=== PATIENT | female | born 1995 | race African-American/Black ===

== ENCOUNTER 2021-05-01 13:10 | Outpatient (RCR) | payer OTHER, SELFPAY ==
[2021-04-10 18:34] VITALS: BP 107/64; PULSE 74
--- NOTE | ~2021-05-01 | US_ITS ---
EXAMINATION: US OB limited w BPP DATE: 04/10/2021 18:04 CDT INDICATION: DFM TECHNIQUE: Real-time transabdominal obstetric ultrasound. FINDINGS: No prior studies for comparison. There is a single living fetus in variable presentation. The placenta is superior/fundal without [facility] previa. WALDEMAR measures 13.8 cm. cardiac activity and movement is noted with a heart rate of 147 beats per minute. Biophysical profile: breathin of 2 movement: 2 of 2 tone: 2 of 2 Amniotic flud pocket: 2 of 2 Total score: 8 of 8 IMPRESSION: 1. Single living intrauterine in variable presentation. 2: Total biophysical profile score of 8/8. 3: Normal WALDEMAR measures 13.8 cm. Reviewed, dictated and finalized at location A.
--- NOTE | ~2021-05-01 | US_ITS ---
US umbilical doppler 04/10/2021 18:20 Indication: IUGR. DFM. Procedure: Umbilical artery pulsed Doppler examination Comparison: Ultrasound dated 04/10/2021 Findings: Umbilical artery pulsed Doppler demonstrates peak systolic to end-diastolic velocity ratios (S/D ratios) is 3.26 (normal range for gestational age is 2.38-4.53. Impression: 1: Normal umbilical arterial Doppler S/D ratios. Reviewed, dictated and finalized at location A. Impression: 1: Normal umbilical arterial Doppler S/D ratios.
[2021-05-01 13:53] VITALS: BP 104/60; PULSE 78
== END 2021-07-06 07:50 | disposition home or self-care (01) ==
LOC: ANHOBOP 13:10
PROVIDERS: Visit Provider Obstetrics & Gynecology
DX: O36.8130 Decreased fetal movements, third trimester, not applicable or unspecified (principal); O36.5930 Maternal care for other known or suspected poor fetal growth, third trimester, not applicable or unspecified; Z3A.28 28 weeks gestation of pregnancy; Z3A.31 31 weeks gestation of pregnancy
CPT/HCPCS: 59025; 76815; 76819; 76820

== ENCOUNTER 2021-05-21 09:48 | Observation (INO) | payer OTHER, SELFPAY ==
[2021-05-21] VITALS (53 sets, daily range): BP systolic 95–114; BP diastolic 43–72; PULSE 56–123; TEMP 36.2; O2SAT 96–100; BMI 27.8
--- NOTE | 2021-05-21 10:30 | OBADM ---
This patient, Oscar Elliott, admitted to the OB room 117 for observation. Patient/family oriented to hospital policies and general routines including ID bracelet, bed and alarms, visiting hours, pain management, procedures, bathroom and other care routines, personal items, smoking policy, room service/diet, and visiting hours. Patient/Family are encouraged to report perceived risks to care and to ask questions if they do not understand what they are told or what they should do.
[2021-05-21 10:51] LABS: Add Urine Microscopic? YES; Appearance Urine Clear (Clear); Bilirubin Urine Negative (Negative); Blood Urine Negative (Negative); Color Urine Straw (Yellow); Glucose Urine UA Negative (Negative); Ketones Urine Negative (Negative); Leukocyte Esterase Ur Negative LEU/UL (Negative); Mucus Urine Rare /lpf; Nitrate Urine Negative (Negative); Protein Urine Negative (Negative); RBC Urine 0-2 /hpf (0-2); Squamous Epithelial Cell Urine Few /hpf (Few); Urobilinogen Urine Negative mg/dL (<2.0); WBC Urine 0-3 /hpf
[2021-05-21] MEDS: ONDANSETRON INJ 4 MG/2 ML VIAL IV PUSH (13:01)
[2021-05-21] MEDS: LACTATED RINGERS 1,000 ML 999 ML IV CONT (13:01)
--- NOTE | 2021-06-11 20:28 | P.PNOB_ITS ---
OB - Triage/Final Diagnosis Visit Information Comments/Additional reasons for admission: I have assessed the risk for this patient, Oscar Elliott, and determined that she would benefit from observation care. Evaluation Laboratory results: Laboratory Tests 05/21/21 10:38 Urine Color Straw Urine Appearance Clear Urine pH 6.0 Ur Specific [place] 1.010 Urine Protein Negative Urine Glucose (UA) Negative Urine Ketones Negative Ur Blood (Man) Negative Urine Nitrate Negative Urine Bilirubin Negative Urine Urobilinogen Negative Leukocyte Esterase Rfl Negative Urine RBC 0-2 Urine WBC 0-3 Ur Squamous Epith Cells Few Urine Mucus Rare Final Diagnosis (1) False labor: Code(s): O47.9 - False labor, unspecified Status: Acute
== END 2021-05-21 14:47 | disposition home or self-care (01) ==
PROVIDERS: Admitting Provider Obstetrics & Gynecology; Visit Provider Obstetrics & Gynecology
DX: O47.03 False labor before 37 completed weeks of gestation, third trimester (principal); Z3A.34 34 weeks gestation of pregnancy
CPT/HCPCS: 81001; 96361; 96374; G0378; G0379; J2405; J7120

== ENCOUNTER 2021-05-27 08:00 | Observation (INO) | payer OTHER, SELFPAY ==
--- NOTE | ~2021-05-27 | US_ITS ---
EXAMINATION: US OB limited w BPP DATE: 05/27/2021 09:42 INDICATION: Spotting. Third trimester. TECHNIQUE: Real-time pelvic ultrasound was performed. COMPARISON: Ultrasound 04/10/2021 FINDINGS: There is a single living fetus in vertex presentation. The placenta is posterior and fundal. h eart rate is 125 beats per minute (bpm). Biophysical profile performed by the technologist: breathing (30 sec sustained breathing in 30 minutes): 2 out of 2 movement (3 gross body movements in 30 minutes): 2 out of 2 tone (one episode of hwbixlh-hnzeutdmp-kwknmus limb movement): 2 out of 2 Amniotic fluid pocket (2 cm): 2 out of 2 Total score: 8 out of 8 IMPRESSION: 1. Single living fetus in vertex presentation. 2. Biophysical profile 8 out of 8. 3. Normal placenta. Reviewed, dictated and finalized at location A.
--- NOTE | 2021-05-27 08:00 | OBADM ---
This patient, Oscar Elliott, admitted to the OB room OB Post 116 for observation. Patient/family oriented to hospital policies and general routines including ID bracelet, bed and alarms, visiting hours, pain management, procedures, bathroom and other care routines, personal items, smoking policy, room service/diet, and visiting hours. Patient/Family are encouraged to report perceived risks to care and to ask questions if they do not understand what they are told or what they should do.
[2021-05-27 08:15] VITALS: BP 108/68; PULSE 77; TEMP 36.4
[2021-05-27 08:20] VITALS: BMI 27.5
--- NOTE | 2021-06-01 06:38 | P.PNOB_ITS ---
OB - Triage/Final Diagnosis Visit Information Date of evaluation: 05/29/21 Reason for evaluation: threatened labor Comments/Additional reasons for admission: I have assessed the risk for this patient, Oscar Elliott, and determined that [facility]
== END 2021-05-27 10:00 | disposition home or self-care (01) ==
PROVIDERS: Admitting Provider Obstetrics & Gynecology; Visit Provider Obstetrics & Gynecology
DX: O47.03 False labor before 37 completed weeks of gestation, third trimester (principal); Z3A.35 35 weeks gestation of pregnancy
CPT/HCPCS: 76815; 76819; G0378; G0379

== ENCOUNTER 2021-06-04 12:42 | Observation (INO) | payer OTHER, SELFPAY ==
[2021-06-04 13:04] VITALS: BP 113/72; PULSE 80
[2021-06-04 13:36] VITALS: TEMP 36.6
[2021-06-04 13:40] VITALS: BMI 28.0
--- NOTE | 2021-06-04 13:42 | OBADM ---
This patient, Oscar Elliott, admitted to the OB room Labor/Delivery/Recovery 103 for observation. Patient/family oriented to hospital policies and general routines including ID bracelet, bed and alarms, visiting hours, pain management, procedures, bathroom and other care routines, personal items, smoking policy, room service/diet, and visiting hours. Patient/Family are encouraged to report perceived risks to care and to ask questions if they do not understand what they are told or what they should do.
== END 2021-06-04 13:40 | disposition home or self-care (01) ==
PROVIDERS: Admitting Provider Obstetrics & Gynecology; Visit Provider Obstetrics & Gynecology
DX: O47.9 False labor, unspecified (principal); Z3A.00 Weeks of gestation of pregnancy not specified
CPT/HCPCS: G0378; G0379

== ENCOUNTER 2021-06-09 10:03 | Observation (INO) | payer OTHER, SELFPAY ==
--- NOTE | 2021-06-09 10:03 | OBADM ---
This patient, Oscar Elliott, admitted to the OB room Labor/Delivery/Recovery 109 for observation. Patient/family oriented to hospital policies and general routines including ID bracelet, bed and alarms, visiting hours, pain management, procedures, bathroom and other care routines, personal items, smoking policy, room service/diet, and visiting hours. Patient/Family are encouraged to report perceived risks to care and to ask questions if they do not understand what they are told or what they should do.
[2021-06-09 10:40] VITALS: BMI 28.2
--- NOTE | 2021-06-09 12:04 | PC.NURSE ---
Discharge instructions reviewed with patient, patient states understanding and agrees to discharge. Patient left ambulating at 1204.
--- NOTE | 2021-06-30 07:51 | PM.OBTRLD ---
OB - Triage/Final Diagnosis Visit Information Comments/Additional reasons for admission: I have assessed the risk for this patient, Oscar Elliott, and determined that she would benefit from observation care. Final Diagnosis (1) False labor: Code(s): O47.9 - False labor, unspecified Status: Acute
== END 2021-06-09 12:04 | disposition home or self-care (01) ==
PROVIDERS: Admitting Provider Obstetrics & Gynecology; Visit Provider Obstetrics & Gynecology
DX: O47.9 False labor, unspecified (principal); Z3A.00 Weeks of gestation of pregnancy not specified
CPT/HCPCS: G0378; G0379

== ENCOUNTER 2021-06-15 18:53 | Inpatient (IN) | payer OTHER, SELFPAY ==
[2021-06-15] VITALS (8 sets, daily range): BP systolic 114–135; BP diastolic 68–84; PULSE 59–70; RESP 18; TEMP 36.3; BMI 28.0
[2021-06-15 20:37] LABS: Basophils Percent Auto 0.2 % (0.2-1.2); Eosinophils Absolute Auto 0.1 K/mm3 (0-0.3); Eosinophils Percent Auto 1.3 % (0-4.4); Hematocrit 31.3 % (37.0-47.0); Hemoglobin 10.7 g/dL (12.0-15.0); Immature Granulocyte Absolute 0.05 K/mm3 (0.00-0.031); Immature Granulocyte Percent A 0.5 % (0-0.5); Lymphocytes Absolute Auto 1.63 K/mm3 (0.9-3.2); Lymphocytes Percent Auto 16.8 % (18.3-44.2); Mean Corpuscular HGB Conc 34.2 g/dl (32-36); Mean Corpuscular Volume 90.7 fl (80-100); Mean Platelet Volume 10.1 fl (7.4-10.4); Monocytes Absolute Auto 0.9 K/mm3 (0.1-0.6); Monocytes Percent Auto 9.4 % (2.6-8.5); Neutrophils Percent Auto 71.8 % (45.5-73.1); Platelet Count Result 172 k/mm3 (150-375); Red Blood Count 3.45 M/mm3 (4.2-5.4); Red Cell Distribution Width 12.2 % (11.5-14.5); White Blood Count 9.7 K/mm3 (4.5-10.0)
--- NOTE | 2021-06-15 20:42 | LDADM ---
This patient, Oscar Elliott, was admitted to Labor/Delivery/Recovery 107 on 06/15/21 at 18:53. Plans for labor, pain management and were discussed with patient. Patient/family oriented to hospital policies and general routines including ID bracelet, bed and alarms, visiting hours, pain management, procedures, bathroom and other care routines, personal items, smoking policy, room service/diet and guest tray routines, infant security routines, and visiting hours. Patient/Family are encouraged to report perceived risks to care and to ask questions if they do not understand what they are told or what they should do. See OBIX for further documentation.
[2021-06-15] MEDS: LACTATED RINGERS 1,000 ML 125 ML IV CONT (21:03)
[2021-06-15] MEDS: OXYTOCIN 30 UNITS/NS 500 ML 30 UNITS/500 ML BAG IV CONT (21:04)
[2021-06-15 22:10] LABS: Amphetamine Screen Urine Negative (Negative); Barbiturate Screen Urine Negative (Negative); Benzodiazepines Screen Urine Negative (Negative); Cannabinoid Screen Urine Positive (Negative); Cocaine Screen Urine Negative (Negative); Methadone Screen Urine Negative (Negative); Opiate Screen Urine Negative (Negative); Phencyclidine Screen Urine Negative (Negative)
[2021-06-16] VITALS (151 sets, daily range): BP systolic 84–141; BP diastolic 59–85; PULSE 49–88; RESP 16–18; TEMP 36.3–37.1; O2SAT 94–100
[2021-06-16] MEDS: LACTATED RINGERS 1,000 ML 125 ML IV CONT ×2 (03:39→04:49)
--- NOTE | 2021-06-16 04:16 | WPDANESEPPF ---
Anes - Initial Pre Proc Eval Procedure: labor epidural Date/Time: 06/16/21 04:16 Surgeon: Jimmie Garvin MD Pre Op Diagnosis: labor pain Pre Op Diagnosis: Rupture of Membranes/Labor Patient Data Age: 25 Gender: F Height: 1.57 m Weight: 69.5 kg Last Vital Signs Temp 36.6 C 06/16/21 03:31 Pulse 57 L 06/16/21 04:16 Resp 18 06/16/21 03:31 BP 127/76 06/16/21 04:16 Pulse Ox 99 06/16/21 04:11 Allergies Allergy/AdvReac Type Severity Reaction Status Date / Time latex AdvReac Swelling Verified 06/15/21 21:05 Home Medications Medication Instructions Recorded Confirmed Type PNV cmb#95-ferrous fumarate-FA 1 tablet PO DAILY 05/21/21 06/15/21 History [] Slow Fe 142 mg PO DAILY 05/21/21 06/15/21 History Laboratory Tests 06/15/21 06/15/21 06/15/21 20:29 20:29 20:29 WBC 9.7 K/mm3 K/mm3 (4.5-10.0) RBC 3.45 M/mm3 L M/mm3 (4.2-5.4) Hgb 10.7 g/dL L g/dL (12.0-15.0) Hct 31.3 % L % (37.0-47.0) MCV 90.7 fl fl (80-100) MCH 31.0 pg pg (26-34) MCHC 34.2 g/dl g/dl (32-36) RDW 12.2 % % (11.5-14.5) Plt Count 172 k/mm3 k/mm3 (150-375) MPV 10.1 fl fl (7.4-10.4) Immature Gran % (Auto) 0.5 % % (0-0.5) Neut % (Auto) 71.8 % % (45.5-73.1) Lymph % (Auto) 16.8 % L % (18.3-44.2) [place] % (Auto) 9.4 % H % (2.6-8.5) Eos % (Auto) 1.3 % % (0-4.4) Baso % (Auto) 0.2 % % (0.2-1.2) Lymph # (Auto) 1.63 K/mm3 K/mm3 (0.9-3.2) [place] # (Auto) 0.9 K/mm3 H K/mm3 (0.1-0.6) Eos # (Auto) 0.1 K/mm3 K/mm3 (0-0.3) Baso # (Auto) 0.0 K/mm3 K/mm3 (0.0-0.1) Abs Immat Gran (auto) 0.05 K/mm3 H K/mm3 (0.00-0.031) Absolute Neuts (auto) 7.0 K/mm3 H K/mm3 (1.3-6.7) Absolute Nucleated RBC 0.0 K/mm3 K/mm3 (0.0-0.012) Nucleated RBC % 0.0 % % (0.0-0.2) Urine Opiates Screen Urine Methadone Screen Ur Barbiturates Screen Ur Phencyclidine Scrn Ur Amphetamine Screen U Benzodiazepines Scrn Urine Cocaine Screen U Cannabinoids Screen RPR Pending Blood Type A Positive Antibody Screen Negative 06/15/21 21:12 WBC RBC Hgb Hct MCV MCH MCHC RDW Plt Count MPV Immature Gran % (Auto) Neut % (Auto) Lymph % (Auto) [place] % (Auto) Eos % (Auto) Baso % (Auto) Lymph # (Auto) [place] # (Auto) Eos # (Auto) Baso # (Auto) Abs Immat Gran (auto) Absolute Neuts (auto) Absolute Nucleated RBC Nucleated RBC % Urine Opiates Screen Negative (Negative) Urine Methadone Screen Negative (Negative) Ur Barbiturates Screen Negative (Negative) Ur Phencyclidine Scrn Negative (Negative) Ur Amphetamine Screen Negative (Negative) U Benzodiazepines Scrn Negative (Negative) Urine Cocaine Screen Negative (Negative) U Cannabinoids Screen Positive A (Negative) RPR Blood Type Antibody Screen Patient hx anesthesia problems: none Family hx anesthesia problems: none PMFSH Social History Social History Smoking status: Never smoker Substance use: former Spiritual care concerns: No Anes - Eval Final PreProcedure Day of Procedure 06/16/21 04:16 Patient weight: overweight Heart: regular rate and rhythm Lungs: clear to auscultation and normal air movement Airway: Mallampati scale Neurological: alert and oriented ASA classification: II Emergent: no Anesthesia type and monitoring: regional epidural and standard monitoring Informed Consent: The patient's anesthetic plan and its attendant ri
[2021-06-16] MEDS: AMPICILLIN 2 GM/NS 100 ML 2 GM/100 ML BAG IVPB (07:59)
--- NOTE | 2021-06-16 07:59 | P.HP_ITS ---
Obstetrics - Admit Note Admission Note: 25 y/o G1 here with srom. record reviewed. No pertinent additions to the history and/or any subsequent changes in the physical findings that are not consistent with the expected course of the were found. Additions to the history and/or subsequent changes in the physical findings michael dorado. None.
[2021-06-16 09:47] LABS: Rapid Plasma Reagin Non-Reactive (NonReactive)
--- NOTE | 2021-06-16 10:09 | PM.OBPRVD ---
OB - Delivery Note Procedure Delivery date: 06/16/21 Intrapartal events: None Induction method: none Delivery augmentation: pitocin Delivery monitor: external FHT and external uterine Route of delivery: Episiotomy description: None Laceration Description: None Quantitative Blood Loss (ml): 241 Anesthesia type: Epidural Narrative: Mother and baby in stable condition. Cord gasses collected and handed off to staff. Baby Date of : 06/16/21 Time of : 09:57 Weeks of gestation at delivery: 38 Infant gender: Female presentation: vertex position: Left Occiput Anterior Placenta delivery description: Spontaneous cord vessel description: Delayed Cord Clamping
[2021-06-16] MEDS: OXYTOCIN 30 UNITS/NS 500 ML 30 UNITS/500 ML BAG 125 UNITS IV CONT (10:30)
[2021-06-16] MEDS: miSOPROStol 200 MCG TABLET 800 MCG RECTAL (10:47)
--- NOTE | 2021-06-16 13:01 | PC.NURSE ---
Patient transferred to post room #278 via wheelchair. Support person present. Oriented to unit, room, information board, rooming in, admission packet and security measures. Patient verbalizes understanding.
[2021-06-16] MEDS: IBUPROFEN 600 MG TABLET PO (16:29)
[2021-06-17] MEDS: IBUPROFEN 600 MG TABLET PO ×2 (00:20→07:46)
[2021-06-17] MEDS: ACETAMINOPHEN 325 MG TABLET 650 MG PO ×3 (01:15→22:55)
[2021-06-17 04:45] LABS: Hematocrit 23.7 % (37.0-47.0)
--- NOTE | 2021-06-17 07:30 | PC.NURSE ---
PT introductions made and plan of care discussed per post , pain management, bottle feeding, daily care activities. PT recipient of any education and or instructions per shift. PT received instructions per one to one discussion, mom baby care guide and demonstrations. PT show no evidence of learning barriers at this time. PT verbalized understanding of such care.
--- NOTE | 2021-06-17 07:41 | PM.OBPNVD ---
OB - PN: Subj Subjective Date/time seen: 06/17/21 07:41 Patient comments: no complaints baby status: doing well OB - PN: Obj Data Labs CBC & Chem 7: 06/17/21 04:36 Labs: Laboratory Results - last 24 hr 06/15/21 06/17/21 20:29 04:36 Hgb 8.0 L Hct 23.7 L RPR Non-reactive OB - PN A/P Plan day: 1 Plan: routine care and discharge home Time Spent With Patient Time: Total time spent is greater than 50% in coordination of care (as documented) at patient's floor/unit and/or counseling patient: Review of Systems Review of Systems: All systems reviewed & are unremarkable except as noted in HPI and below Exam Const: General: cooperative Psych: Attitude: cooperative Thought process: Normal thought process present Thought content: Yes Normal thought content present Insight: Good insight present (Psych)
[2021-06-17] MEDS: DOCUSATE SODIUM 100 MG CAPSULE PO ×2 (07:44→19:15)
[2021-06-17 07:45] VITALS: BP 112/67; PULSE 58; RESP 16; TEMP 36.7; O2SAT 100
[2021-06-17] MEDS: ALPRAZolam (*CRX) 0.25 MG TABLET PO (07:46)
[2021-06-17] MEDS: POLYSACCHARIDE IRON COMPLEX 150 MG CAPSULE PO ×2 (07:46→19:15)
--- NOTE | 2021-06-17 08:45 | WPDANLDPN2 ---
Anes-Prog Note L&D Date/Time: 06/17/21 08:45 Comfortable throughout: labor and delivery Neuraxial method: epidural Epidural/Spinal procedure site: clean & non-tender Neuro status: Neuro function grossly intact. Cardiovascular status: normal Respiratory status: normal Airway patency: baseline Mental status: baseline Post-Op hydration status: normal Vital Signs: Last Vital Signs Temp 98.1 F 06/16/21 19:30 Pulse 69 06/16/21 19:30 Resp 16 06/16/21 19:30 BP 104/64 06/16/21 19:30 Pulse Ox 100 06/16/21 16:30 Pain score (VAS): 0 Post-procedural complaints: none Patient feedback: Patient satisfied with anesthetic care.
--- NOTE | 2021-06-17 11:55 | PCCCNOTE ---
Care Coordination met with pt. this morning to discuss discharge planning. Pt.'s current D/C plan is to return home alone. Pt. states she lives alone but has local friend/family support. FOB does not live in the home but is supportive. Pt. confirms she has everything needed to safely bring baby home. She confirms that she has a car seat and a place for baby to sleep. Car seat in room. Pt. is in process for applying for [facility], she has been provided a list of resources. Pt. informed that she tested positive for THC at time of admission. Pt. states she used prior to and continued to used throughout. Baby has no urine drug screen, meconium is pending. CC completed online report with ANTONIO DESAI, . Will follow.
[2021-06-17 20:00] VITALS: BP 115/76; PULSE 61; RESP 18; TEMP 36.7; O2SAT 100
[2021-06-18] MEDS: IBUPROFEN 600 MG TABLET PO (04:48)
--- NOTE | 2021-06-18 07:00 | PC.NURSE ---
PT introductions made and plan of care discussed per post , pain management, bottle feeding, daily care activities and pending discharge to home. PT and fob recipients of instructions and education this shift. Pt received one to one discussion, mom baby care guide and demonstration. PT show no barriers to learning at this time. PT verbalized understanding of such care.
[2021-06-18 08:00] VITALS: BP 136/75; PULSE 53; RESP 16; TEMP 36.8; O2SAT 100
--- NOTE | 2021-06-18 08:00 | PM.OBPNVD ---
OB - PN: Subj Subjective Date/time seen: 06/18/21 08:00 Patient comments: no complaints baby status: doing well OB - PN: Obj Data Labs CBC & Chem 7: 06/17/21 04:36 OB - PN A/P Plan day: 2 Plan: routine care and discharge home (F/U in 4 weeks) Time Spent With Patient Time: Total time spent is greater than 50% in coordination of care (as documented) at patient's floor/unit and/or counseling patient: Time with patient: less than 15 minutes Review of Systems Review of Systems: All systems reviewed & are unremarkable except as noted in HPI and below Exam Narrative: Fundus firm and vaginal flow controlled. No lower ext redness, warmth, or edema. Negative homans. Const: General: comfortable Chest: Breast/axilla inspection: normal inspection of the breasts Resp: Effort & Inspection: normal respiratory effort Cardio: Rate: regular rate GI: GI Palp: Yes Soft to palpation Psych: Appearance: grossly normal Affect: normal affect Attitude: cooperative Thought content: Yes Normal thought content present Judgement: Good judgement present (Psych)
--- NOTE | 2021-06-18 08:01 | PM.OBDSVD ---
DS: Admitting Diagnosis Discharge Date Labor Admitting Diagnosis Labor OB - DS: Summary OB Procedures : None OB Procedures Intrapartum: Spontaneous Vag Delivery OB Procedures: : None Time Spent with Patient Time attestation: Total time spent providing and/or coordinating discharge services: DS: Data Data Completed and Pending Pending studies at discharge: Pending at discharge 06/16/21 10:04 Surgical [PTH] Routine Discharge Plan Discharge Attending physician on discharge: Jimmie Garvin Discharging Clinician: Soledad Smith Patient Disposition: Home, Self-Care Activity: pelvic rest Diet: regular Discharge Instructions: Education: Mom and Baby Guide Given to: Mother Follow-Up: Call your delivering provider's office for an appointment to be seen in: 4 Weeks Mom and baby should come to the [facility] for the follow-up appointment. Appointment Date/Time: June 20, 2021 at 8:00 am What to expect at your follow-up visit: Blood Pressure Check Call [phone] if you are unable to keep your appointment time. BREAST CARE: * Wear a snug supportive bra. * For engorgement discomfort: Bottle Feeding: * May apply ice packs PERINEAL CARE: * Until bleeding stops, use your ynes bottle after urinating * Change your pad frequently throughout the day * You may take sitz baths several times a day (fill your bathtub with warm water and soak for 20 minutes.) Do NOT bathe in the water * No tub baths until seen by your physician - You may shower ACTIVITY: * Rest as much as possible. * Do not exercise or lift anything heavier than your baby (such as laundry or other children.) * Avoid stairs or driving as much as possible. * Do not put anything into the vagina. No douching, tampons, or sexual activity until seen by physician. NOTIFY PHYSICIAN IF YOU HAVE ANY QUESTIONS OR IF ANY OF THE FOLLOWING SYMPTOMS OCCUR: * If your perineum becomes red, swollen, or more painful than what you have experienced in the hospital. * If your vaginal bleeding becomes foul smelling. * If your vaginal bleeding becomes more heavy than a period or if your bleeding changes from pink to bright red. However, you may pass an occasional walnut-sized clot once or twice for the first week . * If you experience a sharp, shooting pain in you calves. * If you discover a hard, reddened area on your breast or if you experience flu-like symptoms. * If you have a fever of 100.4 or greater DIET: * Eat regular, well-balanced meals. * Drink plenty of fluids daily. If , drink to thirst. Patient Instructions: Antibiotic Form Stand Alone Forms: General Discharge Information Follow-up/Referrals: Ree Kolb CNM [Certified Nurse [employer]] - 4 Weeks Discharge Medications: Continued Slow Fe 142 mg (45 mg iron) Tablet Extended Release 142 mg PO DAILY RF: 0 PNV cmb#95-ferrous fumarate-FA [] 28 mg iron- 800 mcg Tablet 1 tablet PO DAILY RF: 0 Date of admission: 06/15/21 18:53 Primary Care Provider: PHYSICIAN,DIRECTOR [employer] Admitting Provider: Jimmie Garvin Attending physician on admission: Jimmie Garvin Condition: Stable
[2021-06-18] MEDS: DOCUSATE SODIUM 100 MG CAPSULE PO (09:43)
[2021-06-18] MEDS: POLYSACCHARIDE IRON COMPLEX 150 MG CAPSULE PO (09:43)
[2021-06-18] MEDS: ALPRAZolam (*CRX) 0.25 MG TABLET PO (09:44)
[2021-06-18] MEDS: ACETAMINOPHEN 325 MG TABLET 650 MG PO (09:44)
[2021-06-18 09:45] VITALS: PULSE 53; RESP 16; O2SAT 100
--- NOTE | 2021-06-18 09:45 | PC.NURSE ---
PT received discharged instructions per protocol and verbalized understanding of such care. Patient was given the opportunity to view the discharge video Mother & Baby Care, The First Two Weeks and to ask questions. Patient declined viewing the video and has been given the mother/baby guide for home reference.
--- NOTE | 2021-06-18 10:05 | PC.NURSE ---
PT discharged to home ambulatory accompanied by spouse and and taken to waiting car. Follow up appts confirmed
[2021-06-20 08:50] VITALS: BP 120/74; PULSE 68; RESP 20; TEMP 36.9; O2SAT 100
== END 2021-06-18 10:05 | disposition home or self-care (01) | DRG 560 ==
LOC: ANHLDR 20:03 → ANHOB2 06-16 13:09
PROVIDERS: Advanced Practice Midwife; Admitting Provider Obstetrics & Gynecology; Visit Provider Obstetrics & Gynecology
DX: O42.92 Full-term premature rupture of membranes, unspecified as to length of time between rupture and onset of labor (principal); Z37.0 Single live birth; Z3A.38 38 weeks gestation of pregnancy; O99.344 Other mental disorders complicating childbirth; F41.9 Anxiety disorder, unspecified
CPT/HCPCS: 36415; 80307; 85014; 85018; 85025; 86592; 86850; 86900; 86901; 88307; A9270; J0290; J2590; J2795; J7120

== ENCOUNTER 2024-11-01 09:27 | Emergency (ER) | payer OTHER, MEDICAID, SELFPAY ==
--- NOTE | ~2024-11-01 | US_ITS ---
EXAMINATION: US OB <=14 wk fetus w TV DATE: 11/01/2024 13:18 INDICATION: Vaginal bleeding during first trimester TECHNIQUE: Real-time pelvic ultrasound utilizing both a transvaginal and transabdominal probe was pe rformed. The interpreting radiologist was not present for the study. COMPARISON: None. FINDINGS: The uterus measures 8.2 x 3.9 x 5.1 cm. The endometrial complex measures 2-3 mm thickness at the fund us. Endometrial complex measures 13 mm in thickness may lower uterine segment within which there is a 7 mm fluid collection without a definitive yolk sac or pole, potentially representing a gestat ional sac. The mean diameter of the fluid collection measures 6 mm, which would correlate with an est imated gestational age of 5 weeks and 2 days. The right ovary measures 3.0 x 2.9 x 1.0 cm. The left ovary measures 2.5 x 1.9 x 1.3 cm. Vascular shelley w identified within both ovaries on color Doppler. There are few subcentimeter anechoic follicles at the bilateral ovaries. There is no free fluid in the pelvis. IMPRESSION: 1. 6 mm diameter fluid collection within the lower uterine segment without a definitive yolk sac or f etal pole, likely but not definitively an early gestational sac. Differential would remain early, damon led or ectopic . 2. Presuming this represents a gestational sac, the estimated gestational age by ultrasound would be 5 weeks 2 day(s) +/- 3 day(s) with ultrasound estimated date of delivery (AIDEN) of 07/02/2025. Reviewed, dictated and finalized at location B. T BUYER IMPRESSION: 1. 6 mm diameter fluid collection within the lower uterine segment without a de finitive yolk sac or pole, likely but not definitively an early gestation al sac. Differential would remain early, failed or ectopic . 2. Presuming this represents a gestational sac, the estimated gestational age b y ultrasound would be 5 weeks 2 day(s) +/- 3 day(s) with ultrasound estimated d ate of delivery (AIDEN) of 07/02/2025.
[2024-11-01 09:28] VITALS: BP 119/74; PULSE 76; RESP 16; TEMP 36.4; O2SAT 100
--- OUTSIDE RECORDS SUMMARY | 2024-11-01 09:59 | XMS_ITS | Patient Health Summary ---
Author Organization [facility] [email or web address] Address [address] [place] [address] Care Team Providers Care Cytogenetic Technician Name Role Phone Unavailable Primary Care Provider Unavailabl e Note from [facility],non-owned Affiliates and Associated Physician Practices is amultiple site organization consisting of ambulatory clinics and hospital sitesin [place], [place], [place] and [place]. This disclosure is being madepursuant to the Care Everywhere program and may not contain all information available regarding this patient. Last updated 18.[facility] [email or web address] Allergies No known active allergies Active Problems Problem Noted Date Diagnosed Date Screening, , for anatomic survey Abnormal MSAFP (maternal serum alpha-fetoprotein ), elevated Encounter for screening for cervical l ength Family history of chromosomal abnormality Evaluate anatomy not seen on prior sonogram Encounter for ultrasound to assess interval grow th of fetus Social History Tobacco Use Types Packs/Day Years Used Date Smoking Tobacco: Never Assessed Sex and Gender Information Value Date Recorded Sex Assigned at Not on file Gender Identity Not on file Sexual Orientation Not on file Last Filed Vital Signs Vital Sign Reading Time Taken Comments Blood Pressure 101/68 06/02/2021 12:49 PM CDT Pulse 77 06/02/2021 12:49 PM CDT Temperature - - Respiratory Rate - - Oxygen Saturation - - Inhaled Oxygen Concentration - - Weight - - Height - - Body Mass Index - - Procedures * BIOPHYSICAL PROFILE W NST(Performed 06/02/2021) Performed for Abnormal MSAFP (maternal serum alpha-fetoprotein), elevated * BIOPHYSICAL PROFILE W NST(Performed 05/26/2021) Performed for Abnormal MSAFP (maternal serum alpha-fetoprotein), elevated * BIOPHYSICAL PROFILE W NST(Performed 05/19/2021) * BIOPHYSICAL PROFILE W NST(Performed 05/12/2021) * BIOPHYSICAL PROFILE W NST(Performed 05/05/2021) * SONOGRAM - COMPLETE(Performed 03/24/2021) * SONOGRAM - COMPLETE(Performed 02/18/2021) * SONOGRAM - COMPLETE(Performed 01/21/2021) Results * BIOPHYSICAL PROFILE W NST (06/02/2021 1:32 PM CDT) Only the most recent of5 resultswithin the time period is included. Anatomical Region Laterality Modality Other 06/02/2021 1:32 PM CDT Narrative 06/02/2021 3:16 PM CDT ?Formerly named [facility] ? - [place] ? M[facility] & Care Center ?PHONE: ??FAX: Pat. Name: ?OSCAR SUERO Pat. No: ?[id number] Study Date: ?? 06/02/2021 ??1:32pm , Age: ? 1995, 25 Pregnancies: ?? 2, Para 0, Ab 1 Height: ? 62 in Weight: ? 144 lb LMP: ?Unknown GA by Base: ?? 36w1d ?? AIDEN: 06/29/2021 GA by US: ? 36w1d ?? AIDEN: 06/29/2021 GA Selected: ??36w1d (From [facility]) AIDEN: ?06/29/2021 Referring MD: Levy Garvin MD Phone Representative: ??Colleen Coronado RDMS CPT4: ? 78021,02741 BMI: ?26.34 Hist/Ind: ? Elevated MSAFP (7.63 MoM) ?Low-risk NIPT (female) ?Sibling with DeGeorge syndrome MEASUREMENTS & AGE ? GROWTH EVALUATION Measurement ??GA ? Range ? Srce %for GA Ratios ----- ---- ------- BPD ??8.9 cm 36w1d (88t2a-85m6o) Hadl BPD 59% FL/BPD 0.79 (0.71 - 0.87) HC ??32.4 cm 36w5d (52o1e-71y5g) Hadl HC ??32% FL/AC ??0.22 (0.20 - 0.24) AC ??31.7 cm 35w4d (00a5x-46b3d) Hadl AC ??42% HC/AC ??1.02 (0.92 - 1.11) FL ?? 7.1 cm 36w1d (29z8a-15f9u) Hadl FL ??46% CI ? 0.78 (0.70 - 0.86) HL ?? 6.2 cm 36w0d (28p4y-80m1a) Frank HL ??46% GA for sonogram 36w1d (83j8g-30i4o) ?? Weight Estimate: based on (BPD,HC,AC,FL) Avg ?Weight: 2800 gm (2391-3209gm) Had ? : 6lbs, 2oz ? Normal: 2844 gm (2133- 3554gm) Had ? Wt% ? 45% for 36w1d Heart Rate: 148 bpm Amniotic Fluid Index: 25.1cm (07.7-24.8)* Q1: 7.1cm ??Q2: 4.7cm ??Q3: 5.7cm ??Q4: 7.6cm ?? Biophysical Profile: 07/12 Breathin ?? Tone: 2 ?? NST: 2 Movement: ??2 ?? AFV: ??2 EVAL, PLACENTA Presentation: cephalic Placenta: posterior Heart Rate: 148 bpm Amniotic Fluid Volume: increased CLINICAL SUMMARY Study Number: 8 ?? A single fetus is seen in cephalic presentation. ??The measurements today are consistent with appropriate interval growth. ??The AIDEN is based on prior ultrasound examination. ??The amniotic fluid volume is increased. ?? The FHR baseline was 145 bpm during today's reactive NST. ??The FHR variability was moderate and no significant decelerations were detected. ?? IMPRESSION: Single, live, intrauterine at 36w1d ?? Appropriate size and interval growth Amniotic fluid volume is at the upper limits of normal Biophysical profile: Reassuring ?? RECOMMEND: Continue weekly testing through delivery Thank you for allowing us the opportunity to care for your patient. ?? Compa Colbert MD <Electronic Signature> ??06/02/2021 03:13pm Lucas Garvin MD [facility] ORDERABLES * SONOGRAM - COMPLETE (03/24/2021 1:35 PM CDT) Only the most recent of3 resultswithin the time period is included. Anatomical Region Laterality Modality Other 03/24/2021 1:35 PM CDT Narrative 03/24/2021 2:09 PM CDT ? [facility] ? M[facility] & Care Center ?PHONE: ??FAX: Pat. Name: ?OSCAR SUERO. No: ?[id number] Study Date: ?? 03/24/2021 ??1:35pm , Age: ? 1995, 25 Pregnancies: ?? 2, Para 0, Ab 1 Height: ? 62 in Weight: ? 145 lb LMP: ?Unknown GA by Base: ?? 26w1d ?? AIDEN: 06/29/2021 GA by US: ? 25w2d ?? AIDEN: 07/05/2021 GA Selected: ??26w1d (From [facility]) AIDEN: ?06/29/2021 Referring MD: Levy Garvin MD Phone Representative: ??Florin Blackwell, [facility] CPT4: ? 26048 BMI: ?26.52 Hist/Ind: ? Incomplete Anatomy Screen ?Elevated MSAFP (7.63 MoM) 1 in 10 risk for ONTD ?Low Risk NIPT (Female) ?Sibling with DeGeorge syndrome MEASUREMENTS & AGE ? GROWTH EVALUATION Measurement ??GA ? Range ? Srce %for GA Ratios ----- ---- ------- BPD ??6.1 cm 24w5d (64z8x-97i8o) Hadl BPD 5% FL/BPD 0.79 (0.71 - 0.87) HC ??23.5 cm 25w4d (33z9q-02i7n) Hadl HC ??9% FL/AC ??0.22 (0.20 - 0.24) AC ??21.5 cm 26w0d (28a1t-25v8f) Hadl AC ??34% HC/AC ??1.09 (1.00 - 1.19) FL ?? 4.8 cm 26w0d (91r3q-81o0x) Hadl FL ??32% CI ? 0.71 (0.70 - 0.86) GA for sonogram 25w2d (30m6k-02m7m) ?? Weight Estimate: based on (BPD,HC,AC,FL) Hadlock ?Weight: 862 gm (736-988gm) Hadloc ? : 1lbs, 14oz ? Normal: 933 gm (700- 1166gm) Hadlo ? Wt% ? 28% for 26w1d Heart Rate: 151 bpm Amniotic Fluid Index: 04.7cm (Deepest Pocket) EVAL, PLACENTA Presentation: breech Umbilical Cord: 3 Vessels Placenta: posterior Heart Rate: 151 bpm Amniotic Fluid Volume: normal Anatomy!Normal!Abnormal!Suboptimal!Prev. Seen!Comments Cranium ?! ?! ?! ?! ? x ?! Mdl (CSP/Thal! ?! ?! ?! ? x ?! Ventricles ?? ! ?! ?! ?! ? x ?! Choroid Plexu! ?! ?! ?! ? x ?! Cerebellum ?? ! ?! ?! ?! ? x ?! Cerebellar Ve! ?! ?! ?! ? x ?! Cisterna M. ??! ?! ?! ?! ? x ?! Nuchal Fold ??! ?! ?! ?! ? x ?! Orbits ? ! ?! ?! ?! ? x ?! Profile ?! ?? x ??! ?! ?! ? x ?! Nasal Bone ?? ! ?! ?! ?! ? x ?! Lip ?! ?! ?! ?! ? x ?! Maxilla ?! ?! ?! ?! ? x ?! Mandible ? ! ?! ?! ?! ? x ?! Neck ? ! ?! ?! ?! ? x ?! Spine ?! ?! ?! ?! ? x ?! Lungs ?! ?! ?! ?! ? x ?! 4 Chamber Hea! ?! ?! ?! ? x ?! LVOT ? ! ?! ?! ?! ? x ?! RVOT ? ! ?! ?! ?! ? x ?! 3 Vessel View! ?! ?! ?! ? x ?! 3 Vessel Trac! ?! ?! ?! ? x ?! Cross-over ?? ! ?! ?! ?! ? x ?! Ductal Arch ??! ?! ?! ?! ? x ?! Aortic Arch ??! ?! ?! ?! ? x ?! Caval View ?? ! ?! ?! ?! ? x ?! Situs ?! ?! ?! ?! ? x ?! Diaphragm ?! ?! ?! ?! ? x ?! Stomach ?! ?? x ??! ?! ?! ? x ?! Liver ?! ?! ?! ?! ? x ?! Bowel ?! ?! ?! ?! ? x ?! Kidneys ?! ?! ?! ?! ? x ?! Bladder ?! ?? x ??! ?! ?! ? x ?! 3 Vessel Cord! ?! ?! ?! ? x ?! Cord In! ?! ?! ?! ? x ?! Upper Extremi! ?! ?! ?! ? x ?! Hands ?! ?! ?! ?! ? x ?! Lower Extremi! ?! ?! ?! ? x ?! Feet ? ! ?! ?! ?! ? x ?! External Shanika! ?! ?! ?! ? x ?! Placental Cor! ?! ?! ?! ? x ?! CLINICAL SUMMARY Study Number: 3 ?? A single fetus is identified in breech presentation. ??The measurements today are consistent with appropriate growth compared to previous examination. ??The AIDEN selected is based on a prior ultrasound examination. ??The amniotic fluid volume appears normal. ??The placenta is posterior. ??No abnormalities of the profile are detected. IMPRESSION: ?? Live, love IUP at 26w1d size consistent with established AIDEN No sonographic signs of abnormality Normal amniotic fluid volume RECOMMEND: ?? Repeat ultrasound at about 32 weeks to screen for IUGR ?? Begin weekly testing at that time (BPP/NST) Thank you for allowing us the opportunity to care for your patient. Nury Kat MD <Electronic Signature> ??03/24/2021 02:07pm Nury Kat MD [facility] ORDERABLES
--- OUTSIDE RECORDS SUMMARY | 2024-11-01 09:59 | XMS_ITS | Clinical Summary ---
Author Organization [facility] Address [address] [place] [phone] Phone Care Team Providers Care Computer Aided Design Operator Name Role Phone Unavailable Primary Care Provider Unavailabl e Allergies No known active allergies Medications No known medications Social History Tobacco Use Types Packs/Day Years Used Date Smoking Tobacco: Never Assessed Comments Yes Sex and Gender Information Value Date Recorded Sex Assigned at Not on file Legal Sex Female 3:54 PM CDT Gender Identity Not on file Sexual Orientation Not on file Last Filed Vital Signs Vital Sign Reading Time Taken Comments Blood Pressure 93/58 07/16/2022 9:30 PM CDT Pulse 67 07/16/2022 9:30 PM CDT Temperature 37 ??C (98.6 ??F) 07/16/2022 4:04 PM CDT Respiratory Rate 16 07/16/2022 9:30 PM CDT Oxygen Saturation 97% 07/16/2022 9:30 PM CDT Inhaled Oxygen Concentration - - Weight 59 kg (130 lb) 07/16/2022 4:04 PM CDT Height 157.5 cm (5' 2 ) 07/16/2022 4:04 PM CDT Body Mass Index 23.78 07/16/2022 4:04 PM CDT Plan of Treatment Health Maintenance Due Date Last Done Comments PNEUMOCOCCAL VACCINE 0-64 YE ARS (1 of 2 - PCV) 2002 CERVICAL CANCER SCREENING 2017 DTAP/TDAP/TD VACCINES (7 - T d or Tdap) 06/19/2019 06/19/2009, 07/11/2002, 03/19/1998, Additional history exists INFLUENZA VACCINE (#1) 2024 RSV VACCINE (60+ or ) (1 - 1-dose 75+ series) 2071 HEPATITIS B VACCINES Completed 08/15/1997, 1996, 1996 HPV VACCINES Completed 05/14/2011, 06/03, 06/19/2007 Insurance [employer] [place]
--- OUTSIDE RECORDS SUMMARY | 2024-11-01 09:59 | XMS_ITS | Clinical Summary ---
Author Organization [facility] Address [address] [place] [address] Care Team Providers Care Mounter Name Role Phone Unavailable Primary Care Provider Unavailabl e Source Comments [facility],non-owned Affiliates and Associated Physician Practices is amultiple site organization consisting of ambulatory clinics and hospital sitesin [place], [place], [place] and [place]. This disclosure is being madepursuant to the Care Everywhere program and may not contain all information available regarding this patient. Last updated 18.[facility] Allergies No known active allergies Active Problems [...] - - Body Mass Index - - Plan of Treatment Health Maintenance Due Date Last Done Comments PAP SMEAR 1996 HIV SCREENING 2011 HEPATITIS C SCREENING 09/06/2014 DTAP/TDAP/TD VACCINES (1 - Tdap) 2015 HEPATITIS B VACCINE (1 of 3 - 19+ 3-dose series) 2015 COVID-19 VACCINE (2023-2 5 season) 2024 INFLUENZA VACCINE (#1) 2024 DEPRESSION SCREENING 10/03/2024 ZOSTER VACCINE (1 of 2) 2046 HIB VACCINE Aged Out No longer eligi ble based on patient's age to complete this topic HPV VACCINE Aged Out No longer eligi ble based on patient's age to complete this topic MENINGOCOCCAL (Group B) VACCINE Aged Out No longer eligible based on patient's age to complete this topic MENINGOCOCCAL VACCINE Aged Out No sussy nicole eligible based on patient's age to complete this topic PNEUMOCOCCAL VACCINE Aged Out No long er eligible based on patient's age to complete this topic
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
--- OUTSIDE RECORDS SUMMARY | 2024-11-01 09:59 | XMS_ITS | Referral Summary ---
Author Organization [facility] [email or web address] Address [address] [place] [address] Care Team Providers Care Dag Sprayer Name Role Phone Unavailable Primary Care Provider Unavailabl e Source Comments [facility],non-owned Affiliates and Associated Physician Practices is amultiple site organization consisting of ambulatory clinics and hospital sitesin [place], [place], [place] and [place]. This disclosure is being madepursuant to the Care Everywhere program and may not contain all information available regarding this patient. Last updated 18.[facility] [email or web address] Allergies No known active allergies Active Problems [...] Mass Index - - Plan of Treatment Not on file
[2024-11-01 10:43] VITALS: BP 104/64; PULSE 70; RESP 16; TEMP 36.6; O2SAT 99
[2024-11-01 10:54] LABS: Basophils Percent Auto 0.4 % (0.2-1.2); Eosinophils Absolute Auto 0.1 K/mm3 (0-0.3); Eosinophils Percent Auto 1.4 % (0-4.4); Hematocrit 37.7 % (37.0-47.0); Hemoglobin 12.6 g/dL (12.0-15.0); Immature Granulocyte Absolute 0.02 K/mm3 (0.00-0.031); Immature Granulocyte Percent A 0.3 % (0-0.5); Lymphocytes Absolute Auto 1.92 K/mm3 (0.9-3.2); Lymphocytes Percent Auto 24.6 % (18.3-44.2); Mean Corpuscular HGB Conc 33.4 g/dl (32-36); Mean Corpuscular Hemoglobin 30.9 pg (26-34); Mean Corpuscular Volume 92.4 fl (80-100); Mean Platelet Volume 8.9 fl (7.4-10.4); Monocytes Absolute Auto 0.6 K/mm3 (0.1-0.6); Monocytes Percent Auto 7.3 % (2.6-8.5); Neutrophils Absolute Auto 5.2 K/mm3 (1.3-6.7); Platelet Count Result 259 k/mm3 (150-375); Red Blood Count 4.08 M/mm3 (4.2-5.4); Red Cell Distribution Width 12.5 % (11.5-14.5); White Blood Count 7.8 K/mm3 (4.5-10.0)
[2024-11-01 11:00] VITALS: BP 109/59; PULSE 68; RESP 16; O2SAT 100
[2024-11-01 11:06] LABS: INR 0.9; Partial Thromboplastin Time 26.7 Seconds (22.3-36.8); Prothrombin Time 12.9 Seconds (11.1-14.7)
[2024-11-01 11:08] LABS: Alanine Aminotransferase 13 U/L (6-35); Albumin Level 4.7 g/dL (3.5-5.1); Alkaline Phosphatase 53 U/L (38-126); Anion Gap 13 mmol/L (4-12); Aspartate Amino Transferase 22 U/L (14-36); Bilirubin,Total 0.6 mg/dL (0.2-1.3); Blood Urea Nitrogen 12 mg/dL (7-17); Calcium 9.5 mg/dL (8.4-10.2); Carbon Dioxide 25 mmol/L (22-30); Chloride 102 mmol/L (98-107); Estimated CRCL calculation 109 ml/min; Estimated Glomerular Filt Rate > 60; Glucose 91 mg/dL (65-110); Potassium 4.1 mmol/L (3.4-5.0); Sodium 140 mmol/L (137-145)
[2024-11-01 11:30] VITALS: BP 110/61; PULSE 70; RESP 16; TEMP 36.6; O2SAT 99
[2024-11-01 12:35] VITALS: BP 104/68; PULSE 68; RESP 16; TEMP 36.6; O2SAT 98
--- OUTSIDE RECORDS SUMMARY | 2024-11-01 12:45 | XMS_ITS | Patient Health Summary ---
Author Organization [facility] [employer] Address [address] [place] [address] Care Team Providers Care Transportation Officer Name Role Phone Unavailable Primary Care Provider Unavailabl e Note from [facility],non-owned Affiliates and Associated Physician Practices is amultiple site organization consisting of ambulatory clinics and hospital sitesin [place], [place], [place] and [place]. This disclosure is being madepursuant to the Care Everywhere program and may not contain all information available regarding this patient. Last updated 18.[facility] [employer] Allergies No known active allergies Active Problems [...] PM CDT Narrative 06/02/2021 3:16 PM CDT ?[facility] ? - [place] ? [facility] ?PHONE: ??FAX: Pat. Name: ?OSCAR SUERO Pat. No: ?[id number] Study Date: ?? 06/02/2021 ??1:32pm , Age: ? 1995, 25 Pregnancies: ?? 2, Para 0, Ab 1 Height: ? 62 in Weight: ? 144 lb LMP: ?Unknown GA by Base: ?? 36w1d ?? AIDEN: 06/29/2021 GA by US: ? 36w1d ?? AIDEN: 06/29/2021 GA Selected: ??36w1d (From [facility]) AIDEN: ?06/29/2021 Referring MD: Levy Garvin MD Environmental Services Worker: ??Colleen [place] RDMS CPT4: ? 60918,92711 BMI: ?26.34 Hist/Ind: ? Elevated MSAFP (7.63 MoM) ?Low-risk NIPT (female) ?Sibling with DeGeorge syndrome MEASUREMENTS & AGE ? GROWTH EVALUATION Measurement ??GA ? Range ? Srce %for GA Ratios ----- ---- ------- BPD ??8.9 cm 36w1d (02g4t-54h2h) Hadl BPD 59% FL/BPD 0.79 (0.71 - 0.87) HC ??32.4 cm 36w5d (25t4s-07k5m) Hadl HC ??32% FL/AC ??0.22 (0.20 - 0.24) AC ??31.7 cm 35w4d (71h8g-12f7b) Hadl AC ??42% HC/AC ??1.02 (0.92 - 1.11) FL ?? 7.1 cm 36w1d (19y8x-24r0t) Hadl FL ??46% CI ? 0.78 (0.70 - 0.86) HL ?? 6.2 cm 36w0d (75g9a-25n7q) Frank HL ??46% GA for sonogram 36w1d (50b4z-20n1m) ?? Weight Estimate: based on (BPD,HC,AC,FL) Avg [...] <Electronic Signature> ??06/02/2021 03:13pm Lucas Garvin MD [facility] ORDERABLES * SONOGRAM - COMPLETE (03/24/2021 1:35 PM CDT) Only the most recent of3 resultswithin the time period is included. Anatomical Region Laterality Modality Other 03/24/2021 1:35 PM CDT Narrative 03/24/2021 2:09 PM CDT ? [facility] ? Maternal & Care Center ?PHONE: ??FAX: Pat. Name: ?OSCAR SUERO. No: ?[id number] Study Date: ?? 03/24/2021 ??1:35pm , Age: ? 1995, 25 Pregnancies: ?? 2, Para 0, Ab 1 Height: ? 62 in Weight: ? 145 lb LMP: ?Unknown GA by Base: ?? 26w1d ?? AIDEN: 06/29/2021 GA by US: ? 25w2d ?? AIDEN: 07/05/2021 GA Selected: ??26w1d (From [facility]) AIDEN: ?06/29/2021 Referring MD: Levy Garvin MD Environmental Services Worker: ??Florin Blackwell, [facility] CPT4: ? 67123 BMI: ?26.52 Hist/Ind: ? Incomplete Anatomy Screen ?Elevated MSAFP (7.63 MoM) 1 in 10 risk for ONTD ?Low Risk NIPT (Female) ?Sibling with DeGeorge syndrome MEASUREMENTS & AGE ? GROWTH EVALUATION Measurement ??GA ? Range ? Srce %for GA Ratios ----- ---- ------- BPD ??6.1 cm 24w5d (98i9k-58m0i) Hadl BPD 5% FL/BPD 0.79 (0.71 - 0.87) HC ??23.5 cm 25w4d (53w0k-96r4h) Hadl HC ??9% FL/AC ??0.22 (0.20 - 0.24) AC ??21.5 cm 26w0d (42r9y-90y8b) Hadl AC ??34% HC/AC ??1.09 (1.00 - 1.19) FL ?? 4.8 cm 26w0d (83d8s-14d0y) Hadl FL ??32% CI ? 0.71 (0.70 - 0.86) GA for sonogram 25w2d (06i7q-92v4g) ?? Weight Estimate: based on (BPD,HC,AC,FL) Hadlock [...] <Electronic Signature> ??03/24/2021 02:07pm Nury Kat MD [facility] ORDERABLES
--- OUTSIDE RECORDS SUMMARY | 2024-11-01 12:45 | XMS_ITS | Referral Summary ---
Author Organization [facility] [employer] Address [address] [place] [address] Care Team Providers Care Applications Consultant Name Role Phone Unavailable Primary Care Provider Unavailabl e Source Comments [facility],non-owned Affiliates and Associated Physician Practices is amultiple site organization consisting of ambulatory clinics and hospital sitesin [place], [place] and [place]. This disclosure is being madepursuant to the Care Everywhere program and may not contain all information available regarding this patient. Last updated 18.[facility] [employer] Allergies No known active allergies Active Problems [...]
--- OUTSIDE RECORDS SUMMARY | 2024-11-01 12:45 | XMS_ITS | Clinical Summary ---
Author Organization [facility] [employer] Address [address] [place] [address] Care Team Providers Care Buyer Liaison Name Role Phone Unavailable Primary Care Provider Unavailabl e Source Comments [facility] [employer],non-owned Affiliates and Associated Physician Practices is amultiple site organization consisting of ambulatory clinics and hospital sitesin [place], [place], [place] and [place]. This disclosure is being madepursuant to the Care Everywhere program and may not contain all information available regarding this patient. Last updated 18.[facility] [employer] Allergies No known active allergies Active Problems [...]
--- OUTSIDE RECORDS SUMMARY | 2024-11-01 12:45 | XMS_ITS | Clinical Summary ---
Author Organization [facility] Address [address] [place] [address] Care Team Providers Care Breeder Service Technician Name Role Phone No, Physician Primary Care Provider [phone] Allergies Active Allergy Reactions Criticality Noted Date Comments Latex Swelling Medium 12/21/2021 Reaction: Medications traMADol (ULTRAM) 50 mg tablet Take 1-2 tablets (50-100 mg total) by mouth every 6 (six) hours as needed for pain (1 tablet for mild to moderate pain or 2 tablets for severe pain). 20 tablet 8 Active Additional Information Patient not taking.Reported on 03/29/2022 ibuprofen (ADVIL,MOTRIN) 600 mg tablet Take 1 tablet (600 mg total) by mouth 3 (three) times a day. Take with food. 30 tablet 8 Active Additional Information Patient not taking.Reported on 03/29/2022 Alpa 0.25-35 mg-mcg per tablet 2 Active Active Problems Problem Noted Date Diagnosed Date Abnormal MSAFP (maternal serum alpha-fetoprotein ), elevated 03/17/2023 03/17/2023 Evaluate anatomy not seen on prior sonogram 03/0303/17/2023 Risk for sexually transmitted disease 03/05/2016 Overview (01/13/2017): Possible exposure to STD Screening status 01/19/2016 Overview (01/13/2017): Screening for STDs (sexually transmitted diseases) Immunizations Name Administration Dates Next Due Tdap 03/06/2023 Medical History Medical History Date Comments Ovarian cyst Social History Tobacco Use Types Packs/Day Years Used Date Smoking Tobacco: Never Smokeless Tobacco: Never Tobacco Cessation:Counseling Given: Yes Alcohol Use Standard Drinks/Week Comments No 0 (1 standard drink = 0.6 oz pur e alcohol) Personal Safety Answer Date Recorded Have you ever been in or are you currently in a harmful physical or emotional relationship or is someone making you feel afraid or unsafe? 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 Gender Identity Not on file Sexual Orientation Not on file Obstetrics History Last Filed Vital Signs Vital Sign Reading Time Taken Comments Blood Pressure 110/60 03/23/2023 4:00 PM CDT Pulse 75 03/23/2023 4:00 PM CDT Temperature 36.9 ??C (98.5 ??F) 03/23/2023 4:00 PM CD T Respiratory Rate 19 03/23/2023 4:00 PM CDT Oxygen Saturation 99% 03/23/2023 4:00 PM CDT Inhaled Oxygen Concentration - - Weight 63.5 kg (140 lb) 03/23/2023 4:00 PM CDT Height 157.5 cm (5' 2 ) 03/23/2023 4:00 PM CDT Body Mass Index 25.61 03/23/2023 4:00 PM CDT Plan of Treatment Health Maintenance Due Date Last Done Comments Cervical Cancer Screening 1996 Depression Screening 1996 Hepatitis C Screening 1996 Varicella Vaccines (1 of 2 - 13+ 2-dose series) 2009 Hepatitis B Screening 2014 Regular Well Visit/Exam 18-64 2014 Influenza Vaccine (#1) 2024 DTaP/Tdap/Td Vaccine (2 - Td or Tdap) 03/06/2033 03/06/2023 HPV Vaccines Aged Out No longer eligi ble based on patient's age to complete this topic Pneumococcal vaccine <65 Aged Out No longer eligible based on patient's age to complete this topic Insurance [facility] Care Teams Breeder Service Technician Relationship Specialty Start Date End Date No, Physician PCP - General 12/21/21
--- OUTSIDE RECORDS SUMMARY | 2024-11-01 12:45 | XMS_ITS | Clinical Summary ---
Author Organization [facility] Address [address] [place] [phone] Phone Care Team Providers Care Utility Supervisor Boat [employer] Plant Name Role Phone Unavailable Primary Care Provider [...]
--- OUTSIDE RECORDS SUMMARY | 2024-11-01 12:46 | XMS_ITS | Referral Summary ---
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
--- OUTSIDE RECORDS SUMMARY | 2024-11-01 12:46 | XMS_ITS | Clinical Summary ---
Author Organization [facility] Address [address] [place] [address] Phone Care Team Providers Care Angle Bender Name Role Phone Soleadd Smith Sakshi VUONG CNM Primary Care Provider [...] Department Care Team Description 10/03/2024 6:35 PM SURGERY ATTENDANT - 10/03/2024 8:35 PM SURGERY ATTENDANT Emergency [facility] [address] [place] [address] Nazanin Oconnell PAC Head injury [...] Comments Blood Pressure 112/64 10/03/2024 8:33 PM SURGERY ATTENDANT Pulse 80 10/03/2024 8:33 PM SURGERY ATTENDANT Temperature 36.6 ??C (97.9 ??F) 10/03/2024 8:33 PM CS T Respiratory Rate 18 10/03/2024 8:33 PM SURGERY ATTENDANT Oxygen Saturation 100% 10/03/2024 8:33 PM SURGERY ATTENDANT Inhaled Oxygen Concentration - - Weight 73 kg (161 lb) 10/03/2024 5:32 PM SURGERY ATTENDANT Height 160 cm (5' 3 ) 10/03/2024 5:32 PM SURGERY ATTENDANT Body Mass Index 28.52 10/03/2024 5:32 PM SURGERY ATTENDANT Plan of Treatment Health Maintenance Due Date [...] CONTRAST Stat with Interpretation 10/03/2024 7:[address] THORACIC SPINE W/O CONTRAST Stat with Interpretation 10/03/2024 7:[address] CERVICAL SPINE WO/ CONTRAST Stat with Interpretation 10/03/2024 7:[address] HEAD OR BRAIN WO CONTRAST Stat with Interpretation 10/03/2024 7:24 PM SURGERY ATTENDANT POCT URINE HCG () STAT 10/03/2024 6:48 PM SURGERY ATTENDANT HEPATITIS C ANTIBODY STAT 01/20/2024 1:26 PM CDT from Last 3 Months or Most Recently Relevant to Health Maintenance Results * CT LUMBAR SPINE WO CONTRAST (10/03/2024 7:48 PM SURGERY ATTENDANT) Anatomical Region Laterality Modality Spine N/A Computed Tomogra phy 10/03/2024 8:07 PM SURGERY ATTENDANT Impressions 10/03/2024 8:09 PM SURGERY ATTENDANT IMPRESSION: No acute abnormality identified. ?? Narrative 10/03/2024 8:09 PM SURGERY ATTENDANT EXAM DESCRIPTION: ?? CT LUMBAR SPINE WO [...] PM T: ??10/03/2024 8:07 PM Report ID: [id number] Reading Location: ??[id number] Procedure Note Santiago Gasca MD - 10/03/2024 [...] Santiago Gasca M.D. AR: MAC Report ID: [id number] Reading Location: [place] [id number] IMPRESSION: No acute abnormality identified. Elizabeth Malloy MD IM CT ORDERABLES Final Result * CT THORACIC SPINE W/O CONTRAST (10/03/2024 7:34 PM SURGERY ATTENDANT) Anatomical Region Laterality Modality Spine N/A Computed Tomogra phy 10/03/2024 8:08 PM SURGERY ATTENDANT Impressions 10/03/2024 8:10 PM SURGERY ATTENDANT IMPRESSION: No acute abnormality identified. ?? Narrative 10/03/2024 8:10 PM SURGERY ATTENDANT EXAM DESCRIPTION: ?? CT THORACIC SPINE W/O [...] PM T: ??10/03/2024 8:08 PM Report ID: [id number] Reading Location: ??[id number] Procedure Note Santiago Gasca MD - 10/03/2024 [...] Santiago Gasca M.D. AR: MAC Report ID: [id number] Reading Location: [id number] IMPRESSION: No acute abnormality identified. Elizabeth Malloy MD IMG CT ORDERABLES Final Result * CT CERVICAL SPINE WO/ CONTRAST (10/03/2024 7:25 PM SURGERY ATTENDANT) Anatomical Region Laterality Modality Spine N/A Computed Tomogra phy 10/03/2024 7:37 PM SURGERY ATTENDANT Impressions 10/03/2024 7:39 PM SURGERY ATTENDANT IMPRESSION: No acute findings of the cervical spine. Narrative 10/03/2024 7:39 PM SURGERY ATTENDANT EXAM DESCRIPTION: ?? CT CERVICAL SPINE WO/ [...] PM T: ??10/03/2024 7:37 PM Report ID: [id number] Reading Location: ??[id number] Procedure Note Quinten Villavicencio MD - 10/03/2024 [...] Quinten Villavicencio M.D. KR: OLIVIA Report ID: [id number] Reading Location: [id number] IMPRESSION: No acute findings of the cervical spine. us Elizabeth Malloy MD [facility] [place] CT ORDERABLES Final Result * CT HEAD OR BRAIN WO CONTRAST (10/03/2024 7:24 PM SURGERY ATTENDANT) Anatomical Region Laterality Modality Head N/A Computed Tomogra phy 10/03/2024 7:35 PM SURGERY ATTENDANT Impressions 10/03/2024 7:37 PM SURGERY ATTENDANT IMPRESSION: No acute intracranial findings. Narrative 10/03/2024 7:37 PM SURGERY ATTENDANT EXAM DESCRIPTION: CT HEAD OR BRAIN WO [...] PM T: ??10/03/2024 7:35 PM Report ID: [id number] Reading Location: ??[id number] Procedure Note Quinten Villavicencio MD - 10/03/2024 [...] Quinten Villavicencio M.D. KR: OLIVIA Report ID: [id number] Reading Location: [id number] IMPRESSION: No acute intracranial findings. us Elizabeth Malloy MD IMG CT ORDERABLES Final Result * POCT Urine HCG () (10/03/2024 6:48 PM SURGERY ATTENDANT) POC URINE Negative POC URINE CONTROL [place] Urine 10/03/2024 6:48 PM SURGERY ATTENDANT us Elizabeth Malloy MD POINT OF CARE TESTING (M ANUAL) Final Result * Hepatitis C Antibody (01/20/2024 1:26 PM CDT) hepatitis C antibody 0.11 <1 S/CO 01/20/2024 10:45 PM CDT [facility] Comment: Signal/Cutoff ratio ??< 0.79 is Nondetected [...] PAC CHEMISTRY ORDERABLES Final R esult [facility] [address] [place] [address], from Last 3 Months or Most Recently Relevant to Health Maintenance Insurance [place]ICA[place] Care Teams Angle Bender Relationship Specialty Start Date End Date Soledad Smith APRN, MICHELL [address] [place] [address] PCP - General Certified Nurse Steamtable Worker 07/07/22
--- NOTE | 2024-11-01 14:38 | ED.GENADULT ---
HPI - General Adult General Chief complaint: Vaginal Bleeding Stated complaint: vaginal bleeding/cramping, back pain, preg+ Time Seen by Provider: 11/01/24 11:42 History of Present Illness HPI narrative: 29-year-old female presents to the emergency department for evaluation for vaginal bleeding during . Patient states her last menstrual period was 09/13/2024. Patient began having some vaginal spotting on Tuesday and increased on Tuesday. Patient is currently having some lower abdominal cramping. Patient has not yet had follow-up with OB for this . Patient lay typically follows up at [facility]. Patient has had 3 miscarriages and does have 1 living child. Related Data Home Medications ?Medication ?Instructions ?Recorded ?Confirmed ?Last Taken ?Type ferrous sulfate 142 mg (45 mg 142 mg PO DAILY 05/21/21 06/15/21 06/14/21 History iron) tablet,extended release (Slow Fe) vit no.95-ferrous 1 tablet PO DAILY 05/21/21 06/15/21 06/14/21 History fumarate 28 mg-folic acid 800 mcg tablet () Allergies Allergy/AdvReac Type Severity Reaction Status Date / Time latex AdvReac Swelling Verified 06/15/21 21:05 Review of Systems Review of Systems: All systems reviewed & are unremarkable except as noted in HPI and below PMFSH Social History Social History Smoking status: Never smoker Substance use: former Spiritual care concerns: No Exam Narrative: APPEARANCE: Well appearing, no pain, no distress, well-nourished. HEAD: normocephalic, atraumatic. EYES: PERRLA/EOMI, conjunctivae clear. NOSE: Normal no drainage EARS:TMS clear with good light reflex. THROAT: Pharynx clear, no exudate. NECK: Supple. No adenopathy, no masses. RESPIRATORY: Airway patent, respirations nonlabored. Clear to auscultation bilaterally, no rales, rhonchi, wheezing. CARDIOVASCULAR: Regular rate and rhythm without murmurs rubs or gallops. ABDOMINAL: Soft, nontender, nondistended, normal bowel sounds MUSCULOSKELETAL: Moves all extremities. Strength/ROM intact, No edema, No calf tenderness. NEURO: Alert. Cranial nerves II through XII intact. Good gait. Good coordination Pelvic exam: Mild vaginal bleeding coming from the cervix no evidence of injury, cervix is nonfriable and well-appearing. SKIN: Warm, dry. Normal Color Course Vital Signs Vital signs: Vital Signs Temperature 97.6 F 11/01/24 09:28 Pulse Rate 76 11/01/24 09:28 Respiratory Rate 16 11/01/24 09:28 Blood Pressure 119/74 11/01/24 09:28 Pulse Oximetry 100 11/01/24 09:28 Temperature 97.8 F 11/01/24 12:35 Pulse Rate 75 11/01/24 15:01 Respiratory Rate 16 11/01/24 15:01 Blood Pressure 109/70 11/01/24 15:01 Pulse Oximetry 99 11/01/24 15:01 Medical Decision Making MDM Narrative Medical decision making narrative: 29-year-old female presents emergency department for evaluation for concern for bleeding during early . Patient is afebrile with no leukocytosis and a hemoglobin of 12.6. Patient's blood type is A positive. Patient's INR is 0.9. No significant abnormalities on the patient's CMP patient's beta hCG is 1515.7. Ultrasound showed 6 mm diameter fluid collection within the lower uterine segment without a definitive yolk sac or pole, likely but not definitively an early gestational sac. Differential would remain early, failed or ectopic . Presuming this represents a gestational sac, the estimated gestational age by ultrasound would be 5 weeks 2 day(s) +/- 3 day(s) with ultrasound estimated date of delivery (AIDEN) of 07/02/2025. Patient was updated on the results of her workup. Patient will not be treated with RhoGAM. Patient was encouraged of close follow-up with OB Gyne. Patient will be provided medications for pain control. Patient was comfortable plan for discharge and close follow-up. Differential Diagnosis Differential Diagnosis: Vaginal bleeding, threatened miscarriage, ectopic Vital Signs Vital Signs: Vital Signs Temperature 97.6 F 11/01/24 09:28 Pulse Rate 76 11/01/24 09:28 Respiratory Rate 16 11/01/24 09:28 Blood Pressure 119/74 11/01/24 09:28 Pulse Oximetry 100 11/01/24 09:28 Temperature 97.8 F 11/01/24 12:35 Pulse Rate 75 11/01/24 15:01 Respiratory Rate 16 11/01/24 15:01 Blood Pressure 109/70 11/01/24 15:01 Pulse Oximetry 99 11/01/24 15:01 Lab Data Lab results reviewed: Yes I reviewed the patient's lab results. 11/01/24 10:41 11/01/24 10:41 Labs: Lab Results 11/01/24 Range/Units 10:41 WBC 7.8 (4.5-10.0) K/mm3 RBC 4.08 L (4.2-5.4) M/mm3 Hgb 12.6 D (12.0-15.0) g/dL Hct 37.7 (37.0-47.0) % MCV 92.4 (80-100) fl MCH 30.9 (26-34) pg MCHC 33.4 (32-36) g/dl RDW 12.5 (11.5-14.5) % Plt Count 259 D (150-375) k/mm3 MPV 8.9 (7.4-10.4) fl Immature Gran % (Auto) 0.3 (0-0.5) % Neut % (Auto) 66.0 (45.5-73.1) % Lymph % (Auto) 24.6 (18.3-44.2) % [facility] % (Auto) 7.3 (2.6-8.5) % Eos % (Auto) 1.4 (0-4.4) % Baso % (Auto) 0.4 (0.2-1.2) % Lymph # (Auto) 1.92 (0.9-3.2) K/mm3 [facility] # (Auto) 0.6 (0.1-0.6) K/mm3 Eos # (Auto) 0.1 (0-0.3) K/mm3 Baso # (Auto) 0.0 (0.0-0.1) K/mm3 Abs Immat Gran (auto) 0.02 (0.00-0.031) K/mm3 Absolute Neuts (auto) 5.2 (1.3-6.7) K/mm3 Absolute Nucleated RBC 0.000 (0.0-0.012) K/mm3 Nucleated RBC % 0.0 (0.0-0.2) % PT 12.9 (11.1-14.7) Seconds INR 0.9 APTT 26.7 (22.3-36.8) Seconds Sodium 140 (137-145) mmol/L Potassium 4.1 (3.4-5.0) mmol/L Chloride 102 (98-107) mmol/L Carbon Dioxide 25 (22-30) mmol/L Anion Gap 13 H (4-12) mmol/L BUN 12 (7-17) mg/dL Creatinine 0.63 L (0.7-1.0) mg/dL Estim Creat Clear Calc 109 ml/min Estimated GFR > 60 (59 - ) Glucose 91 (65-110) mg/dL Calcium 9.5 (8.4-10.2) mg/dL Total Bilirubin 0.6 (0.2-1.3) mg/dL AST 22 (14-36) U/L ALT 13 (6-35) U/L Alkaline Phosphatase 53 (38-126) U/L Total Protein 8.0 (6.3-8.2) g/dL Albumin 4.7 (3.5-5.1) g/dL Beta HCG, Quant 1515.70 mIU/ML Blood Type A Positive Antibody Screen Negative Screen Not Reportable Baby's Blood Type Not Reportable Baby's AICHA Not Reportable Doses of RhIg Required 0 Imaging Data Radiologist's impression: Impressions Obstetrics Ultrasound 11/01/24 13:20 IMPRESSION: 1. 6 mm diameter fluid collection within the lower uterine segment without a definitive yolk sac or pole, likely but not definitively an early gestational sac. Differential would remain early, failed or ectopic . 2. Presuming this represents a gestational sac, the estimated gestational age by ultrasound would be 5 weeks 2 day(s) +/- 3 day(s) with ultrasound estimated date of delivery (AIDEN) of 07/02/2025. Discharge Plan Discharge Clinical Impression: Vaginal bleeding affecting early Patient Disposition: Home, Self-Care Condition: Stable Instructions: Antibiotic Form, Threatened Miscarriage (ED), (ED) Additional Instructions: You will need to have very close follow-up with OB Gyne in the next 1-2 days. Please call for follow-up. Home medications for pain control. Drink plenty of fluids. If you have any worsening symptoms then please call or return to the emergency department. Patient Language: Gibraltarian Prescriptions: New hydrocodone-acetaminophen 5-325 mg tablet 1 tablet PO Q12H PRN (Reason: pain) Qty: 14 0RF No Action Slow Fe 142 mg (45 mg iron) Tablet Extended Release 142 mg PO DAILY PNV cmb#95-ferrous fumarate-FA [] 28 mg iron- 800 mcg Tablet 1 tablet PO DAILY Follow-up/Referrals: UNKNOWN,DOCTOR [Primary Care Provider] -
[2024-11-01 15:01] VITALS: BP 109/70; PULSE 75; RESP 16; O2SAT 99
== END 2024-11-01 15:02 | disposition home or self-care (01) ==
PROVIDERS: Emergency Provider Emergency Medicine
DX: O20.9 Hemorrhage in early pregnancy, unspecified (principal); Z3A.01 Less than 8 weeks gestation of pregnancy
CPT/HCPCS: 36415; 76801; 76817; 80053; 84702; 85025; 85461; 85610; 85730; 86850; 86900; 86901; 99284

== ENCOUNTER 2024-11-07 16:43 | Outpatient (CLI) | payer OTHER, MEDICAID, SELFPAY ==
--- OUTSIDE RECORDS SUMMARY | 2024-11-07 16:48 | XMS_ITS | Clinical Summary ---
Author Organization [facility] Address [address] [place] [address] Phone Care Team Providers Care Cutter Operator Helper Name Role Phone Soledad Smith Sakshi VUONG [...] Department Care Team Description 10/03/2024 6:35 PM HOGSHEAD BUILDER - 10/03/2024 8:35 PM HOGSHEAD BUILDER Emergency [facility] Emergency [address] [place] [address] Nazanin Oconnell PAC Head injury [...] Comments Blood Pressure 112/64 10/03/2024 8:33 PM HOGSHEAD BUILDER Pulse 80 10/03/2024 8:33 PM HOGSHEAD BUILDER Temperature 36.6 C (97.9 F) 10/03/2024 8:33 PM HOGSHEAD BUILDER Respiratory Rate 18 10/03/2024 8:33 PM HOGSHEAD BUILDER Oxygen Saturation 100% 10/03/2024 8:33 PM HOGSHEAD BUILDER Inhaled Oxygen Concentration - - Weight 73 kg (161 lb) 10/03/2024 5:32 PM HOGSHEAD BUILDER Height 160 cm (5' 3 ) 10/03/2024 5:32 PM HOGSHEAD BUILDER Body Mass Index 28.52 10/03/2024 5:32 PM HOGSHEAD BUILDER Plan of Treatment Health Maintenance Due Date [...] CONTRAST Stat with Interpretation 10/03/2024 7:[address] THORACIC SPINE W/O CONTRAST Stat with Interpretation 10/03/2024 7:[address] CERVICAL SPINE WO/ CONTRAST Stat with Interpretation 10/03/2024 7:[address] HEAD OR BRAIN WO CONTRAST Stat with Interpretation 10/03/2024 7:24 PM HOGSHEAD BUILDER POCT URINE HCG () STAT 10/03/2024 6:48 PM HOGSHEAD BUILDER HEPATITIS C ANTIBODY STAT 01/20/2024 1:26 PM CDT from Last 3 Months or Most Recently Relevant to Health Maintenance Results * CT LUMBAR SPINE WO CONTRAST (10/03/2024 7:48 PM HOGSHEAD BUILDER) Anatomical Region Laterality Modality Spine N/A Computed Tomogra phy 10/03/2024 8:07 PM HOGSHEAD BUILDER Impressions 10/03/2024 8:09 PM HOGSHEAD BUILDER IMPRESSION: No acute abnormality identified. Narrative 10/03/2024 8:09 PM HOGSHEAD BUILDER EXAM DESCRIPTION: CT LUMBAR SPINE WO CONTRAST [...] Santiago Gasca M.D. AR: MAC Report ID: [id number] Reading Location: [id number] Procedure Note Santiago Gasca MD - 10/03/2024 [...] Santiago Gasca M.D. AR: MAC Report ID: [id number] Reading Location: [id number] IMPRESSION: No acute abnormality identified. Elizabeth Malloy MD IM CT ORDERABLES Final Result * CT THORACIC SPINE W/O CONTRAST (10/03/2024 7:34 PM HOGSHEAD BUILDER) Anatomical Region Laterality Modality Spine N/A Computed Tomogra phy 10/03/2024 8:08 PM HOGSHEAD BUILDER Impressions 10/03/2024 8:10 PM HOGSHEAD BUILDER IMPRESSION: No acute abnormality identified. Narrative 10/03/2024 8:10 PM HOGSHEAD BUILDER EXAM DESCRIPTION: CT THORACIC SPINE W/O CONTRAST [...] Santiago Gasca M.D. AR: MAC Report ID: [id number] Reading Location: [id number] Procedure Note Santiago Gasca MD - 10/03/2024 [...] Santiago Gasca M.D. AR: MAC Report ID: [id number] Reading Location: [id number] IMPRESSION: No acute abnormality identified. Elizabeth Malloy MD IMG CT ORDERABLES Final Result * CT CERVICAL SPINE WO/ CONTRAST (10/03/2024 7:25 PM HOGSHEAD BUILDER) Anatomical Region Laterality Modality Spine N/A Computed Tomogra phy 10/03/2024 7:37 PM HOGSHEAD BUILDER Impressions 10/03/2024 7:39 PM HOGSHEAD BUILDER IMPRESSION: No acute findings of the cervical spine. Narrative 10/03/2024 7:39 PM HOGSHEAD BUILDER EXAM DESCRIPTION: CT CERVICAL SPINE WO/ CONTRAST [...] Quinten Villavicencio M.D. KR: OLIVIA Report ID: [id number] Reading Location: [id number] Procedure Note Quinten Villavicencio MD - 10/03/2024 [...] Quinten Villavicencio M.D. KR: OLIVIA Report ID: [id number] Reading Location: [id number] IMPRESSION: No acute findings of the cervical spine. us Elizabeth Malloy MD IMShree CT ORDERABLES Final Result * CT HEAD OR BRAIN WO CONTRAST (10/03/2024 7:24 PM HOGSHEAD BUILDER) Anatomical Region Laterality Modality Head N/A Computed Tomogra phy 10/03/2024 7:35 PM HOGSHEAD BUILDER Impressions 10/03/2024 7:37 PM HOGSHEAD BUILDER IMPRESSION: No acute intracranial findings. Narrative 10/03/2024 7:37 PM HOGSHEAD BUILDER EXAM DESCRIPTION: CT HEAD OR BRAIN WO [...] Electronically signed by Quinten Villavicencio M.D. KR: LOIVIA Report ID: [id number] Reading Location: [id number] Procedure Note Quinten Villavicencio MD - 10/03/2024 [...] Quinten Villavicencio M.D. KR: OLIVIA Report ID: [id number] Reading Location: [id number] IMPRESSION: No acute intracranial findings. us Elizabeth Malloy MD IMG CT ORDERABLES Final Result * POCT Urine HCG () (10/03/2024 6:48 PM HOGSHEAD BUILDER) Pathologist [facility] POC URINE Negative POC URINE CONTROL Forestry Adviser Pass Urine 10/03/2024 6:48 PM HOGSHEAD BUILDER Elizabeth Malloy MD POINT OF CARE TESTING (M ANUAL) Final Result * Hepatitis C Antibody (01/20/2024 1:26 PM CDT) Pathologist [facility] hepatitis C antibody 0.11 <1 S/CO 01/20/2024 10:45 PM CDT [facility] Comment: Signal/Cutoff ratio < 0.79 is Nondetected Signal/Cutoff ratio 0.80-0.99 is Grayzone Signal/Cutoff ratio > 0.99 is Detected Supplemental assays are recommended if signal/cutoff ratio is >/=1.00. Signal/cutoff ratio result >/= 5.00 is 97% predictive of positivity for recombinant immunoblot assay (RIBA) and will be reported to the [place] Department of Public Health as required. Blood Venipuncture / Unknown 01/20/2024 1:26 PM CDT 01/20/2024 1:39 PM CDT Nazanin Oconnell PAC CHEMISTRY ORDERABLES Final R esult [facility] [address] [place] [address], from Last 3 Months or Most Recently Relevant to Health Maintenance Insurance MEDICAID [place] Care Teams Cutter Operator Helper Relationship Specialty Start Date End Date Soledad Smith APRN, CNM [address] [place] [address] PCP - General Certified Nurse Extractor Operator 07/07/22
--- OUTSIDE RECORDS SUMMARY | 2024-11-07 16:48 | XMS_ITS | Referral Summary ---
Author Organization [facility] Address [address] [place] [address] Care Team Providers Care Road Sign Installer Name Role Phone Unavailable Primary Care Provider Unavailabl e Source Comments [facility],non-owned Affiliates and Associated Physician Practices is amultiple site organization consisting of ambulatory clinics and hospital sitesin [place], [place], [place]. This disclosure is being madepursuant to the Care Everywhere program and may not contain all information available regarding this patient. Last updated 18.[facility] Allergies No known active allergies Active Problems [...]
--- OUTSIDE RECORDS SUMMARY | 2024-11-07 16:48 | XMS_ITS | Clinical Summary ---
Author Organization [facility] Address [address] [place] [address] Phone Care Team Providers Care Development Coordinator Name Role Phone Unavailable Primary Care Provider [...] 67 07/16/2022 9:30 PM CDT Temperature 37 C (98.6 F) 07/16/2022 4:04 PM CDT Respiratory Rate 16 [...]
--- OUTSIDE RECORDS SUMMARY | 2024-11-07 16:48 | XMS_ITS | Clinical Summary ---
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 Gender Identity Not on file Sexual Orientation Not on file Obstetrics History Last Filed Vital Signs Vital Sign Reading Time Taken Comments Blood Pressure 110/60 03/23/2023 4:00 PM CDT Pulse 75 03/23/2023 4:00 PM CDT Temperature 36.9 C (98.5 F) 03/23/2023 4:00 PM CDT Respiratory Rate 19 03/23/2023 4:00 PM CDT [...] patient's age to complete this topic Insurance [facility] Member Subscriber Plan / Payer ( fective 2020-Present) Name:Oscar Elliott R Relation to Subscriber:Self Name:Oscar Elliott R Payer ID:[id number] (NAIC) Type:MEDICAID RISK OTHER Address: [place] [id number] Care Teams Animal Physiologist Relationship Specialty Start Date End Date No, Physician PCP - General 12/21/21
--- OUTSIDE RECORDS SUMMARY | 2024-11-07 16:48 | XMS_ITS | Referral Summary ---
Author Organization [facility] Address [address] [place] [address] Care Team Providers Care Wire Straightener Name Role Phone No, Physician Primary Care Provider [phone] Allergies Active Allergy Reactions Criticality Noted Date [...] on file Legal Sex Female 11:29 PM BRAZER FURNACE Gender Identity Not on file Sexual Orientation [...] Plan of Treatment Not on file Insurance [facility] Care Teams Wire Straightener Relationship Specialty Start Date End Date No, Physician PCP - General 12/21/21
--- OUTSIDE RECORDS SUMMARY | 2024-11-07 16:48 | XMS_ITS | Patient Health Summary ---
Author Organization [facility] [employer] Address [address] [place] [address] Care Team Providers Care Solid Plasterer Name Role Phone Unavailable Primary Care Provider Unavailabl e Note from [facility],non-owned Affiliates and Associated Physician Practices is amultiple site organization consisting of ambulatory clinics and hospital sitesin [place], [place], [place] and [place]. This disclosure is being madepursuant to the Care Everywhere program and may not contain all information available regarding this patient. Last updated 18.[facility] [employer] Allergies No known active allergies Active Problems [...] PM CDT Narrative 06/02/2021 3:16 PM CDT [facility] PHONE: FAX: Pat. Name: OSCAR SUERO Pat. No: [id number] Study Date: 06/02/2021 1:32pm , Age: 13 1995, 25 Pregnancies: 2, Para 0, Ab 1 Height: 62 in Weight: 144 lb LMP: Unknown GA by Base: 36w1d AIDEN: 06/29/2021 GA by US: 36w1d AIDEN: 06/29/2021 GA Selected: 36w1d (From [facility]) AIDEN: 06/29/2021 Referring MD: Levy Garvin MD Hospitality Services Manager: Colleen Coronado RDMS CPT4: 28811,98698 BMI: 26.34 Hist/Ind: Elevated MSAFP (7.63 MoM) Low-risk NIPT (female) Sibling with DeGeorge syndrome MEASUREMENTS & AGE GROWTH EVALUATION Measurement GA Range Srce %for GA Ratios ----- ---- ------- BPD 8.9 cm 36w1d (37t6h-68k6s) Hadl BPD 59% FL/BPD 0.79 (0.71 - 0.87) HC 32.4 cm 36w5d (64k8o-23c9k) Hadl HC 32% FL/AC 0.22 (0.20 - 0.24) AC 31.7 cm 35w4d (87s5l-63k2p) Hadl AC 42% HC/AC 1.02 (0.92 - 1.11) FL 7.1 cm 36w1d (02r6r-30q7p) Hadl FL 46% CI 0.78 (0.70 - 0.86) HL 6.2 cm 36w0d (63t0p-55d1c) Frank HL 46% GA for sonogram 36w1d (16x9d-80w8k) Weight Estimate: based on (BPD,HC,AC,FL) Avg Weight: 2800 gm (2391-3209gm) Had : 6lbs, 2oz Normal: 2844 gm (2133-3554gm) Had Wt% 45% for 36w1d Heart Rate: 148 bpm Amniotic Fluid Index: 25.1cm (07.7-24.8)* Q1: 7.1cm Q2: 4.7cm Q3: 5.7cm Q4: 7.6cm Biophysical Profile: 07/12 Breathin Tone: 2 NST: 2 Movement: 2 AFV: 2 EVAL, PLACENTA Presentation: cephalic Placenta: posterior Heart Rate: 148 bpm Amniotic Fluid Volume: increased CLINICAL SUMMARY Study Number: 8 A single fetus is seen in cephalic presentation. The measurements today are consistent with appropriate interval growth. The AIDEN is based on prior ultrasound examination. The amniotic fluid volume is increased. The FHR baseline was 145 bpm during today's reactive NST. The FHR variability was moderate and no significant decelerations were detected. IMPRESSION: Single, live, intrauterine at 36w1d Appropriate size and interval growth Amniotic fluid volume is at the upper limits of normal Biophysical profile: Reassuring RECOMMEND: Continue weekly testing through delivery Thank you for allowing us the opportunity to care for your patient. Compa Colbert MD <Electronic Signature> 06/02/2021 03:13pm R Raza Garvin MD [facility] ORDERABLES * SONOGRAM - COMPLETE (03/24/2021 1:35 PM CDT) Only the most recent of3 resultswithin the time period is included. Anatomical Region Laterality Modality Other 03/24/2021 1:35 PM CDT Narrative 03/24/2021 2:09 PM CDT [facility] PHONE: FAX: Pat. Name: OSCAR SUERO Lucas Pat. No: [id number] Study Date: 03/24/2021 1:35pm , Age: 13 1995, 25 Pregnancies: 2, Para 0, Ab 1 Height: 62 in Weight: 145 lb LMP: Unknown GA by Base: 26w1d AIDEN: 06/29/2021 GA by US: 25w2d AIDEN: 07/05/2021 GA Selected: 26w1d (From [facility]) AIDEN: 06/29/2021 Referring MD: Levy Garvin MD Hospitality Services Manager: Florin Blackwell [facility] CPT4: 69795 BMI: 26.52 Hist/Ind: Incomplete Anatomy Screen Elevated MSAFP (7.63 MoM) 1 in 10 risk for ONTD Low Risk NIPT (Female) Sibling with DeGeorge syndrome MEASUREMENTS & AGE GROWTH EVALUATION Measurement GA Range Srce %for GA Ratios ----- ---- ------- BPD 6.1 cm 24w5d (70d5r-43p1q) Hadl BPD 5% FL/BPD 0.79 (0.71 - 0.87) HC 23.5 cm 25w4d (26y6q-82t6i) Hadl HC 9% FL/AC 0.22 (0.20 - 0.24) AC 21.5 cm 26w0d (68n2t-35s6g) Hadl AC 34% HC/AC 1.09 (1.00 - 1.19) FL 4.8 cm 26w0d (99v4u-29v9t) Hadl FL 32% CI 0.71 (0.70 - 0.86) GA for sonogram 25w2d (08o1d-07q1b) Weight Estimate: based on (BPD,HC,AC,FL) Hadlock Weight: 862 gm (736-988gm) Hadloc : 1lbs, 14oz Normal: 933 gm (700-1166gm) Hadlo Wt% 28% for 26w1d Heart Rate: 151 bpm Amniotic Fluid Index: 04.7cm (Deepest Pocket) EVAL, PLACENTA Presentation: breech Umbilical Cord: 3 Vessels Placenta: posterior Heart Rate: 151 bpm Amniotic Fluid Volume: normal Anatomy!Normal!Abnormal!Suboptimal!Prev. Seen!Comments Cranium ! ! ! ! x ! Mdl (CSP/Thal! ! ! ! x ! Ventricles ! ! ! ! x ! Choroid Plexu! ! ! ! x ! Cerebellum ! ! ! ! x ! Cerebellar Ve! ! ! ! x ! Cisterna M. ! ! ! ! x ! Nuchal Fold ! ! ! ! x ! Orbits ! ! ! ! x ! Profile ! x ! ! ! x ! Nasal Bone ! ! ! ! x ! Lip ! ! ! ! x ! Maxilla ! ! ! ! x ! Mandible ! ! ! ! x ! Neck ! ! ! ! x ! Spine ! ! ! ! x ! Lungs ! ! ! ! x ! 4 Chamber Hea! ! ! ! x ! LVOT ! ! ! ! x ! RVOT ! ! ! ! x ! 3 Vessel View! ! ! ! x ! 3 Vessel Trac! ! ! ! x ! Cross-over ! ! ! ! x ! Ductal Arch ! ! ! ! x ! Aortic Arch ! ! ! ! x ! Caval View ! ! ! ! x ! Situs ! ! ! ! x ! Diaphragm ! ! ! ! x ! Stomach ! x ! ! ! x ! Liver ! ! ! ! x ! Bowel ! ! ! ! x ! Kidneys ! ! ! ! x ! Bladder ! x ! ! ! x ! 3 Vessel Cord! ! ! ! x ! Cord In! ! ! ! x ! Upper Extremi! ! ! ! x ! Hands ! ! ! ! x ! Lower Extremi! ! ! ! x ! Feet ! ! ! ! x ! External Shanika! ! ! ! x ! Placental Cor! ! ! ! x ! CLINICAL SUMMARY Study Number: 3 A single fetus is identified in breech presentation. The measurements today are consistent with appropriate growth compared to previous examination. The AIDEN selected is based on a prior ultrasound examination. The amniotic fluid volume appears normal. The placenta is posterior. No abnormalities of the profile are detected. IMPRESSION: Live, love IUP at 26w1d size consistent with established AIDEN No sonographic signs of abnormality Normal amniotic fluid volume RECOMMEND: Repeat ultrasound at about 32 weeks to screen for IUGR Begin weekly testing at that time (BPP/NST) Thank you for allowing us the opportunity to care for your patient. Nury Kat MD <Electronic Signature> 03/24/2021 02:07pm Nury Kat MD [facility] ORDERABLES
--- OUTSIDE RECORDS SUMMARY | 2024-11-07 16:48 | XMS_ITS | Clinical Summary ---
Author Organization [facility] Address [address] [place] [address] Care Team Providers Care Party Plan Sales Unit Advisor Name Role Phone Unavailable Primary Care Provider Unavailabl e Source Comments [facility],non-owned Affiliates and Associated Physician Practices is amultiple site organization consisting of ambulatory clinics and hospital sitesin [place], [place], [place] and [place]. This disclosure is being madepursuant to the Care Everywhere program and may not contain all information available regarding this patient. Last updated 18.[facility] Allergies No known active allergies Active Problems [...]
[2024-11-07 18:24] LABS: Beta HCG Quantitative 688.95 mIU/ML
== END 2024-11-07 16:44 | disposition home or self-care (01) ==
LOC: ANHLAB 16:46
PROVIDERS: Visit Provider Obstetrics & Gynecology
DX: O20.0 Threatened abortion (principal); Z3A.00 Weeks of gestation of pregnancy not specified
CPT/HCPCS: 36415; 84702

== ENCOUNTER 2024-11-09 16:25 | Outpatient (CLI) | payer OTHER, MEDICAID, SELFPAY ==
--- OUTSIDE RECORDS SUMMARY | 2024-11-09 16:27 | XMS_ITS | Clinical Summary ---
Author Organization [facility] Address [address] [place] [address] Care Team Providers Care Bridal Gown Fitter Name Role Phone No, Physician Primary Care Provider [phone] Allergies Active Allergy Reactions Criticality Noted Date [...] on file Legal Sex Female 11:29 PM CURRICULUM AND ASSESSMENT DIRECTOR Gender Identity Not on file Sexual Orientation [...] patient's age to complete this topic Insurance [facility] Member Subscriber Plan / Payer ( fective 2020-Present) Name:Oscar Elliott R Relation to Subscriber:Self Name:Oscar Elliott R Payer ID:[id number] (NAIC) Type:MEDICAID RISK OTHER Address: [place] [id number] Care Teams Bridal Gown Fitter Relationship Specialty Start Date End Date No, Physician PCP - General 12/21/21
--- OUTSIDE RECORDS SUMMARY | 2024-11-09 16:27 | XMS_ITS | Referral Summary ---
Author Organization [facility] Address [address] [place] [address] Care Team Providers Care Bakery Worker Name Role Phone Unavailable Primary Care Provider Unavailabl e Source Comments [facility],non-owned Affiliates and Associated Physician Practices is amultiple site organization consisting of ambulatory clinics and hospital sitesin [place], [place], [place] and [place]. This disclosure is being madepursuant to the Care Everywhere program and may not contain all information available regarding this patient. Last updated 18.[facility] Allergies No known active allergies Active Problems [...]
--- OUTSIDE RECORDS SUMMARY | 2024-11-09 16:27 | XMS_ITS | Referral Summary ---
Author Organization [facility] Address [address] [place] [address] Care Team Providers Care Technical Solution Architect Name Role Phone No, Physician Primary Care Provider [phone] Allergies Active Allergy Reactions Criticality Noted Date [...] on file Legal Sex Female 11:29 PM CLERICAL SUPPORT Gender Identity Not on file Sexual Orientation [...] Plan of Treatment Not on file Insurance [facility] Care Teams Technical Solution Architect Relationship Specialty Start Date End Date No, Physician PCP - General 12/21/21
--- OUTSIDE RECORDS SUMMARY | 2024-11-09 16:27 | XMS_ITS | Clinical Summary ---
Author Organization [facility] Address [address] [place] [address] Care Team Providers Care Music Journalist Name Role Phone Unavailable Primary Care Provider Unavailabl e Source Comments [facility],non-owned Affiliates and Associated Physician Practices is amultiple site organization consisting of ambulatory clinics and hospital sitesin [place], [place], [place] and [place]. This disclosure is being madepursuant to the Care Everywhere program and may not contain all information available regarding this patient. Last updated 18.[facility] Allergies No known active allergies Active Problems [...]
--- OUTSIDE RECORDS SUMMARY | 2024-11-09 16:27 | XMS_ITS | Clinical Summary ---
Author Organization [facility] Address [address] [place] [address] Phone Care Team Providers Care Boarder Steam Name Role Phone Unavailable Primary Care Provider [...]
--- OUTSIDE RECORDS SUMMARY | 2024-11-09 16:27 | XMS_ITS | Clinical Summary ---
Author Organization [facility] Address [address] [place] [address] Phone Care Team Providers Care Cardroom Hand Name Role Phone Soledad Smith Sakshi VUONG [...] Department Care Team Description 10/03/2024 6:35 PM PEARL RESTORER - 10/03/2024 8:35 PM PEARL RESTORER Emergency [facility] Emergency [address] [place] [address] Nazanin Oconnell PAC Head injury [...] Comments Blood Pressure 112/64 10/03/2024 8:33 PM PEARL RESTORER Pulse 80 10/03/2024 8:33 PM PEARL RESTORER Temperature 36.6 C (97.9 F) 10/03/2024 8:33 PM PEARL RESTORER Respiratory Rate 18 10/03/2024 8:33 PM PEARL RESTORER Oxygen Saturation 100% 10/03/2024 8:33 PM PEARL RESTORER Inhaled Oxygen Concentration - - Weight 73 kg (161 lb) 10/03/2024 5:32 PM PEARL RESTORER Height 160 cm (5' 3 ) 10/03/2024 5:32 PM PEARL RESTORER Body Mass Index 28.52 10/03/2024 5:32 PM PEARL RESTORER Plan of Treatment Health Maintenance Due Date [...] CONTRAST Stat with Interpretation 10/03/2024 7:[address] THORACIC SPINE W/O CONTRAST Stat with Interpretation 10/03/2024 7:[address] CERVICAL SPINE WO/ CONTRAST Stat with Interpretation 10/03/2024 7:[address] HEAD OR BRAIN WO CONTRAST Stat with Interpretation 10/03/2024 7:24 PM PEARL RESTORER POCT URINE HCG () STAT 10/03/2024 6:48 PM PEARL RESTORER HEPATITIS C ANTIBODY STAT 01/20/2024 1:26 PM CDT from Last 3 Months or Most Recently Relevant to Health Maintenance Results * CT LUMBAR SPINE WO CONTRAST (10/03/2024 7:48 PM PEARL RESTORER) Anatomical Region Laterality Modality Spine N/A Computed Tomogra phy 10/03/2024 8:07 PM PEARL RESTORER Impressions 10/03/2024 8:09 PM PEARL RESTORER IMPRESSION: No acute abnormality identified. Narrative 10/03/2024 8:09 PM PEARL RESTORER EXAM DESCRIPTION: CT LUMBAR SPINE WO CONTRAST [...] Santiago Gasca M.D. AR: MAC Report ID: [id number] Reading Location: [id number] Procedure Note Santiago Gasca MD - 10/03/2024 [...] Santiago Gasca M.D. AR: MAC Report ID: [id number] Reading Location: [id number] IMPRESSION: No acute abnormality identified. Elizabeth Malloy MD IM CT ORDERABLES Final Result * CT THORACIC SPINE W/O CONTRAST (10/03/2024 7:34 PM PEARL RESTORER) Anatomical Region Laterality Modality Spine N/A Computed Tomogra phy 10/03/2024 8:08 PM PEARL RESTORER Impressions 10/03/2024 8:10 PM PEARL RESTORER IMPRESSION: No acute abnormality identified. Narrative 10/03/2024 8:10 PM PEARL RESTORER EXAM DESCRIPTION: CT THORACIC SPINE W/O CONTRAST [...] Santiago Gasca M.D. AR: MAC Report ID: [id number] Reading Location: [id number] Procedure Note Santiago Gasac MD - 10/03/2024 EXAM DESCRIPTION: CT THORACIC [...] Santiago Gasca M.D. AR: MAC Report ID: [id number] Reading Location: [id number] IMPRESSION: No acute abnormality identified. Elizabeth Malloy MD IMG CT ORDERABLES Final Result * CT CERVICAL SPINE WO/ CONTRAST (10/03/2024 7:25 PM PEARL RESTORER) Anatomical Region Laterality Modality Spine N/A Computed Tomogra phy 10/03/2024 7:37 PM PEARL RESTORER Impressions 10/03/2024 7:39 PM PEARL RESTORER IMPRESSION: No acute findings of the cervical spine. Narrative 10/03/2024 7:39 PM PEARL RESTORER EXAM DESCRIPTION: CT CERVICAL SPINE WO/ CONTRAST [...] Quinten Villavicencio M.D. KR: OLIVIA Report ID: [id number] Reading Location: [id number] Procedure Note Quinten Villavicencio MD - 10/03/2024 [...] Quinten Villavicencio M.D. KR: OLIVIA Report ID: [id number] Reading Location: [id number] IMPRESSION: No acute findings of the cervical spine. us Elizabeth Malloy MD IMShree CT ORDERABLES Final Result * CT HEAD OR BRAIN WO CONTRAST (10/03/2024 7:24 PM PEARL RESTORER) Anatomical Region Laterality Modality Head N/A Computed Tomogra phy 10/03/2024 7:35 PM PEARL RESTORER Impressions 10/03/2024 7:37 PM PEARL RESTORER IMPRESSION: No acute intracranial findings. Narrative 10/03/2024 7:37 PM PEARL RESTORER EXAM DESCRIPTION: CT HEAD OR BRAIN WO [...] Quinten Villavicencio M.D. KR: OLIVIA Report ID: [id number] Reading Location: [id number] Procedure Note Quinten Villavicencio MD - 10/03/2024 [...] Quinten Villavicencio M.D. KR: OLIVIA Report ID: [id number] Reading Location: [id number] IMPRESSION: No acute intracranial findings. us Elizabeth Malloy MD IMG CT ORDERABLES Final Result * POCT Urine HCG () (10/03/2024 6:48 PM PEARL RESTORER) Pathologist [facility] POC URINE Negative POC URINE CONTROL Head [place] Urine 10/03/2024 6:48 PM PEARL RESTORER Elizabeth Malloy MD POINT OF CARE TESTING (M ANUAL) Final Result * Hepatitis C Antibody (01/20/2024 1:26 PM CDT) Pathologist [facility] hepatitis C antibody 0.11 <1 S/CO 01/20/2024 10:45 PM CDT [facility] Comment: Signal/Cutoff ratio < 0.79 is Nondetected [...] Oconnell PAC CHEMISTRY ORDERABLES Final R esult [facility] [address] [place] [address], from Last 3 Months or Most Recently Relevant to Health Maintenance Insurance MEDICAID [place] Care Teams Cardroom Hand Relationship Specialty Start Date End Date Soledad Smith APRN, CNM [address] [place] [address] PCP - General Certified Nurse Contracts Administrator 07/07/22
--- OUTSIDE RECORDS SUMMARY | 2024-11-09 16:27 | XMS_ITS | Patient Health Summary ---
Author Organization [facility] Address [address] [place] [address] Care Team Providers Care General Farmer Name Role Phone Unavailable Primary Care Provider Unavailabl e Note from [facility],non-owned Affiliates and Associated Physician Practices is amultiple site organization consisting of ambulatory clinics and hospital sitesin [place], [place], [place] and [place]. This disclosure is being madepursuant to the Care Everywhere program and may not contain all information available regarding this patient. Last updated 18.[facility] Allergies No known active allergies Active Problems [...] PM CDT Narrative 06/02/2021 3:16 PM CDT [facility] PHONE: FAX: Pat. Name: OSCAR SUERO Pat. No: [id number] Study Date: 06/02/2021 1:32pm , Age: 13 1995, 25 Pregnancies: 2, Para 0, Ab 1 Height: 62 in Weight: 144 lb LMP: Unknown GA by Base: 36w1d AIDEN: 06/29/2021 GA by US: 36w1d AIDEN: 06/29/2021 GA Selected: 36w1d ([facility]) AIDEN: 06/29/2021 Referring MD: Levy Garvin MD Blood Bank Custodian: Colleen Coronado RDMS CPT4: 79004,14655 BMI: 26.34 Hist/Ind: Elevated MSAFP (7.63 MoM) Low-risk NIPT (female) Sibling with DeGeorge syndrome MEASUREMENTS & AGE GROWTH EVALUATION Measurement GA Range Srce %for GA Ratios ----- ---- ------- BPD 8.9 cm 36w1d (67h9g-12y4j) Hadl BPD 59% FL/BPD 0.79 (0.71 - 0.87) HC 32.4 cm 36w5d (91t2u-86p3t) Hadl HC 32% FL/AC 0.22 (0.20 - 0.24) AC 31.7 cm 35w4d (33u0j-55c5h) Hadl AC 42% HC/AC 1.02 (0.92 - 1.11) FL 7.1 cm 36w1d (52o2l-71t5v) Hadl FL 46% CI 0.78 (0.70 - 0.86) HL 6.2 cm 36w0d (56q6a-53a1h) Frank HL 46% GA for sonogram 36w1d (74x3y-47w2m) Weight Estimate: based on (BPD,HC,AC,FL) Avg Weight: [...] Signature> 06/02/2021 03:13pm R Raza Garvin MD [facility] ORDERABLES * SONOGRAM - COMPLETE (03/24/2021 1:35 PM CDT) Only the most recent of3 resultswithin the time period is included. Anatomical Region Laterality Modality Other 03/24/2021 1:35 PM CDT Narrative 03/24/2021 2:09 PM CDT [facility] PHONE: FAX: Pat. Name: OSCAR SUERO Lucas Pat. No: [id number] Study Date: 03/24/2021 1:35pm , Age: 13 1995, 25 Pregnancies: 2, Para 0, Ab 1 Height: 62 in Weight: 145 lb LMP: Unknown GA by Base: 26w1d AIDEN: 06/29/2021 GA by US: 25w2d AIDEN: 07/05/2021 GA Selected: 26w1d ([facility]) AIDEN: 06/29/2021 Referring MD: Levy Garvin MD Blood Bank Custodian: Florin Blackwell [facility] CPT4: 63089 BMI: 26.52 Hist/Ind: Incomplete Anatomy Screen Elevated MSAFP (7.63 MoM) 1 in 10 risk for ONTD Low Risk NIPT (Female) Sibling with DeGeorge syndrome MEASUREMENTS & AGE GROWTH EVALUATION Measurement GA Range Srce %for GA Ratios ----- ---- ------- BPD 6.1 cm 24w5d (68l0y-58e7w) Hadl BPD 5% FL/BPD 0.79 (0.71 - 0.87) HC 23.5 cm 25w4d (17p6f-54m0h) Hadl HC 9% FL/AC 0.22 (0.20 - 0.24) AC 21.5 cm 26w0d (36w0u-96x0n) Hadl AC 34% HC/AC 1.09 (1.00 - 1.19) FL 4.8 cm 26w0d (59x7t-08w7m) Hadl FL 32% CI 0.71 (0.70 - 0.86) GA for sonogram 25w2d (08m1y-88i5z) Weight Estimate: based on (BPD,HC,AC,FL) [place] Weight: [...] <Electronic Signature> 03/24/2021 02:07pm Nury Kat MD [facility] ORDERABLES
== END 2024-11-09 16:26 | disposition home or self-care (01) ==
LOC: ANHLAB 16:26
PROVIDERS: Visit Provider Obstetrics & Gynecology
DX: O20.0 Threatened abortion (principal)
CPT/HCPCS: 36415; 84702

== ENCOUNTER 2025-06-29 14:48 | Observation (INO) | payer MEDICAID, SELFPAY ==
--- NOTE | ~2025-06-29 | US_ITS ---
EXAMINATION: US OB limited, 06/29/2025 16:24 CDT HISTORY: adb pain; check cervical length Comparison: None Technique: Lezama-scale and color Doppler images were obtained. Findings: The cervix measures 4.2 cm, there is no change with fundal pressure. No funneling is identified. IMPRESSION: Cervical length detailed above Reviewed, dictated and finalized at location P.
[2025-06-29 15:08] VITALS: BP 105/60; PULSE 83
[2025-06-29 15:15] VITALS: BP 105/56; PULSE 80
[2025-06-29 15:17] VITALS: TEMP 36.6
[2025-06-29 15:30] VITALS: BP 100/55; PULSE 76
[2025-06-29 15:42] LABS: Add Urine Microscopic? YES; Appearance Urine Cloudy (Clear); Glucose Urine UA Negative (Negative); Leukocyte Esterase Ur Trace LEU/UL (Negative); Need Manual Microscopic Reviewed; Nitrate Urine Negative (Negative); Non Pathogenic Casts 0-2; Specific Grav Ur 1.011 (1.001-1.035)
[2025-06-29 15:45] VITALS: BP 94/52; PULSE 72
[2025-06-29 16:00] VITALS: BP 89/48; PULSE 73
--- NOTE | 2025-06-29 16:21 | OBADM ---
This patient, sOcar Elliott, admitted to the OB room OB Post 116 for observation. Patient/family oriented to hospital policies and general routines including ID bracelet, bed and alarms, visiting hours, pain management, procedures, bathroom and other care routines, personal items, smoking policy, room service/diet, and visiting hours. Patient/Family are encouraged to report perceived risks to care and to ask questions if they do not understand what they are told or what they should do.
--- NOTE | 2025-06-29 16:47 | PC.NURSE ---
1630--cervical length 4.25, no funneling noted.
--- NOTE | 2025-07-11 14:10 | PM.OBTRLD ---
OB - Triage/Final Diagnosis Visit Information Date of evaluation: 06/29/25 Reason for evaluation: other (abd pain) Comments/Additional reasons for admission: I have assessed the risk for this patient, Oscar Lucas Elliott, and determined that she would benefit from observation care. Evaluation Laboratory results: Laboratory Tests 06/29/25 15:01 Urine Color Yellow Urine Appearance Cloudy H Urine pH 7.5 Ur Specific [place] 1.011 Urine Protein Negative Urine Glucose (UA) Negative Urine Ketones Negative Ur Blood (Man) Negative Urine Nitrate Negative Urine Bilirubin Negative Urine Urobilinogen 0.2 Add Ur Microanalysis Reviewed Leukocyte Esterase Rfl Trace H Urine RBC 0-2 Urine WBC 0-5 Ur Squamous Epith Cells Moderate Urine Bacteria 1+ H Urine Casts 0-2
== END 2025-06-29 16:35 | disposition home or self-care (01) ==
PROVIDERS: Advanced Practice Midwife; Admitting Provider Obstetrics & Gynecology; Visit Provider Obstetrics & Gynecology
DX: O26.892 Other specified pregnancy related conditions, second trimester (principal); Z3A.24 24 weeks gestation of pregnancy; R10.9 Unspecified abdominal pain
CPT/HCPCS: 76815; 81001; G0378; G0379

== ENCOUNTER 2025-08-20 15:13 | Outpatient (RCR) | payer OTHER, SELFPAY | END 2025-10-02 11:58 | disposition home or self-care (01) | LOC: ANHDMC 15:13 | PROVIDERS: Visit Provider Obstetrics & Gynecology | DX: O24.419 Gestational diabetes mellitus in pregnancy, unspecified control (principal); Z3A.00 Weeks of gestation of pregnancy not specified; Z71.89 Other specified counseling | CPT/HCPCS: G0108 ==

== ENCOUNTER 2025-09-19 22:21 | Observation (INO) | payer MEDICAID, SELFPAY ==
--- OUTSIDE RECORDS SUMMARY | 2025-09-19 23:54 | XMS_ITS | Clinical Summary ---
Author Organization [facility] Address [address] [place] [address] Phone Care Team Providers Care Admitting Office Escort Name Role Phone Unavailable Primary Care Provider [...] 4:04 PM CDT Height 157.5 cm (5' 2) 07/16/2022 4:04 PM CDT Body Mass Index 23.78 07/16/2022 4:04 PM CDT Plan of Treatment Health Maintenance Due Date Last Done Comments CERVICAL CANCER SCREENING 2017 HPV/Cotest (21-29) 2017 PAP SMEAR 2017 DTAP/TDAP/TD VACCINES (7 - T d or Tdap) 06/19/2019 06/19/2009, 07/11/2002, 03/19/1998, Additional history exists INFLUENZA VACCINE (#1) 2025 RSV VACCINE (60+ or ) (1 - 1-dose 75+ series) 2071 HEPATITIS B VACCINES Completed 08/15/1997, 1996, 1996 HPV VACCINES Completed 05/14/2011, 06/03, 06/19/2007 Insurance [place]
--- OUTSIDE RECORDS SUMMARY | 2025-09-19 23:54 | XMS_ITS | Continuity of Care Document ---
Author Organization [facility] [place] Address [address] [place] [address] Assessment No assessment recorded. Plan of Treatment Reminders Order Date Submit Date Provider Last Modified By Organization Details Last Modified Time Details Appointments OB ROUTINE 2024 01:30P M JERRY LEVI MD Not available Not available Not available SURG MISC 2024 01:30P Valerie LEVI MD Not available Not available Not available Lab None recorded . Referral None recorded . Procedures None recorded . Surgeries None recorded . Imaging None recorded . Medication Orders None recorded . Patient TargetsNo targets recorded. Patient InstructionsNo instructions recorded. Reason for Referral None Reported. Results Created Date Observation Date Name Description Value Unit Range Abnormal Flag Note LastModifiedBy Organization Detail LastModifiedTime 04/09/2004/09/2025 [UNIT Y] ANEUP LOIDY NIPT fraction 8.7% normal Not Available [facility] [address], [place], [address], 04/09/2025 23:26:44 04/09/20 25 04/09/2025 [UNIT Y] ANEUP LOIDY NIPT sex chromosome aneuploidy NOT DETECT ED normal Not Available [facility] [address], [place], [address], 04/09/2025 23:26:44 04/09/20 25 04/09/2025 [UNIT Y] ANEUP LOIDY NIPT monosomy X LOW RISK <1 in 10,000 normal Not Available [facility] [address], [place], [address], 04/09/2025 23:26:44 04/09/20 25 04/09/2025 [UNIT Y] ANEUP LOIDY NIPT trisomy 13 LOW RISK <1 in 10,000 normal Not Available [facility] [address], [place], [address], 04/09/2025 23:26:44 04/09/20 25 04/09/2025 [UNIT Y] ANEUP LOIDY NIPT trisomy 18 LOW RISK <1 in 10,000 normal Not Available [facility] [address], [place], [address], 04/09/2025 23:26:44 04/09/20 25 04/09/2025 [UNIT Y] ANEUP LOIDY NIPT trisomy 21 LOW RISK <1 in 10,000 normal Not Available [facility] [address], [place], [address], 04/09/2025 23:26:44 04/09/20 25 04/09/2025 [UNIT Y] ANEUP LOIDY NIPT sex FEMALE normal Not Available [facility] [address], [place], [address], 04/09/2025 23:26:44 04/09/20 25 04/09/2025 [UNIT Y] ANEUP LOIDY NIPT gestation SINGLE TON normal Not Available [facility] [address], [place], [address], 04/09/2025 23:26:44 04/09/20 25 04/09/2025 [UNIT Y] ANEUP LOIDY NIPT for detailed report, see pdf See PDF normal Not Available [facility] [address], [place], [address], 04/09/2025 23:26:44 04/15/20 25 04/15/2025 [UNIT Y] JOVANY ER SCREE N fraction 5.4% normal Not Available [facility] [address], [place], [address], 04/15/2025 23:58:47 04/15/20 25 04/15/2025 [UNIT Y] JOVANY Frey sickle cell disease/beta -thalassemia /hemoglobino pathies nipt result LOW RISK < 1 in 3200 normal Not Available [facility] [address], [place], [address], 04/15/2025 23:58:47 04/15/20 25 04/15/2025 [UNIT Y] JOVANY Frey sickle cell disease/beta -thalassemia /hemoglobino pathies carrier screen POSITI VE Sickle cell: c.20A> T (p.Glu 7Val) abnormal Not Available [facility] [address], [place], [address], 04/15/2025 23:58:47 04/15/20 25 04/15/2025 [UNIT Y] JOVANY Frey alpha-thalas semia carrier screen NEGATI VE normal Not Available [facility] [address], [place], [address], 04/15/2025 23:58:47 04/15/20 25 04/15/2025 [UNIT Y] JOVANY Frey cystic fibrosis carrier screen NEGATI VE normal Not Available [facility] [address], [place], [address], 04/15/2025 23:58:47 04/15/20 25 04/15/2025 [UNIT Y] JOVANY Frey spinal muscular atrophy carrier screen NEGATI VE 3 SMN1 copies , SNP presen t normal Not Available [facility] [address], [place], [address], 04/15/2025 23:58:47 04/15/20 25 04/15/2025 [UNIT Y] JOVANY Frey for detailed report, see pdf See PDF normal Not Available [facility] [address], [place], [address], 04/15/2025 23:58:47 04/02/2004/02/2025 HIV 1/2 ANTIG EN/AN TIBOD Y, REFLE X CONFI RMATI ON HIV antigen/anti body Nonrea ctive nonrea ctive HIV-1 antig en and HIV-1 /HIV- 2 antib odies were not detec nhan. No labor atory evide nce of HIV infec tion. Not Available [facility] (Lab) [address] [facility], [place], [address], 04/03/2025 12:34:58 04/02/2004/02/2025 HEPAT ITIS B SURFA CE ANTIG EN hepatitis B surface antigen Non-re active non-re active This assay was perfo rmed using [employer] ratio n reage nts and test kits. Value s obtai tunde with other assay metho ds or kits canno t be used inter baez eably . Not Available [facility] (Lab) [address] [facility], [place], [address], 04/03/2025 12:34:58 04/02/2004/02/2025 CBC W/DIF F WBC 10.3 10'3/ uL 3.5-10 .5 Not Available [facility] (Lab) [address] [facility], [place], [address], 04/03/2025 12:34:59 04/02/20 25 04/02/2025 CBC W/DIF F RBC 3.84 10'6/ uL (based on docume nted legal sex) 3.80-5 .20 Not Available [facility] (Lab) [address] [facility], [place], [address], 04/03/2025 12:34:59 04/02/20 25 04/02/2025 CBC W/DIF F HGB 11.8 g/dL (based on docume nted legal sex) 11.6-1 5.4 Not Available [facility] (Lab) [address] [facility], [place], [address], 04/03/2025 12:34:59 04/02/20 25 04/02/2025 CBC W/DIF F HCT 34.1 % (based on docume nted legal sex) 34.0-4 5.0 Not Available [facility] (Lab) [address] [facility], [place], [address], 04/03/2025 12:34:59 04/02/20 25 04/02/2025 CBC W/DIF F MCV 88.8 fL 80.0-9 9.0 Not Available [facility] (Lab) [address] [facility], [place], [address], 04/03/2025 12:34:59 04/02/20 25 04/02/2025 CBC W/DIF F MCH 30.7 pg 27.0-3 4.0 Not Available [facility] (Lab) [address] [facility], [place], [address], 04/03/2025 12:34:59 04/02/20 25 04/02/2025 CBC W/DIF F MCHC 34.6 g/dL 32.0-3 5.5 Not Available [facility] (Lab) [address] [facility], [place], [address], 04/03/2025 12:34:59 04/02/20 25 04/02/2025 CBC W/DIF F RDW 12.5 % 11.0-1 5.0 Not Available [facility] (Lab) [address] [facility], [place], [address], 04/03/2025 12:34:59 04/02/20 25 04/02/2025 CBC W/DIF F plt 267 10'3/ uL 150-40 0 Not Available [facility] (Lab) [address] [facility], [place], [address], 04/03/2025 12:34:59 04/02/20 25 04/02/2025 CBC W/DIF F MPV 10.2 fL 8.8-12 .1 Not Available [facility] (Lab) [address] [facility], [place], [address], 04/03/2025 12:34:59 04/02/20 25 04/02/2025 CBC W/DIF F NRBC's 0.0 % 0.0 Not Available [facility] (Lab) [address] [facility], [place], [address], 04/03/2025 12:34:59 04/02/20 25 04/02/2025 CBC W/DIF F absolute NRBCs 0.0 10'3/ uL no refere nce range establ ished Not Available [facility] (Lab) [address] [facility], [place], [address], 04/03/2025 12:34:59 04/02/20 25 04/02/2025 CBC W/DIF F neutrophils 73.5 % 34.0-7 3.0 high Not Available [facility] (Lab) [address] [facility], [place], [address], 04/03/2025 12:34:59 04/02/20 25 04/02/2025 CBC W/DIF F lymphocytes 18.6 % 15.0-5 0.0 Not Available [facility] (Lab) [address] [facility], [place], [address], 04/03/2025 12:34:59 04/02/20 25 04/02/2025 CBC W/DIF F monocytes 6.1 % 1.0-15 .0 Not Available [facility] (Lab) [address] [facility], [place], [address], 04/03/2025 12:34:59 04/02/2004/02/2025 CBC W/DIF F eosinophils 1.3 % 0.0-8. 0 Not Available [facility] (Lab) [address] [facility], [place], [address], 04/03/2025 12:34:59 04/02/20 25 04/02/2025 CBC W/DIF F basophils 0.2 % 0.0-2. 0 Not Available [facility] (Lab) [address], [place], [address], 04/03/2025 12:34:59 04/02/20 25 04/02/2025 CBC W/DIF F immature granulocytes 0.3 % no define d refere nce range Immat ure Granu locyt es (IG) repre sents autom ated enume ratio n of Metam yeloc ytes, Myelo cytes and Promy elocy smiley when IG is < 5%. Blast s are not inclu ded in IG and repor nhan separ ately if prese nt. Not Available [facility] (Lab) [address], [place], [address], 04/03/2025 12:34:59 04/02/20 25 04/02/2025 CBC W/DIF F absolute neutrophils 7.6 10'3/ uL 1.5-8. 0 Not Available [facility] (Lab) [address], [place], [address], 04/03/2025 12:34:59 04/02/20 25 04/02/2025 CBC W/DIF F absolute lymphocytes 1.9 10'3/ uL 1.0-4. 0 Not Available [facility] (Lab) [address], [place], [address], 04/03/2025 12:34:59 04/02/20 25 04/02/2025 CBC W/DIF F absolute monocytes 0.6 10'3/ uL 0.2-1. 0 Not Available [facility] (Lab) [address], [place], [address], 04/03/2025 12:34:59 04/02/20 25 04/02/2025 CBC W/DIF F absolute eosinophils 0.1 10'3/ uL 0.0-0. 6 Not Available [facility] (Lab) [address], [place], [address], 04/03/2025 12:34:59 04/02/20 25 04/02/2025 CBC W/DIF F absolute basophils 0.0 10'3/ uL 0.0-0. 3 Not Available [facility] (Lab) [address], [place], [address], 04/03/2025 12:34:59 04/02/20 25 04/02/2025 CBC W/DIF F absolute immature granulocytes 0.0 10'3/ uL 0.00-0 .10 Refer ence range s for nonbi nary/ inter sex or unspe cifie d gende r patie nts have not been estab lishe d. Pleas e refer to the follo wing table for range s estab lishe d for cisge nder patie nts and evalu ate in the clini fady rajan xt of the indiv idual patie nt: https ://la bhand book. nm.or g/gen derx Not Available [facility] (Lab) [address], [place], [address], 04/03/2025 12:34:59 04/02/20 25 04/02/2025 HEPAT ITIS C ANTIB CHER SCREE N, REFLE X TO CONFI RMATI ON hepatitis C antibody Non-re active non-re active Antib odies to HCV Not Detec nhan, does not exclu de the possi bilit y of expos ure to HCV. Not Available [facility] (Lab) [address], [place], [address], 04/03/2025 12:34:59 04/02/20 25 04/02/2025 RUBEL LA IGG ANTIB CHER, QUANT rubella antibodies, IgG Reacti ve reacti ve Not Available [facility] (Lab) [address] [place], [address], 04/03/2025 12:34:59 04/02/20 25 04/02/2025 RUBEL LA IGG ANTIB CHER, QUANT rubella antibodies, IgG quant 20.7 IU/mL >=10 Non-r eacti ve (Non- Immun e) <10 IU/mL React nicholas (Immu ne) > or = 10 IU/mL Not Available [facility] (Lab) [address] [facility], [place], [address], 04/03/2025 12:34:59 04/02/20 25 04/02/2025 TYPE/ RH/SC REEN ABO/Rh type A POS Not Available [facility] (Lab) [address] [facility], [place], [address], 04/03/2025 12:35:00 04/02/20 25 04/02/2025 TYPE/ RH/SC REEN antibody screen NEG Not Available [facility] (Lab) [address] [facility], [place], [address], 04/03/2025 12:35:00 04/02/20 25 04/02/2025 TYPE/ RH/SC REEN exp date 2024 23:59 Not Available [facility] (Lab) [address] [facility], [place], [address], 04/03/2025 12:35:00 04/02/20 25 04/02/2025 HEMOG LOBIN A1C hemoglobin A1C 4.5 % 4.0-5. 6 The Ameri can [employer] smiley [employer] iatio n recom mends that a prima ry goal of thera py nissa javier be a HBA1C of < 7% and that physi cians shoul d reeva luate the treat ment regim en in patie nts with HBA1C value s consi stent ly > 8%. <5.7% Jerica l 5.7 - 6.4% Incre ased risk for diabe smiley >=6.5 % Diagn ostic of diabe smiley <7.0% Goal of thera py >8.0% Actio n sugge sted Not Available [facility] (Lab) [address] [facility], [place], [address], 04/03/2025 12:35:00 04/02/20 25 04/02/2025 RPR SCREE N, REFLE X TITER /CONF IRMAT ION RPR qualitative Nonrea ctive nonrea ctive Not Available [facility] (Lab) [address] [facility], [place], [address], 04/03/2025 12:35:01 06/04/2006/04/2025 CT/GC AND TRICH OMONA S VAGIN DARÍO (RRNA ), URINE chlamydia trachomatis, PCR Negati ve negati ve Not Available [facility] (Lab) [address] [facility], [place], [address], 06/06/2025 00:50:21 06/04/2006/04/2025 CT/GC AND TRICH OMONA S VAGIN DARÍO (RRNA ), URINE neisseria gonorrhoeae, PCR Negati ve negati ve Not Available [facility] (Lab) [address] [facility], [place], [address], 06/06/2025 00:50:21 06/04/2006/04/2025 CT/GC AND TRICH OMONA S VAGIN DARÍO (RRNA ), URINE trichomonas vaginalis ribosomal RNA (rrna) Negati ve negati ve Not Available [facility] (Lab) [address] [facility], [place], [address], 06/06/2025 00:50:21 06/04/2006/04/2025 CULTU RE: URINE result report SEE RESULT S BELOW Test: Cultu re: Urine Speci men Sourc e: Urine - Clean Catch Speci men Type: Urine Speci men Date: 1121 Resul t Date: 2346 Resul t Statu s: Final resul t Abnor mal: No Resul ting Lab: [facility] [address] [facility] [address] Tel: CULTU RE ----- ----- ----- --- No growt h in 1 day (dete ction level of 10,00 0 colon ies / ml.) Not Available [facility] (Lab) [address] [facility], [place], [address], 06/06/2025 00:50:22 04/02/20 25 04/02/2025 US, obste tric, nucha l trans lucen cy No observ ation record ed. [facility] [address], [place], [address], 04/02/2025 18:12:46 04/02/20 25 04/02/2025 US, obste tric, nucha l trans lucen cy No observ ation record ed. [email or web address] [address], [place], [address], 04/03/2025 09:42:47 06/04/20 25 06/04/2025 US, obste tric, 2nd or 3rd trime ster No observ ation record ed. [facility] [address], [place], [address], 06/04/2025 12:59:14 06/04/20 25 06/04/2025 US, obste tric, 2nd or 3rd trime ster No observ ation record ed. [email or web address] [address], [place], [address], 06/05/2025 15:57:49 06/29/20 25 06/29/2025 US, obste tric, limit ed No observ ation record ed. [address], [address], 07/03/2025 15:41:17 06/29/20 25 06/29/2025 US, obste tric, limit ed No observ ation record ed. [address], [address], 07/03/2025 15:40:37 07/30/20 25 07/30/2025 non-s tress test No observ ation record ed. [address], [address], 07/31/2025 15:49:44 08/27/20 25 08/27/2025 US, obste tric, follo w-up No observ ation record ed. [email or web address] [place] [address], [place], [address], 08/27/2025 18:12:06 08/27/20 25 08/27/2025 US, obste tric, follo w-up No observ ation record ed. ARIEL [address], [place], [address], 09/06/2025 13:26:38 09/12/2009/12/2025 non-s tress test No observ ation record ed. [address] [facility], [place], [address], 09/17/2025 10:35:29 09/18/2009/17/2025 imagi ng/di agnos tic resul t No observ ation record ed. [address] [address], [place], [address], 09/18/2025 09:59:20 09/18/20 25 09/18/2025 US, monae tric, follo w-up No observ ation record ed. [email or web address] [place] [address], [place], [address], 09/18/2025 13:44:01 09/18/20 25 09/18/2025 US, risa kee, bioph ysica l profi le No observ ation record ed. [email or web address] [place] [address], [place], [address], 09/18/2025 13:44:13 09/18/20 25 09/18/2025 US, obste tric, follo w-up No observ ation record ed. [email or web address] Renée [address], [place], [address], 09/18/2025 13:07:33 Result Notes None recorded. Problems Name Problem SNOMED Code Status Onset Date Resolution Date Notes Provider Name and Address Organization Details Recorded Time Attentio n deficit hyperact ivity disorder 754151112 Completed No meds Aleena Jccolletteheiketrishamichelle [facility] 12:17:26 Acute depressi on 911163467 Completed To start zoloft 25mg Aleena Michelelaine yessica [facility] 12:17:26 Alpha-fe toprotei n above referenc e range 911884834 Completed [facility] 01/21 - No evidence of NTD from [facility] u/s, but incomple te. [facility] U/S 02/14/21. NSTs & serial growth @ 32 wks - Getting at [facility] Aleena Jcklever juan juan carlos[facility] 12:17:26 Pruritic urticari al papules and plaques of pregnanc y 21407688 Completed steroid cream Aleena Jccolletteheikeelaine juan [facility] 12:17:26 Pregnanc y 51255877 Completed 202006/25/2021 SOLUCERO Shoemaker [facility] 5 17:55:10 Pregnanc y 74838009 Active 2024 SOOzzy Shoemaker [facility] 5 17:55:10 Past pregnanc y history of gestatio nal diabetes mellitus 984173768 Active 2024 JERRY LEVI MD [address], [place], [address], [place] [facility] 5 11:07:10 Gestatio nal diabetes mellitus class A1 37972509 Active 2024 serial growth JERRY LEVI MD [address], [place], [address], [facility] 5 16:38:45 Breech presenta tion 3359459 Active 2024 footling breech, desires ECV JERRY LEVI MD [address], [place], [address], [facility] 5 14:03:22 Problem Notes None recorded. Procedures Surgical History Date Name Laterality Status Provider Name and Address Organization Details Recorded Time 3 Dilation and Curettage completed Tiff Ramesh [facility] 03/07/2025 17:49:40 0 Date of Last Pap Smear completed Brianne Sampson [facility] 04/15/2021 10:16:56 0 Dilation and Curettage completed Adriana Orozco [facility] 02/11/2021 19:34:56 Imaging Results None recorded. Procedure Notes None recorded. Medical Equipment None Reported. Allergies Allergen ID Allergen Name Allergen Category Reaction Reaction Severity Criticality Documentation Date Start Date Code Code System Note Provider Name and Address Organization Details Recorded Time 72901 latex environme nt,medica tion swelling Not available high 08/16/20252021 99799 91 RxNorm React ion: Not Available ariel - External Data Service - prod 5 03:12:19 Medications Name Sig Start Date Stop Date Status Note LastModified by Organization Details LastModified Time Prescriptio n - Prior Authorizati on Request active Not Available Not Available N ot Available fluconazole 150 mg tablet TAKE 1 TABLET (150 MG TOTAL) BY MOUTH ONCE FOR 1 DOSE. 11/10 completed Not Available Not Available Not Available hydrocodone 5 mg-acetamin ophen 325 mg tablet 11/10 completed Not Available Not Available Not Available fluconazole 200 mg tablet TAKE 1 TABLET BY MOUTH 1 TIME A WEEK 11/10 completed Not Available Not Available Not Available ondansetron HCl 4 mg tablet Take 1 tablet by mouth every 4-6 hours as needed for nausea and vomiting 03/11 completed Not Available Not Available Not Available Lantus U-100 Insulin 100 unit/mL subcutaneou s solution Inject 5 units by subcutane ous route at bedtime. active Not Available Not Available No t Available metronidazo le 500 mg tablet TAKE 1 TABLET TWICE A DAY 11/10 completed Not Available Not Available Not Available sulfamethox azole 800 mg-trimetho prim 160 mg tablet TAKE 1 TABLET BY MOUTH TWICE DAILY FOR 10 DAYS FOR WOUND INFECTION 11/10 completed Not Available Not Available Not Available triamcinolo ne acetonide 0.1 % topical cream APPLY A THIN LAYER TO THE AFFECTED AREA(S) BY TOPICAL ROUTE 2 TIMES PER DAY 11/10 completed Not Available Not Available Not Available alprazolam 0.25 mg tablet 11/10 completed Not Available Not Available Not Available famotidine 20 mg tablet TAKE 1 TABLET BY MOUTH TWICE DAILY active Not Available Not Available No t Available promethazin e 25 mg tablet TAKE 1 TABLET BY MOUTH EVERY 4 TO 6 HOURS NEEDED FOR NAUSEA 11/10 completed Not Available Not Available Not Available sertraline 25 mg tablet TAKE 1 TABLET BY MOUTH ONCE DAILY 02/11 completed Not Available Not Available Not Available ibuprofen 600 mg tablet TAKE 1 TABLET BY MOUTH EVERY 6 HOURS NEEDED FOR PAIN 11/10 completed Not Available Not Available Not Available fluoxetine 20 mg capsule Take 1 capsule every day by oral route in the evening. 11/10 completed Not Available Not Available Not Available nitrofurant oin monohydrate /macrocryst als 100 mg capsule TAKE 1 CAPSULE BY MOUTH TWICE A DAY FOR 5 DAYS 11/10 completed Not Available Not Available Not Available active Not Available Not Avai lable Not Available FeroSul 325 mg (65 mg iron) tablet TAKE 1 TABLET BY MOUTH EVERY DAY active Not Available Not Available No t Available Alpa 0.25 mg-0.035 mg tablet TAKE 1 TABLET BY MOUTH EVERY DAY 11/10 completed Not Available Not Available Not Available QuickVue At-Home COVID-19 Test kit REFER TO MANUFACTU RER INSTRUCTI ONS INCLUDED IN PACKAGING 11/10 completed Not Available Not Available Not Available Contour Plus Test Strip USE TO TEST BLOOD GLUCOSE FOUR TIMES DAILY active Not Available Not Available No t Available Contour Plus Blue Meter USE DIRECTED TO TEST BLOOD SUGAR FOUR TIMES DAILY FASTING AND 1 HOUR POST BREAKFAST LUNCH DINNER active Not Available Not Available No t Available Vitals Date Recorded Body height Body mass index (BMI) Body weight Systolic And Diastolic Provider Name and Address Organization Details Last Updated DateTime 08/23/2025 170.18 cm 30.2 kg/m2 80617.33 g 107/72 mm[Hg] Yanira Islas [facility] 08/23/2025 16:51:53 Social History Question Answer Notes LastModified by Organizat ion Details LastModified Time Tobacco Smoking Status Never Smoker Brianne Sampson juan carlos, [facility] 11/24/2020 18:33:42 If You Are , What Was Your Level Of Alcohol Consumption Prior To ? None [email or web address] Information not available 01/14/2021 Are You Blind Or Do You Have Difficulty Seeing? No [email or web address] Information n ot available 01/14/2021 What Is Your Level Of Caffeine Consumption? Occasional [email or web address] Information not available 01/14/2021 In The 14 Days Before Symptom Onset, Have You Had Close Contact With A Laboratory-confirm ed COVID-19 While That Case Was Ill? No [email or web address] Information n ot available 01/14/2021 In The 14 Days Before Symptom Onset, Have You Had Close Contact With A Person Who Is Under Investigation For COVID-19 While That Person Was Ill? No Information not available 01/14/2021 Have You Been To An Area Known To Be High Risk For COVID-19? No [email or web address] Information not available 01/14/2021 Are You Deaf Or Do You Have Serious Difficulty Hearing? No [email or web address] Information not available 01/14/2021 What Type Of Diet Are You Following? REGULAR [email or web address] Information n ot available 01/14/2021 Have You Ever Been Counseled For Unhealthy Alcohol Use? No Information not available 01/14/2021 Do You Use Your Seat Belt Or Car Seat Routinely? Yes [email or web address] Information not available 01/14/2021 Do You Have Smoke And Carbon Monoxide Detectors In Your Home? Yes [email or web address] Information not available 01/14/2021 Do You Use Sunscreen Routinely? Yes [email or web address] Information not available 01/14/2021 Has Tobacco Cessation Counseling Been Provided? No [email or web address] Information not available 01/14/2021 Sex: Unknown Functional Status Question Answer Note LastModified by Organizat ion Details LastModified Time Do you use any illicit or recreational drugs? No [email or web address] Information not available 01/14/2021 Do you or have you ever used any other forms of tobacco or nicotine? No [email or web address] Information not available 01/14/2021 What is your level of alcohol consumption? Occasional [email or web address] Information not available 01/14/2021 Are you able to walk independently without assistance or assistive devices? YESWOREST [email or web address] Information not available 01/14/2021 What is your exercise level? Occasional [email or web address] Information not available 01/14/2021 Mental Status Question Answer Note LastModified by Organization D etails LastModified Time Do you feel stressed (tense, restless, nervous, or anxious, or unable to sleep at night)? [id number] [email or web address] Information not available 01/14/2021 Family History Relationship Description Onset Age of this Age Resolved Age Notes LastModified by Organization Details LastModified Time Father No current problems or disability [email or web address] Not available 11/24 18:33:35 Mother No current problems or disability [email or web address] Not available 11/24 18:33:35 Medical History Condition Response Allergies (Food, seasonal, environmental ) N Other N Drug/Latex Allergies/Reactions N Blood Transfusion N Breast Cancer N Dermatologic Disorders N Lung Disease N Defects or Inherited Disease N Breast Problem N Gestational Diabetes N Hematologic disorders N Anesthesia Complications N History of STI N Deep Vein Thrombosis N Polycystic ovary syndrome N Anxiety Disorder Y Autoimmune disease N Arthritis N Polyps N Infertility N Acid Reflux (GERD) N History of abnormal pap N Cancer N Varicosities N Stroke N Neurologic/Epilepsy N Endometriosis N High Cholesterol N Fibromyalgia N Headaches N Kidney Disease N Heart Problems N Thyroid Problems N Kidney or Bladder Problems N GI Problems N Eating Disorder N Anemia N Art (IVF or FET) N Psychiatric Illness N Ovarian Cancer N Diabetes N Pulmonary (TB, Asthma) N Hepatitis/Liver Disease N No Past Medical History N Eczema N Urinary Tract Infection N Abuse/Domestic Violence N Asthma N Trauma/Violence N Depression/ depression Y Heart Disease N Pre-Eclampsia N Hypertension N Osteoporosis N Thrombophilias N Gynecological History Statement/Question Response Abnormal Pap N Flow Moderate Date of LMP 01/10/2025 On BCP's at Conception? N Was last menstrual period normal Y STIs/STDs N HPV Vaccine N Duration of Flow (days) 5 Current Control Method Are cycles usually normal Y Frequency of Cycle (Q days) 28 Sexually Active? Y Menses Monthly Y Age of first menstrual cycle 15 Date of Last Pap Smear 04/21/2020 Sexual Problems? N LMP Definite Obstetrics History GPAL:G 5 P 1 0 3 1 Type Value Full Term 1 Spontaneous 3 Living 1 Total 5 Past Encounters Encounter ID Performer Location Encounter Start Date Encounter Closed Date Diagnosis/Indication Diagnosis SNOMED-CT Code Diagnosis ICD10 Code Diagnosis IMO Codes Diagnosis Note [id number] JERRY LEVI MD [place] [address],[place] [address] 07/29/2025 09:19:43 07/29/2025 10:06:04 Past history of gestational diabetes mellitus 303470749 O09.299 Z86.32 [id number] - GCT today Gestation period, 28 weeks [id number] Z3A.28 [id number] - continue PNV [id number] Levy Garvin MD [place] [address],[place] [address] 08/16/2025 15:48:14 08/18/2025 09:10:55 care status [id number] Z34.83 [id number] JERRY LEVI MD [place] [address],[place] [address] 08/23/2025 16:39:37 08/24/2025 08:01:43 Gestational diabetes mellitus 93153530 O24.410 [id number] - well controlled with diet, did not start insulin- continue glucose monitoring - serial growth US Gestation period, 32 weeks 8084672 Z3A.32 8627501 - continue PNV Health Concerns Section Related Observation LastModified by Organization Davi jay LastModified Time None Recorded Concern Status LastModified by Organization Details LastModified Time None Recorded Payers Encounter Date Sequence Insurance Name Policy Number Policy Fabian Covered Member ID Fabian Member ID Guarantor Name 08/23/2025 1 [facility] (MEDICAID HMO) [id number] Oscar Elliott [id number] Oscar Elliott Notes Date Note Type Note Provider Name and Address Organization Details Recorded Time 08/23/2025 text/html Generic HPI TemplateReported by Patient JERRY LEVI MD [address], [place], [address], [facility] 08/23/2025 17:11:32 OBGyn Episode Ob Episode Information Episode Created Date Number of Fetuses Patient Bloodtype Patient rh Status Prepregnancy Weight lbs Domestic Partner Domestic Partner Phone Father Name Clinical Trainer Status 04/02/20 25 1 A Positive 174 OPEN Fetus Data First Name Last Name Admitted to NICU Weight (g) Sex Living Outcome Pediatric Complications Fetus ID Race Codes Race Delivery Type [id number] Problems Problem Notes Problem Name Start Date End Date Resolution Snomed Code Not e Past history of gestational diabetes mellitus 05/10/2025 [id number] Gestational diabetes mellitus class A1 08/27/2025 [id number] serial nadir wth US Breech presentation 09/18/2025 [id number] footling breech, desires ECV Johann Calculation Initial Johann Date Initial Exam Date Initial Exam Provider Initial Ultrasound Date Last Menstrual Period Date Ultra Sound Weeks Gestation 10/17/2025 04/02/2025 04/02/2025 01/10/2025 11 Eighteen To Twenty Week Johann Update Ultra Sound Date Fundal Height At Umbil Quickening Date Ultra Sound Latest Weeks Gestation Final Johann Confirmed By Final Johann Confirmed Date Final Johann Date Ultra Sound Latest Days Gestation 06/04/20 25 20 04/02/2025 10/17/19 26 5 Pre-bushra Flowsheet Flowsheet Date 04/02/2025 Hale Score Blood Edema Fundus Height Fundus Units Glucose Ketones Leukocytes Nitrite Labor Signs Protein Cervic Dilation Cervic Effacement Cervic Station neg none Type Weight in lbs Pre/Post Dialysis Refused Weight 171.944842022126 BP Diastolic BP Location Tested BP Systolic BP Type 76 L arm 110 sitting Fetus Heart Rate Present A Present Fetus Movement A No Comments Patient presents to [facility] care. Hx of gestational diabetes in her G2 . otherwise uncomplicated. No nausea or cramping. NT/NB wnl today, desires NIPT. Will draw today with new OB labs. RTC 4 weeks for routine care. Flowsheet Date 05/10/2025 Hale Score Blood Edema Fundus Height Fundus Units Glucose Ketones Leukocytes Nitrite Labor Signs Protein Cervic Dilation Cervic Effacement Cervic Station Type Weight in lbs Pre/Post Dialysis Refused Weight 173.372941532645 BP Diastolic BP Location Tested BP Systolic BP Type 68 L arm 107 sitting Fetus Heart Rate Present A 150 Fetus Movement A Yes Comments Doing well, some movem ent. Having some right sided sciatica, discussed conservative measures. COnsider PT referral if still worsening next week. LR female NIPT! Sickle cell trait on carrier screen, discussed with patient. Other OB labs wnl. Discussed anatomy US for next visit. RTC 4 weeks. Flowsheet Date 06/04/2025 Hale Score Blood Edema Fundus Height Fundus Units Glucose Ketones Leukocytes Nitrite Labor Signs Protein Cervic Dilation Cervic Effacement Cervic Station Type Weight in lbs Pre/Post Dialysis Refused BP Diastolic BP Location Tested BP Systolic BP Type Fetus Heart Rate Present Fetus Movement Comments Flowsheet Date 06/04/2025 Hale Score Blood Edema Fundus Height Fundus Units Glucose Ketones Leukocytes Nitrite Labor Signs Protein Cervic Dilation Cervic Effacement Cervic Station Type Weight in lbs Pre/Post Dialysis Refused 180.882990709969 BP Diastolic BP Location Tested BP Systolic BP Type 77 L arm 117 sitting Fetus Heart Rate Present A Present Fetus Movement A Yes Comments Doing well, good movem ent. No cramping or bleeding. Anatomy complete and normal. EFW 47%. Discussed EIF. Repeat US at 32 weeks. RTC 4 weeks. Flowsheet Date 07/01/2025 Hale Score Blood Edema Fundus Height Fundus Units Glucose Ketones Leukocytes Nitrite Labor Signs Protein Cervic Dilation Cervic Effacement Cervic Station Type Weight in lbs Pre/Post Dialysis Refused Weight 184.938004580816 BP Diastolic BP Location Tested BP Systolic BP Type 67 L arm 101 sitting Fetus Heart Rate Present A 145 Fetus Movement A Yes Comments Doing well, baby active. No cramping. Had increased vaginal pressure and one episode of spotting on Tuesday, went to [facility] and workup was negative. Discussed GCT and labs for next visit. RTC 4 weeks. Flowsheet Date 07/29/2025 Hale Score Blood Edema Fundus Height Fundus Units Glucose Ketones Leukocytes Nitrite Labor Signs Protein Cervic Dilation Cervic Effacement Cervic Station Type Weight in lbs Pre/Post Dialysis Refused 192.351945400529 BP Diastolic BP Location Tested BP Systolic BP Type 70 L arm 104 sitting Fetus Heart Rate Present A 140 Fetus Movement A Yes Comments Good movement. Having gum hypertrophy and swelling, bleeding with brushing. Some pelvic pressure. GCT and labs today. Discussed tdap. RTC 2 weeks. Flowsheet Date 08/16/2025 Hale Score Blood Edema Fundus Height Fundus Units Glucose Ketones Leukocytes Nitrite Labor Signs Protein Cervic Dilation Cervic Effacement Cervic Station Type Weight in lbs Pre/Post Dialysis Refused Weight 193.054881619011 BP Diastolic BP Location Tested BP Systolic BP Type 60 L arm 96 sitting Fetus Heart Rate Present A 146 Present Fetus Movement A Yes Comments patient did not attend diabe smiley education. Did not pick up driver insulin and supplies. She was counseled today about arranging diabetes education at the hospital. Discussed with her the seriousness of blood sugar control. Indicated her that stillbirth risk is markedly increased with poorly gestational controlled diabetes. Flowsheet Date 08/23/2025 Hale Score Blood Edema Fundus Height Fundus Units Glucose Ketones Leukocytes Nitrite Labor Signs Protein Cervic Dilation Cervic Effacement Cervic Station Type Weight in lbs Pre/Post Dialysis Refused Weight 193.840061428212 BP Diastolic BP Location Tested BP Systolic BP Type 72 L arm 107 sitting Fetus Heart Rate Present A 130 Fetus Movement A Yes Comments GOod movement. Increas ed fatigue, no cramping. Fast[place] now wnl with diet changes. Attended diabetic education. Fastings in the 80s, postprandials less than 140. Discussed tdap, RSV, and preadmission. RTC 2 weeks. Flowsheet Date 08/27/2025 Hale Score Blood Edema Fundus Height Fundus Units Glucose Ketones Leukocytes Nitrite Labor Signs Protein Cervic Dilation Cervic Effacement Cervic Station Type Weight in lbs Pre/Post Dialysis Refused BP Diastolic BP Location Tested BP Systolic BP Type Fetus Heart Rate Present Fetus Movement Comments Flowsheet Date 08/27/2025 Hale Score Blood Edema Fundus Height Fundus Units Glucose Ketones Leukocytes Nitrite Labor Signs Protein Cervic Dilation Cervic Effacement Cervic Station Type Weight in lbs Pre/Post Dialysis Refused Weight 193.050617765129 BP Diastolic BP Location Tested BP Systolic BP Type 72 L arm 107 sitting Fetus Heart Rate Present Fetus Movement A Yes Comments Doing well, good movem ent. No cramping or bleeding. Fastings and postprandials well controlled. Discussed preadmission. EFW 30%, transverse. Repeat in 4 weeks. RTC 2 weeks. Flowsheet Date 09/18/2025 Hale Score Blood Edema Fundus Height Fundus Units Glucose Ketones Leukocytes Nitrite Labor Signs Protein Cervic Dilation Cervic Effacement Cervic Station Type Weight in lbs Pre/Post Dialysis Refused BP Diastolic BP Location Tested BP Systolic BP Type Fetus Heart Rate Present Fetus Movement Comments Flowsheet Date 09/18/2025 Hale Score Blood Edema Fundus Height Fundus Units Glucose Ketones Leukocytes Nitrite Labor Signs Protein Cervic Dilation Cervic Effacement Cervic Station Type Weight in lbs Pre/Post Dialysis Refused BP Diastolic BP Location Tested BP Systolic BP Type Fetus Heart Rate Present A Present Fetus Movement A Yes Comments Patient has been having decr eased movement, was seen at [place] [facility] last night and had reactive NST. US today demonstrates footling breech presentation (changed from transverse), BPP 8/8. EFW 30%. Discussed footling breech presentation and ECV vs PCS, r/b of each. Patient desires ECV. Will plan for 37-38 weeks. Also discussed spinning babies. GBS collected. Blood sugars well controlled. Would like delivery on 10/11, mode TBD after ECV. RTC 1 week. Menstrual History Last Menstrual Date Menses Monthly On Bcp Conception Prior Menses Frequency Hcg Plus Date Menarche Onset Age 0401/10/2025 Delivery Information Delivery Date Delivery Type Labor Anesthesia Weeks Gestation Incision Type Labor Labor Length Hrs Delivered By Post Complications Tubal Sterilization Discharge Date Comments Discharge Information Feeding Method Contraceptive Method Maternal HG B and HCT Levels
--- OUTSIDE RECORDS SUMMARY | 2025-09-19 23:54 | XMS_ITS | Continuity of Care Document ---
Author Organization [facility] Address [address] [place] [address] Assessment No assessment recorded. Plan of Treatment Reminders Order Date Submit Date Provider Last Modified By Organization Details Last Modified Time Details Appointments OB ROUTINE 2024 01:30P Valerie LEVI MD Not available Not available Not available SURG MISC 2024 01:30P Valerie LEVI MD Not available Not available Not available Lab RPR (rapid plasma reagin), serum [id number] (Lab), [address] [facility], [place], [address], 07/16/2025 18:48:39 glucose tolerance test, gestation al panel 2024 025 [facility] (Lab), [address], [place], [address], 07/30/2025 11:14:16 hematocri t, blood 2024 025 [facility] (Lab), [address], [place], [address], 07/30/2025 11:14:17 hemoglobi n (Hb), blood 2024 025 [facility] (Lab), [address] , [place], [address], 07/30/2025 11:14:17 HIV 1+2 AB + HIV 1 p24 Ag, qualitati ve immunoass ay, serum 2024 025 [facility] (Lab), [address], [place], [address], 07/30/2025 11:14:16 Referral None recorded. Procedures None recorded. Surgeries None recorded. Imaging None recorded. Medication Orders None recorded. Patient TargetsNo targets recorded. Patient InstructionsNo instructions recorded. Reason for Referral None Reported. Results Created Date Observation Date Name Description Value Unit Range Abnormal Flag Note LastModifiedBy Organization Detail LastModifiedTime 04/09/2004/09/2025 [UNIT Y] ANEUP LOIDY NIPT fraction 8.7% normal Not Available [facility] [address], [place], [address], 04/09/2025 23:26:44 04/09/20 25 04/09/2025 [UNIT Y] ANEUP LOIDY NIPT sex chromosome aneuploidy NOT DETECT ED normal Not Available [facility] [address], [place], [address], 04/09/2025 23:26:44 04/09/20 25 04/09/2025 [UNIT Y] ANEUP LOIDY NIPT monosomy X LOW RISK <1 in 10,000 normal Not Available [facility] [address], [place], [address], 04/09/2025 23:26:44 04/09/20 25 04/09/2025 [UNIT Y] ANEUP LOIDY NIPT trisomy 13 LOW RISK <1 in 10,000 normal Not Available [facility] [address], [place], [address], 04/09/2025 23:26:44 04/09/20 25 04/09/2025 [UNIT Y] ANEUP LOIDY NIPT trisomy 18 LOW RISK <1 in 10,000 normal Not Available [facility] [address], [place], [address], 04/09/2025 23:26:44 04/09/20 25 04/09/2025 [UNIT Y] ANEUP LOIDY NIPT trisomy 21 LOW RISK <1 in 10,000 normal Not Available [facility] [address], [place], [address], 04/09/2025 23:26:44 04/09/20 25 04/09/2025 [UNIT Y] ANEUP LOIDY NIPT sex FEMALE normal Not Available [facility] [address], [place], [address], 04/09/2025 23:26:44 04/09/20 25 04/09/2025 [UNIT Y] ANEUP LOIDY NIPT gestation SINGLE TON normal Not Available [facility] [address], [place], [address], 04/09/2025 23:26:44 04/09/20 25 04/09/2025 [UNIT Y] ANEUP LOIDY NIPT for detailed report, see pdf See PDF normal Not Available [facility] [address], [place], [address], 04/09/2025 23:26:44 04/15/20 25 04/15/2025 [UNIT Y] JOVANY Frey fraction 5.4% normal Not Available [facility] [address], [place], [address], 04/15/2025 23:58:47 04/15/20 25 04/15/2025 [UNIT Y] JOVANY DEVEN Frey sickle cell disease/beta -thalassemia /hemoglobino pathies nipt result LOW RISK < 1 in 3200 normal Not Available [facility] [address], [place], [address], 04/15/2025 23:58:47 04/15/20 25 04/15/2025 [UNIT Y] JOVANY DEVEN Frey sickle cell disease/beta -thalassemia /hemoglobino pathies carrier screen POSITI VE Sickle cell: c.20A> T (p.Glu 7Val) abnormal Not Available [facility] [address], [place], [address], 04/15/2025 23:58:47 04/15/20 25 04/15/2025 [UNIT Y] JOVANY DEVEN Frey alpha-thalas semia carrier screen NEGATI VE normal Not Available [facility] [address], [place], [address], 04/15/2025 23:58:47 04/15/20 25 04/15/2025 [UNIT Y] JOVANY DEVEN Frey cystic fibrosis carrier screen NEGATI VE normal Not Available [facility] [address], [place], [address], 04/15/2025 23:58:47 04/15/20 25 04/15/2025 [UNIT Y] JOVANY Frey spinal muscular atrophy carrier screen NEGATI VE 3 SMN1 copies , SNP presen t normal Not Available [facility] [address], [place], [address], 04/15/2025 23:58:47 04/15/20 25 04/15/2025 [UNIT Y] JOVANY DEVEN Frey for detailed report, see pdf See PDF normal Not Available [facility] [address], [place], [address], 04/15/2025 23:58:47 04/02/20 25 04/02/2025 HIV 1/2 ANTIG EN/AN TIBOD Y, REFLE X CONFI RMATI ON HIV antigen/anti body Nonrea ctive nonrea ctive HIV-1 antig en and HIV-1 /HIV- 2 antib odies were not detec nhan. No labor atory evide nce of HIV infec tion. Not Available [facility] (Lab) [address], [place], [address], 04/03/2025 12:34:58 04/02/20 25 04/02/2025 HEPAT ITIS B SURFA CE ANTIG EN hepatitis B surface antigen Non-re active non-re active This assay was perfo rmed using [employer] ratio n reage nts and test kits. Value s obtai tunde with other assay metho ds or kits canno t be used inter baez eably . Not Available [facility] (Lab) [address] [facility], [place], [address], 04/03/2025 12:34:58 04/02/2004/02/2025 CBC W/DIF F WBC 10.3 10'3/ uL 3.5-10 .5 Not Available [facility] (Lab) [address] [facility], [place], [address], 04/03/2025 12:34:59 04/02/20 25 04/02/2025 CBC W/DIF F RBC 3.84 10'6/ uL (based on docume nted legal sex) 3.80-5 .20 Not Available [facility] (Lab) [address] [facility], [place], [address], 04/03/2025 12:34:59 04/02/20 25 04/02/2025 CBC W/DIF F HGB 11.8 g/dL (based on docume nted legal sex) 11.6-1 5.4 Not Available [facility] (Lab) [address] [facility], [place], [address], 04/03/2025 12:34:59 04/02/20 25 04/02/2025 CBC W/DIF F HCT 34.1 % (based on docume nted legal sex) 34.0-4 5.0 Not Available [facility] (Lab) [address] [facility], [place], [address], 04/03/2025 12:34:59 04/02/20 25 04/02/2025 CBC W/DIF F MCV 88.8 fL 80.0-9 9.0 Not Available [facility] (Lab) [address] [facility], [place], [address], 04/03/2025 12:34:59 04/02/20 25 04/02/2025 CBC W/DIF F MCH 30.7 pg 27.0-3 4.0 Not Available [facility] (Lab) [address], [place], [address], 04/03/2025 12:34:59 04/02/20 25 04/02/2025 CBC W/DIF F MCHC 34.6 g/dL 32.0-3 5.5 Not Available [facility] (Lab) [address] [facility], [place], [address], 04/03/2025 12:34:59 04/02/20 25 04/02/2025 CBC W/DIF F RDW 12.5 % 11.0-1 5.0 Not Available [facility] (Lab) [address] [facility], [place], [address], 04/03/2025 12:34:59 04/02/20 25 04/02/2025 CBC W/DIF F plt 267 10'3/ uL 150-40 0 Not Available [facility] (Lab) [address] [facility], [place], [address], 04/03/2025 12:34:59 04/02/20 25 04/02/2025 CBC W/DIF F MPV 10.2 fL 8.8-12 .1 Not Available [facility] (Lab) [address] [facility], [place], [address], 04/03/2025 12:34:59 04/02/20 25 04/02/2025 CBC W/DIF F NRBC's 0.0 % 0.0 Not Available [facility] (Lab) [address] [place], [address], 04/03/2025 12:34:59 04/02/20 25 04/02/2025 CBC W/DIF F absolute NRBCs 0.0 10'3/ uL no refere nce range establ ished Not Available [facility] (Lab) [address] [facility], [place], [address], 04/03/2025 12:34:59 04/02/20 25 04/02/2025 CBC W/DIF F neutrophils 73.5 % 34.0-7 3.0 high Not Available [facility] (Lab) [address] [facility], [place], [address], 04/03/2025 12:34:59 04/02/20 25 04/02/2025 CBC W/DIF F lymphocytes 18.6 % 15.0-5 0.0 Not Available [facility] (Lab) [address] [facility], [place], [address], 04/03/2025 12:34:59 04/02/20 25 04/02/2025 CBC W/DIF F monocytes 6.1 % 1.0-15 .0 Not Available [facility] (Lab) [address] [facility], [place], [address], 04/03/2025 12:34:59 04/02/20 25 04/02/2025 CBC W/DIF F eosinophils 1.3 % 0.0-8. 0 Not Available [facility] (Lab) [address] [facility], [place], [address], 04/03/2025 12:34:59 04/02/20 25 04/02/2025 CBC W/DIF F basophils 0.2 % 0.0-2. 0 Not Available [facility] (Lab) [address] [facility], [place], [address], 04/03/2025 12:34:59 04/02/20 25 04/02/2025 CBC W/DIF [...] separ ately if prese nt. Not Available [facility] (Lab) [address] [facility], [place], [address], 04/03/2025 12:34:59 04/02/20 25 04/02/2025 CBC W/DIF F absolute neutrophils 7.6 10'3/ uL 1.5-8. 0 Not Available [facility] (Lab) [address] [facility], [place], [address], 04/03/2025 12:34:59 04/02/20 25 04/02/2025 CBC W/DIF F absolute lymphocytes 1.9 10'3/ uL 1.0-4. 0 Not Available [facility] (Lab) [address] [facility], [place], [address], 04/03/2025 12:34:59 04/02/20 25 04/02/2025 CBC W/DIF F absolute monocytes 0.6 10'3/ uL 0.2-1. 0 Not Available [facility] (Lab) [address] [facility], [place], [address], 04/03/2025 12:34:59 04/02/20 25 04/02/2025 CBC W/DIF F absolute eosinophils 0.1 10'3/ uL 0.0-0. 6 Not Available [facility] (Lab) [address] [facility], [place], [address], 04/03/2025 12:34:59 04/02/20 25 04/02/2025 CBC W/DIF F absolute basophils 0.0 10'3/ uL 0.0-0. 3 Not Available [facility] (Lab) [address] [facility], [place], [address], 04/03/2025 12:34:59 04/02/20 25 04/02/2025 CBC W/DIF F absolute immature granulocytes 0.0 10'3/ uL 0.00-0 .10 Refer ence range s for nonbi nary/ inter sex or unspe cifie d gende r patie nts have not been estab madhu baker Pletono e refer to the follo wing table for range s estab lishe d for cisge nder patie nts and evalu ate in the clini fady rajan xt of the indiv idual patie nt: https ://lida rick book. nm.or g/gen derx Not Available [facility] (Lab) [address], [place], [address], 04/03/2025 12:34:59 04/02/20 25 04/02/2025 HEPAT ITIS C ANTIB CHER SCREE N, REFLE X TO CONFI RMATI ON hepatitis C antibody Non-re active non-re active Antib odies to HCV Not Detec nhan, does not exclu de the possi bilit y of expos ure to HCV. Not Available [facility] (Lab) [address], [place], [address], 04/03/2025 12:34:59 04/02/20 25 04/02/2025 RUBEL LA IGG ANTIB CHER, QUANT rubella antibodies, IgG Reacti ve reacti ve Not Available [facility] (Lab) [address], [place], [address], 04/03/2025 12:34:59 04/02/20 25 04/02/2025 RUBEL LA IGG ANTIB CHER, QUANT rubella antibodies, IgG quant 20.7 IU/mL >=10 Non-r eacti ve (Non- Immun e) <10 IU/mL React nicholas (Immu ne) > or = 10 IU/mL Not Available [facility] (Lab) [address], [place], [address], 04/03/2025 12:34:59 04/02/20 25 04/02/2025 TYPE/ RH/SC REEN ABO/Rh type A POS Not Available [facility] (Lab) [address], [place], [address], 04/03/2025 12:35:00 04/02/20 25 04/02/2025 TYPE/ RH/SC REEN antibody screen NEG Not Available [facility] (Lab) [address], [place], [address], 04/03/2025 12:35:00 04/02/20 25 04/02/2025 TYPE/ RH/SC REEN exp date 2024 23:59 Not Available [facility] (Lab) [address] [facility], [place], [address], 04/03/2025 12:35:00 04/02/20 25 04/02/2025 HEMOG LOBIN A1C hemoglobin A1C 4.5 % 4.0-5. 6 The Ameri can Di[employer] smiley [employer] iatio n recom mends that a prima ry goal of thera py shoul d be a HBA1C of < 7% and that physi cians shoul d reeva luate the treat ment regim en in patie nts with HBA1C value s consi stent ly > 8%. <5.7% Jerica l 5.7 - 6.4% Incre ased risk for diabe smiley >=6.5 % Diagn ostic of diabe smiley <7.0% Goal of thera py >8.0% Actio n sugge sted Not Available [facility] (Lab) [address] [facility], [place], [address], 04/03/2025 12:35:00 04/02/20 25 04/02/2025 RPR SCREE N, REFLE X TITER /CONF IRMAT ION RPR qualitative Nonrea ctive nonrea ctive Not Available [facility] (Lab) [address] [facility], [place], [address], 04/03/2025 12:35:01 06/04/20 25 06/04/2025 CT/GC AND TRICH OMONA S VAGIN DARÍO (RRNA ), URINE chlamydia trachomatis, PCR Negati ve negati ve Not Available [facility] (Lab) [address] [facility], [place], [address], 06/06/2025 00:50:21 06/04/20 25 06/04/2025 CT/GC AND TRICH OMONA S VAGIN DARÍO (RRNA ), URINE neisseria gonorrhoeae, PCR Negati ve negati ve Not Available [facility] (Lab) [address] [facility], [place], [address], 06/06/2025 00:50:21 06/04/20 25 06/04/2025 CT/GC AND TRICH OMONA S VAGIN DARÍO (RRNA ), URINE trichomonas vaginalis ribosomal RNA (rrna) Negati ve negati ve Not Available [facility] (Lab) [address] [facility], [place], [address], 06/06/2025 00:50:21 06/04/2006/04/2025 CULTU RE: URINE result report SEE RESULT S BELOW Test: Cultu re: Urine Speci men Sourc e: Urine - Clean Catch Speci men Type: Urine Speci men Date: 1121 Resul t Date: 2346 Resul t Statu s: Final resul t Abnor mal: No Resul ting Lab: [facility] [address] [facility] [address] Tel: CULTU RE ----- ----- ----- --- No growt h in 1 day (dete ction level of 10,00 0 colon ies / ml.) Not Available [facility] (Lab) [address] [facility], [place], [address], 06/06/2025 00:50:22 04/02/2004/02/2025 US, obste tric, nucha l trans lucen cy No observ ation record ed. [facility] [address], [place], [address], 04/02/2025 18:12:46 04/02/2004/02/2025 US, obste tric, nucha l trans lucen cy No observ ation record ed. [facility] [address], [place], [address], 04/03/2025 09:42:47 06/04/2006/04/2025 US, obste tric, 2nd or 3rd trime ster No observ ation record ed. [facility] [address], [place], [address], 06/04/2025 12:59:14 06/04/20 25 06/04/2025 US, obste tric, 2nd or 3rd trime ster No observ ation record ed. [email or web address] [address], [place], [address], 06/05/2025 15:57:49 06/29/20 25 06/29/2025 US, obste tric, limit ed No observ ation record ed. [address] [facility], [place], [address], 07/03/2025 15:41:17 06/29/2006/29/2025 US, obste tric, limit ed No observ ation record ed. [address] [facility], [place], [address], 07/03/2025 15:40:37 07/30/2007/30/2025 non-s tress test No observ ation record ed. [address] [facility], [place], [address], 07/31/2025 15:49:44 08/27/2008/27/2025 US, obste tric, follo w-up No observ ation record ed. [facility] [address], [place], [address], 08/27/2025 18:12:06 08/27/2008/27/2025 US, obste tric, follo w-up No observ ation record ed. ARIEL [address] [address], [place], [address], 09/06/2025 13:26:38 09/12/20 25 09/12/2025 non-s tress test No observ ation record ed. [facility] [address], [place], [address], 09/17/2025 10:35:29 09/18/20 25 09/17/2025 imagi ng/di agnos tic resul t No observ ation record ed. [facility] [address], [place], [address], 09/18/2025 09:59:20 09/18/20 25 09/18/2025 US, obste tric, follo w-up No observ ation record ed. [email or web address] [place] [address], [place], [address], 09/18/2025 13:44:01 09/18/20 25 09/18/2025 US, obste tric, bioph ysica l profi le No observ ation record ed. [email or web address] [place] [address], [place], [address], 09/18/2025 13:44:13 09/18/20 25 09/18/2025 US, obste tric, follo w-up No observ ation record ed. [email or web address] [place] [address], [place], [address], 09/18/2025 13:07:33 Result Notes None recorded. Problems Name Problem SNOMED Code Status Onset Date Resolution Date Notes Provider Name and Address Organization Details Recorded Time Attentio n deficit hyperact ivity disorder 015439028 Completed No meds Aleena rangel [facility] 12:17:26 Acute depressi on 569086835 Completed To start zoloft 25mg Aleena rangel [facility] 12:17:26 Alpha-fe toprotei n above referenc e range 968607546 Completed [facility] 01/21 - No evidence of NTD from 1st u/s, but incomple te. Rpt U/S 02/14/21. NSTs & serial growth @ 32 wks - Getting at [facility] Aleena Emily rangel [facility] 1 12:17:26 Pruritic urticari al papules and plaques of pregnanc y 74232529 Completed steroid cream Aleena Jccolletteheikeelaine yessica juan carlos [facility] 1 12:17:26 Pregnanc y 08490961 Completed 202006/25/2021 SO [facility], [facility] 5 17:55:10 Pregnanc y 45935839 [facility] 2024 [facility] 17:55:10 Past pregnanc y history of gestatio nal diabetes mellitus 195353472 Active 2024 JERRY LEVI MD [address], [place], [address], [facility] 5 11:07:10 Gestatio nal diabetes mellitus class A1 74097899 Active 2024 serial growth JERRY LEVI MD [address], [place], [address], [facility] 5 16:38:45 Breech presenta tion 5947811 Active 2024 footling breech, desires ECV JERRY LEVI MD [address], [place], [address], [facility] 5 14:03:22 Problem Notes None recorded. Procedures Surgical History Date Name Laterality Status Provider Name and Address Organization Details Recorded Time 3 Dilation and Curettage completed Tiff Ramesh [facility] 03/07/2025 17:49:40 0 Date of Last Pap Smear completed Brianne Sampson [facility] 04/15/2021 10:16:56 0 Dilation and Curettage completed Adriana Orozco [facility] 02/11/2021 19:34:56 Imaging Results None recorded. Procedure Notes None recorded. Medical Equipment None Reported. Allergies Allergen ID Allergen Name Allergen Category Reaction Reaction Severity Criticality Documentation Date Start Date Code Code System Note Provider Name and Address Organization Details Recorded Time 90211 latex environme nt,medica tion swelling Not available high 08/16/20252021 11389 91 RxNorm React ion: Not Available ariel - External Data Service - prod 03:12:19 Medications Name Sig Start Date Stop [...] and Address Organization Details Last Updated DateTime 07/01/2025 170.18 cm 28.8 kg/m2 43335 g 101/67 mm[Hg] Yanira Islas [facility] 07/01/2025 15:45:40 Social History Question Answer Notes LastModified by Organizat ion Details LastModified Time Tobacco Smoking Status Never Smoker Brianne rangel, [facility] 11/24/2020 18:33:42 If You Are , What Was Your Level Of Alcohol Consumption Prior To ? None [email or web address] Information not available 01/14/2021 Are You Blind Or Do You Have Difficulty Seeing? No Information n ot available 01/14/2021 What Is Your Level Of Caffeine Consumption? Occasional [email or web address] Information not available 01/14/2021 In The 14 Days Before Symptom Onset, Have You Had Close Contact With A Laboratory-confirm ed COVID-19 While That Case Was Ill? No [email or web address] Information n ot available 01/14/2021 In The 14 Days Before Symptom Onset, Have You Had Close Contact With A Person Who Is Under Investigation For COVID-19 While That Person Was Ill? No [email or web address] Information not available 01/14/2021 Have You Been To An Area Known To Be High Risk For COVID-19? No [email or web address] Information not available 01/14/2021 Are You Deaf Or Do You Have Serious Difficulty Hearing? No [email or web address] Information not available 01/14/2021 What Type Of Diet Are You Following? REGULAR [email or web address] Information n ot available 01/14/2021 Have You Ever Been Counseled For Unhealthy Alcohol Use? No Information not available 01/14/2021 Do You Use Your Seat Belt Or Car Seat Routinely? Yes [email or web address] Information not available 01/14/2021 Do You Have Smoke And Carbon Monoxide Detectors In Your Home? Yes [email or web address] Information not available 01/14/2021 Do You Use Sunscreen Routinely? Yes [email or web address] Information not available 01/14/2021 Has Tobacco Cessation Counseling Been Provided? No [email or web address] Information not available 01/14/2021 Sex: Unknown Functional Status Question Answer Note LastModified by Organizat ion Details LastModified Time Do you use any illicit or recreational drugs? No [email or web address] Information not available 01/14/2021 Do you or have you ever used any other forms of tobacco or nicotine? No [email or web address] Information not available 01/14/2021 What is your level of alcohol consumption? Occasional [email or web address] Information not available 01/14/2021 Are you able to walk independently without assistance or assistive devices? YESWOREST [email or web address] Information not available 01/14/2021 What is your exercise level? Occasional [email or web address] Information not available 01/14/2021 Mental Status Question Answer Note LastModified by Organization D etails LastModified Time Do you feel stressed (tense, restless, nervous, or anxious, or unable to sleep at night)? [id number] Information not available 01/14/2021 Family History Relationship Description Onset Age of this Age Resolved Age Notes LastModified by Organization Details LastModified Time Father No current problems or disability [email or web address] Not available 11/24 18:33:35 Mother No current problems or disability [email or web address] Not available 11/24 18:33:35 Medical History Condition [...] ICD10 Code Diagnosis IMO Codes Diagnosis Note [id number] JERRY LEVI MD [place] [address],[facility] [place] [address] 06/04/2025 10:26:08 06/04/2025 11:42:29 screening for malformation 720722514 Z36.3 Z3A.20 3020258574 [id number] JERRY LEVI MD [place] [address],[place] [address] 06/04/2025 10:26:42 06/04/2025 12:18:10 care status 233605161 Z34.82 36710202 - continue PNV Heartburn 46857827 R12 99221 Gestation period, 20 weeks 10234472 Z3A.20 7898292 - continue PNV [id number] JERRY LEVI MD [place] [address],[place] [address] 07/01/2025 15:34:11 07/01/2025 16:25:11 screening 631782502 Z36.89 Gestation period, 24 weeks 807309264 Z3A.24 3948630 - continue PNV Past pregn tangela history of gestational diabetes mellitus 803530951 Z86.32 127198 - GCT at 28 weeks Health Concerns Section Related Observation LastModified by Organization Detai ls LastModified Time None Recorded Concern Status LastModified by Organization Details LastModified Time None Recorded Payers Encounter Date Sequence Insurance Name Policy Number Policy Fabian Covered Member ID Fabian Member ID Guarantor Name 07/01/2025 2 [place] [id number] Oscar Elliott [id number] Oscar Elliott Notes Date Note Type Note Provider Name and Address Organization Details Recorded Time 07/01/2025 text/html Generic HPI TemplateReported by Patient JERRY LEVI MD [address], [place], [address], [facility] 07/01/2025 16:20:45 OBGyn Episode Ob Episode Information Episode Created Date Number of Fetuses Patient Bloodtype Patient rh Status Prepregnancy Weight lbs Domestic Partner Domestic Partner Phone Father Name Film Maker Status 04/02/20 25 1 A Positive 174 OPEN Fetus Data First Name Last Name Admitted to NICU Weight (g) Sex Living Outcome Pediatric Complications Fetus ID Race Codes Race Delivery Type [id number] Problems Problem Notes Problem Name Start Date End Date Resolution Snomed Code Not e Past history of gestational diabetes mellitus 05/10/2025 [id number] Gestational diabetes mellitus class A1 08/27/2025 28097736 serial nadir wth US Breech presentation 09/18/2025 0780870 footling breech, desires ECV Johann Calculation Initial [...] Weight in lbs Pre/Post Dialysis Refused Weight [id number] BP Diastolic BP Location Tested BP Systolic BP Type 76 L arm 110 sitting Fetus Heart Rate Present A Present Fetus Movement A No Comments Patient presents to [facility]. Hx of gestational diabetes in her [...] Weight in lbs Pre/Post Dialysis Refused Weight 173.327762896117 BP Diastolic BP Location Tested BP Systolic [...] Type Weight in lbs Pre/Post Dialysis Refused 180.142755373256 BP Diastolic BP Location Tested BP Systolic [...] Weight in lbs Pre/Post Dialysis Refused Weight 184.943438347188 BP Diastolic BP Location Tested BP Systolic BP Type 67 L arm 101 sitting Fetus Heart Rate Present A 145 Fetus Movement A Yes Comments Doing well, baby active. No cramping. Had increased vaginal pressure and one episode of spotting on Tuesday, went to [facility] and workup was negative. Discussed GCT and labs for next visit. RTC 4 weeks. Flowsheet Date 07/29/2025 Hale Score Blood Edema Fundus Height Fundus Units Glucose Ketones Leukocytes Nitrite Labor Signs Protein Cervic Dilation Cervic Effacement Cervic Station Type Weight in lbs Pre/Post Dialysis Refused 192.706563285497 BP Diastolic BP Location Tested BP Systolic [...] Weight in lbs Pre/Post Dialysis Refused Weight 193.670004953425 BP Diastolic BP Location Tested BP Systolic BP Type 60 L arm 96 sitting Fetus Heart Rate Present A 146 Present Fetus Movement A Yes Comments patient did not attend diabe smiley education. Did not potato pick[employer] insulin and supplies. She was counseled today [...] Weight in lbs Pre/Post Dialysis Refused Weight 193.813619076335 BP Diastolic BP Location Tested BP Systolic [...] Weight in lbs Pre/Post Dialysis Refused Weight 193.815907257866 BP Diastolic BP Location Tested BP Systolic [...] having decr eased movement, was seen at [facility] last night and had reactive NST. US today demonstrates footling breech presentation (changed from transverse), BPP 8/. EFW 30%. Discussed footling breech presentation and [...]
--- OUTSIDE RECORDS SUMMARY | 2025-09-19 23:55 | XMS_ITS | Continuity of Care Document ---
Author Organization [facility] [place] Address [address] [place] [address] [place] [address] Assessment No assessment recorded. Plan of Treatment Reminders Order Date Submit Date Provider Last Modified By Organization Details Last Modified Time Details Appointments OB ROUTINE 2024 01:30P Valerie LEVI MD Not available Not available Not available SURG MISC 2024 01:30P Valerie LEVI MD Not available Not available Not available Lab None recorded. Referral None recorded. Procedures None recorded. Surgeries None recorded. Imaging US, obstetric , follow-up 2024 025 [email or web address] [place], [address], [place], [address], 09/18/2025 18:28:23 US, obstetric , biophysic al profile 2024 025 [email or web address] [place], [address], [place], [address], 09/18/2025 16:04:45 Medication Orders None recorded. Patient TargetsNo targets recorded. Patient InstructionsNo instructions recorded. Reason for Referral None Reported. Results Created Date Observation Date Name Description Value Unit Range Abnormal Flag Note LastModifiedBy Organization Detail LastModifiedTime 04/09/2004/09/2025 [UNIT Y] ANEUP LOIDY NIPT fraction 8.7% normal Not Available [facility] [address], [place], [address], 04/09/2025 23:26:44 04/09/20 25 04/09/2025 [UNIT Y] ANEUP LOIDY NIPT sex chromosome aneuploidy NOT DETECT ED normal Not Available [facility] [address], [place], [address], 04/09/2025 23:26:44 04/09/20 25 04/09/2025 [UNIT Y] ANEUP LOIDY NIPT monosomy X LOW RISK <1 in 10,000 normal Not Available [facility] [address], [place], [address], 04/09/2025 23:26:44 04/09/20 25 04/09/2025 [UNIT Y] ANEUP LOIDY NIPT trisomy 13 LOW RISK <1 in 10,000 normal Not Available [facility] [address], [place], [address], 04/09/2025 23:26:44 04/09/20 25 04/09/2025 [UNIT Y] ANEUP LOIDY NIPT trisomy 18 LOW RISK <1 in 10,000 normal Not Available [facility] [address], [place], [address], 04/09/2025 23:26:44 04/09/20 25 04/09/2025 [UNIT Y] ANEUP LOIDY NIPT trisomy 21 LOW RISK <1 in 10,000 normal Not Available [facility] [address], [place], [address], 04/09/2025 23:26:44 04/09/20 25 04/09/2025 [UNIT Y] ANEUP LOIDY NIPT sex FEMALE normal Not Available [facility] [address], [place], [address], 04/09/2025 23:26:44 04/09/20 25 04/09/2025 [UNIT Y] ANEUP LOIDY NIPT gestation SINGLE TON normal Not Available [facility] [address], [place], [address], 04/09/2025 23:26:44 04/09/20 25 04/09/2025 [UNIT Y] ANEUP LOIDY NIPT for detailed report, see pdf See PDF normal Not Available [facility] [address], [place], [address], 04/09/2025 23:26:44 04/15/20 25 04/15/2025 [UNIT Y] JOVANY Frey fraction 5.4% normal Not Available [facility] [address], [place], [address], 04/15/2025 23:58:47 04/15/20 25 04/15/2025 [UNIT Y] JOVANY Frey sickle cell disease/beta -thalassemia /hemoglobino pathies nipt result LOW RISK < 1 in 3200 normal Not Available [facility] [address], [place], [address], 04/15/2025 23:58:47 04/15/20 25 04/15/2025 [UNIT Y] JOVANY Frey sickle cell disease/beta -thalassemia /hemoglobino pathies carrier screen POSITI VE Sickle cell: c.20A> T (p.Glu 7Val) abnormal Not Available [facility] [address], [place], [address], 04/15/2025 23:58:47 04/15/20 25 04/15/2025 [UNIT Y] JOVANY Frey alpha-thalas semia carrier screen NEGATI VE normal Not Available [facility] [address], [place], [address], 04/15/2025 23:58:47 04/15/20 25 04/15/2025 [UNIT Y] JOVANY Frey cystic fibrosis carrier screen NEGATI VE normal Not Available [facility] [address], [place], [address], 04/15/2025 23:58:47 04/15/20 25 04/15/2025 [UNIT Y] JOVANY Frey spinal muscular atrophy carrier screen NEGATI VE 3 SMN1 copies , SNP presen t normal Not Available [facility] [address], [place], [address], 04/15/2025 23:58:47 04/15/20 25 04/15/2025 [UNIT Y] JOVANY CARVALHO RASHEEDSakshi Shante for detailed report, see pdf See PDF normal Not Available [facility] [address], [place], [address], 04/15/2025 23:58:47 04/02/20 25 04/02/2025 HIV 1/2 ANTIG EN/AN TIBOD Y, REFLE X CONFI RMATI ON HIV antigen/anti body Nonrea ctive nonrea ctive HIV-1 antig en and HIV-1 /HIV- 2 antib odies were not detec nhan. No labor atory evide nce of HIV infec tion. Not Available [facility] (Lab) [address] [facility], [place], [address], 04/03/2025 12:34:58 04/02/2004/02/2025 HEPAT ITIS B SURFA CE ANTIG EN hepatitis B surface antigen Non-re active non-re active This assay was perfo rmed using [employer] ratio n reage nts and test kits. Value s obtai tunde with other assay metho ds or kits canno t be used inter baez eably . Not Available [facility] (Lab) [address] [facility], [place], [address], 04/03/2025 12:34:58 04/02/20 25 04/02/2025 CBC W/DIF F WBC 10.3 10'3/ uL 3.5-10 .5 Not Available [facility] (Lab) [address], [place], [address], 04/03/2025 12:34:59 04/02/20 25 04/02/2025 CBC W/DIF F RBC 3.84 10'6/ uL (based on docume nted legal sex) 3.80-5 .20 Not Available [facility] (Lab) [address] , [place], [address], 04/03/2025 12:34:59 04/02/20 25 04/02/2025 CBC W/DIF F HGB 11.8 g/dL (based on docume nted legal sex) 11.6-1 5.4 Not Available [facility] (Lab) [address] , [place], [address], 04/03/2025 12:34:59 04/02/20 25 04/02/2025 CBC W/DIF F HCT 34.1 % (based on docume nted legal sex) 34.0-4 5.0 Not Available [facility] (Lab) [address] , [place], [address], 04/03/2025 12:34:59 04/02/20 25 04/02/2025 CBC W/DIF F MCV 88.8 fL 80.0-9 9.0 Not Available [facility] (Lab) [address] , [place], [address], 04/03/2025 12:34:59 04/02/20 25 04/02/2025 CBC W/DIF F MCH 30.7 pg 27.0-3 4.0 Not Available [facility] (Lab) [address] , [place], [address], 04/03/2025 12:34:59 04/02/20 25 04/02/2025 CBC W/DIF F MCHC 34.6 g/dL 32.0-3 5.5 Not Available [facility] (Lab) [address] [facility], [place], [address], 04/03/2025 12:34:59 04/02/20 25 04/02/2025 CBC W/DIF F RDW 12.5 % 11.0-1 5.0 Not Available [facility] (Lab) [address] [facility], [place], [address], 04/03/2025 12:34:59 04/02/20 25 04/02/2025 CBC W/DIF F plt 267 10'3/ uL 150-40 0 Not Available [facility] (Lab) [address] [facility], [place], [address], 04/03/2025 12:34:59 04/02/20 25 04/02/2025 CBC W/DIF F MPV 10.2 fL 8.8-12 .1 Not Available [facility] (Lab) [address] [facility], [place], [address], 04/03/2025 12:34:59 04/02/20 25 04/02/2025 CBC W/DIF F NRBC's 0.0 % 0.0 Not Available [facility] (Lab) [address] [facility], [place], [address], 04/03/2025 12:34:59 04/02/20 25 04/02/2025 CBC W/DIF F absolute NRBCs 0.0 10'3/ uL no refere nce range establ ished Not Available [facility] (Lab) [address] [facility], [place], [address], 04/03/2025 12:34:59 04/02/20 25 04/02/2025 CBC W/DIF F neutrophils 73.5 % 34.0-7 3.0 high Not Available [facility] (Lab) [address] [facility], [place], [address], 04/03/2025 12:34:59 04/02/20 25 04/02/2025 CBC W/DIF F lymphocytes 18.6 % 15.0-5 0.0 Not Available [facility] (Lab) [address] [facility], [place], [address], 04/03/2025 12:34:59 04/02/20 25 04/02/2025 CBC W/DIF F monocytes 6.1 % 1.0-15 .0 Not Available [facility] (Lab) [address] [facility], [place], [address], 04/03/2025 12:34:59 04/02/20 25 04/02/2025 CBC W/DIF F eosinophils 1.3 % 0.0-8. 0 Not Available [facility] (Lab) [address] [facility], [place], [address], 04/03/2025 12:34:59 04/02/20 25 04/02/2025 CBC W/DIF F basophils 0.2 % 0.0-2. 0 Not Available [facility] (Lab) [address] [facility], [place], [address], 04/03/2025 12:34:59 04/02/20 25 04/02/2025 CBC W/DIF [...] separ ately if prese nt. Not Available [facility] (Lab) [address] [facility], [place], [address], 04/03/2025 12:34:59 04/02/20 25 04/02/2025 CBC W/DIF F absolute neutrophils 7.6 10'3/ uL 1.5-8. 0 Not Available [facility] (Lab) [address] [facility], [place], [address], 04/03/2025 12:34:59 04/02/20 25 04/02/2025 CBC W/DIF F absolute lymphocytes 1.9 10'3/ uL 1.0-4. 0 Not Available [facility] (Lab) [address] [facility], [place], [address], 04/03/2025 12:34:59 04/02/20 25 04/02/2025 CBC W/DIF F absolute monocytes 0.6 10'3/ uL 0.2-1. 0 Not Available [facility] (Lab) [address] , [place], [address], 04/03/2025 12:34:59 04/02/20 25 04/02/2025 CBC W/DIF F absolute eosinophils 0.1 10'3/ uL 0.0-0. 6 Not Available [facility] (Lab) [address], [place], [address], 04/03/2025 12:34:59 04/02/20 25 04/02/2025 CBC W/DIF F absolute basophils 0.0 10'3/ uL 0.0-0. 3 Not Available [facility] (Lab) [address] [facility], [place], [address], 04/03/2025 12:34:59 04/02/2004/02/2025 CBC W/DIF F absolute immature granulocytes 0.0 10'3/ uL 0.00-0 .10 Refer ence range s for nonbi nary/ inter sex or unspe cifie d gende r patie nts have not been estab lishe d. Pleas e refer to the [place] wing table for range s estab lishe d for cisge nder patie nts and evalu ate in the clini fady rajan xt of the indiv idual patie nt: https ://la prabhjot book. nm.or g/gen derx Not Available [facility] (Lab) [address], [place], [address], 04/03/2025 12:34:59 04/02/2004/02/2025 HEPAT ITIS C ANTIB CHER SCREE N, REFLE X TO CONFI RMATI ON hepatitis C antibody Non-re active non-re active Antib odies to HCV Not Detec nhan, does not exclu de the possi bilit y of expos ure to HCV. Not Available [facility] (Lab) [address], [place], [address], 04/03/2025 12:34:59 04/02/20 25 04/02/2025 RUBEL LA IGG ANTIB CHER, QUANT rubella antibodies, IgG Reacti ve reacti ve Not Available [facility] (Lab) [address] [facility], [place], [address], 04/03/2025 12:34:59 04/02/20 25 04/02/2025 RUBEL LA IGG ANTIB CHER, QUANT rubella antibodies, IgG quant 20.7 IU/mL >=10 Non-r eacti ve (Non- Immun e) <10 IU/mL React nicholas (Immu ne) > or = 10 IU/mL Not Available [facility] (Lab) [address] [facility], [place], [address], 04/03/2025 12:34:59 04/02/20 25 04/02/2025 TYPE/ RH/SC REEN ABO/Rh type A POS Not Available [facility] (Lab) [address] [facility], [place], [address], 04/03/2025 12:35:00 04/02/20 25 04/02/2025 TYPE/ RH/SC REEN antibody screen NEG Not Available [facility] (Lab) [address] [facility], [place], [address], 04/03/2025 12:35:00 04/02/20 25 04/02/2025 TYPE/ RH/SC REEN exp date 2024 23:59 Not Available [facility] (Lab) [address] [facility], [place], [address], 04/03/2025 12:35:00 04/02/20 25 04/02/2025 HEMOG LOBIN A1C hemoglobin A1C 4.5 % 4.0-5. 6 The Ameri can Diabe smiley Assoc iatio n recom mends that a prima ry goal of thermarco a azar d be a HBA1C of < 7% and that physi floyd javier reeva luate the treat ment regim en in patie nts with HBA1C value s consi stent ly > 8%. <5.7% Jerica l 5.7 - 6.4% Incre ased risk for diabe smiley >=6.5 % Diagn ostic of diabe smiley <7.0% Goal of thera py >8.0% Actio n sugge sted Not Available [facility] (Lab) [address] [facility], [place], [address], 04/03/2025 12:35:00 04/02/2004/02/2025 RPR SCREE N, REFLE X TITER /CONF IRMAT ION RPR qualitative Nonrea ctive nonrea ctive Not Available [facility] (Lab) [address] [facility], [place], [address], 04/03/2025 12:35:01 06/04/2006/04/2025 CT/GC AND TRICH OMONA S VAGIN DARÍO (RRNA ), URINE chlamydia trachomatis, PCR Negati ve negati ve Not Available [facility] (Lab) [address] [facility], [place], [address], 06/06/2025 00:50:21 06/04/20 25 06/04/2025 CT/GC AND TRICH OMONA S VAGIN DARÍO (RRNA ), URINE neisseria gonorrhoeae, PCR Negati ve negati ve Not Available [facility] (Lab) [address] [facility], [place], [address], 06/06/2025 00:50:21 06/04/2006/04/2025 CT/GC AND TRICH OMONA S VAGIN DARÍO (RRNA ), URINE trichomonas vaginalis ribosomal RNA (rrna) Negati ve negati ve Not Available [facility] (Lab) [address] [facility], [place], [address], 06/06/2025 00:50:21 06/04/2006/04/2025 CULTU RE: URINE result report SEE RESULT S BELOW Test: Cultu re: Urine Speci men Sourc e: Urine - Clean Catch Speci men Type: Urine Speci men Date: 025 1121 Resul t Date: 025 2346 Resul t Statu s: Final resul t Abnor mal: No Resul ting Lab: [facility] [address] [facility] [address] Tel: CULTU RE ----- ----- ----- --- No growt h in 1 day (dete ction level of 10,00 0 colon ies / ml.) Not Available [facility] (Lab) [address], [place], [address], 06/06/2025 00:50:22 04/02/20 25 04/02/2025 US, obste tric, nucha l trans lucen cy No observ ation record ed. [facility] [address], [place], [address], 04/02/2025 18:12:46 04/02/20 25 04/02/2025 US, obste tric, nucha l trans lucen cy No observ ation record ed. [email or web address] [address], [place], [address], 04/03/2025 09:42:47 06/04/20 25 06/04/2025 US, obste tric, 2nd or 3rd trime ster No observ ation record ed. [facility] [address], [place], [address], 06/04/2025 12:59:14 06/04/20 25 06/04/2025 US, obste tric, 2nd or 3rd trime ster No observ ation record ed. [email or web address] [address], [place], [address], 06/05/2025 15:57:49 06/29/20 25 06/29/2025 US, obste tric, limit ed No observ ation record ed. [place] [address], [place], [address], 07/03/2025 15:41:17 06/29/2006/29/2025 US, obste tric, limit ed No observ ation record ed. [address], [place], [address], 07/03/2025 15:40:37 07/30/2007/30/2025 non-s tress test No observ ation record ed. [address] [facility], [place], [address], 07/31/2025 15:49:44 08/27/2008/27/2025 US, obste tric, follo w-up No observ ation [facility] ed. [email or web address] [address], [place], [address], 08/27/2025 18:12:06 08/27/20 25 08/27/2025 US, obste tric, follo w-up No observ ation record ed. ARIEL Chinchilla [address], [place], [address], 09/06/2025 13:26:38 09/12/2009/12/2025 non-s tress test No observ ation record ed. [address] [facility], [place], [address], 09/17/2025 10:35:29 09/18/2009/17/2025 imagi ng/di agnos tic resul t No observ ation record ed. [address] [address], [place], [address], 09/18/2025 09:59:20 09/18/2009/18/2025 US, obste tric, follo w-up No observ ation record ed. [email or web address] [place] [address] [address], [place], [address], 09/18/2025 13:44:01 09/18/20 25 09/18/2025 US, obste tric, bioph ysica l profi le No observ ation record ed. [email or web address] [place] [address], [place], [address], 09/18/2025 13:44:13 09/18/20 25 09/18/2025 US, obste tric, follo w-up No observ ation record ed. [email or web address] [address], [place], [address], 09/18/2025 13:07:33 Result Notes None recorded. Problems Name Problem SNOMED Code Status Onset Date Resolution Date Notes Provider Name and Address Organization Details Recorded Time Attentio n deficit hyperact ivity disorder 954677270 Completed No meds Aleena rangel [facility] 12:17:26 Acute depressi on 617539980 Completed To start zoloft 25mg Aleena rangel [facility] 12:17:26 Alpha-fe toprotei n above referenc e range 273405156 Completed [facility] 01/21 - No evidence of NTD from 1st u/s, but incomple te. Rpt U/S 02/14/21. NSTs & serial growth @ 32 wks - Getting at [facility] Aleena rangel [facility] 12:17:26 Pruritic urticari al papules and plaques of pregnanc y 71614465 Completed steroid cream Aleena rangel [facility] 12:17:26 Pregnanc y 64516383 Completed 202006/25/2021 SO rangel [facility] 5 17:55:10 Pregnanc y 40486166 Active 2024 SO rangel [facility] 5 17:55:10 Past pregnanc y history of gestatio nal diabetes mellitus 637834439 Active 2024 JERRY LEVI MD [address], [place], [address], [facility] 5 11:07:10 Gestatio nal diabetes mellitus class A1 44182987 Active 2024 serial growth JERRY LEVI MD [address], [place], [address], [facility] 5 16:38:45 Breech presenta tion 7800958 Active 2024 footling breech, desires ECV JERRY LEVI MD [address], [place], [address], [facility] 5 14:03:22 Problem Notes None recorded. Procedures Surgical History Date Name Laterality Status Provider Name and Address Organization Details Recorded Time 3 Dilation and Curettage completed Tiff Ramesh [facility] 03/07/2025 17:49:40 0 Date of Last Pap Smear completed Brianne Sampson [facility] 04/15/2021 10:16:56 0 Dilation and Curettage completed Adriana Orozco [facility] 02/11/2021 19:34:56 Imaging Results None recorded. Procedure Notes None recorded. Medical Equipment None Reported. Allergies Allergen ID Allergen Name Allergen Category Reaction Reaction Severity Criticality Documentation Date Start Date Code Code System Note Provider Name and Address Organization Details Recorded Time 24811 latex environme nt,medica tion swelling Not available high 08/16/20252021 23335 91 RxNorm React ion: Not Available ariel [...] At-Home COVID-19 Test kit REFER TO MANUFACTU KIKI MALDONADOI ONS INCLUDED IN PACKAGING 11/10 completed Not [...] t Available Vitals Date Recorded Body height Provider Name an d Address Organization Details Last Updated DateTime 09/18/2025 170.18 cm LUCINA BALLARD [facility] 09/18/2025 12:59:12 Social History Question Answer Notes LastModified by Organizat ion Details LastModified Time Tobacco Smoking Status Never Smoker Brianne rangel, [facility] 11/24/2020 18:33:42 If You Are , What Was Your Level Of Alcohol Consumption Prior To ? None [email or web address] Information not available 01/14/2021 Are You Blind Or Do You Have Difficulty Seeing? No [email or web address] Information n ot available 01/14/2021 What Is Your Level Of Caffeine Consumption? Occasional [email or web address] Information not available 01/14/2021 In The 14 Days Before Symptom Onset, Have You Had Close Contact With A Laboratory-confirm ed COVID-19 While That Case Was Ill? No [email or web address] Information n ot available 01/14/2021 In The 14 Days Before Symptom Onset, Have You Had Close Contact With A Person Who Is Under Investigation For COVID-19 While That Person Was Ill? No [email or web address] Information not available 01/14/2021 Have You Been To An Area Known To Be High Risk For COVID-19? No [email or web address] Information not available 01/14/2021 Are You Deaf Or Do You Have Serious Difficulty Hearing? No [email or web address] Information not available 01/14/2021 What Type Of Diet Are You Following? REGULAR [email or web address] Information n ot available 01/14/2021 Have You Ever Been Counseled For Unhealthy Alcohol Use? No [email or web address] Information not available 01/14/2021 Do You Use Your Seat Belt Or Car Seat Routinely? Yes [email or web address] Information not available 01/14/2021 Do You Have Smoke And Carbon Monoxide Detectors In Your Home? Yes [email or web address] Information not available 01/14/2021 Do You Use Sunscreen Routinely? Yes [email or web address] Information not available 01/14/2021 Has Tobacco Cessation Counseling Been Provided? No [email or web address] Information not available 01/14/2021 Sex: Unknown Functional Status Question Answer Note LastModified by Organizat ion Details LastModified Time Do you use any illicit or recreational drugs? No [email or web address] Information not available 01/14/2021 Do you or have you ever used any other forms of tobacco or nicotine? No [email or web address] Information not available 01/14/2021 What is your level of alcohol consumption? Occasional Information not available 01/14/2021 Are you able to walk independently without assistance or assistive devices? [email or web address] Information not available 01/14/2021 What is your exercise level? Occasional [email or web address] Information not available 01/14/2021 Mental Status Question Answer Note LastModified by Organization D etails LastModified Time Do you feel stressed (tense, restless, nervous, or anxious, or unable to sleep at night)? [id number] [email or web address] Information not available 01/14/2021 Family History Relationship Description Onset Age of this Age Resolved Age Notes LastModified by Organization Details LastModified Time Father No current problems or disability [email or web address] Not available 11/24 18:33:35 Mother No current problems or disability [email or web address] Not available 11/24 18:33:35 Medical History Condition Response Other N Blood Transfusion N Dermatologic Disorders N Gestational Diabetes N Anxiety Disorder Y Autoimmune disease N Arthritis N Polyps N Infertility N Acid Reflux (GERD) N Cancer N Varicosities N Stroke N Neurologic/Epilepsy N Fibromyalgia N Headaches N Kidney Disease N Heart Problems N Kidney or Bladder Problems N Eating Disorder N Art (IVF or FET) N Hepatitis/Liver Disease N No Past Medical History N Urinary Tract Infection N Asthma N Trauma/Violence N Thrombophilias N Allergies (Food, seasonal, environmental ) N Breast Cancer N Drug/Latex Allergies/Reactions N Lung Disease N Defects or Inherited Disease N Breast Problem N Hematologic disorders N Anesthesia Complications N History of STI N Deep Vein Thrombosis N Polycystic ovary syndrome N History of abnormal pap N Endometriosis N High Cholesterol N Thyroid Problems N GI Problems N Anemia N Psychiatric Illness N Ovarian Cancer N Diabetes N Pulmonary (TB, Asthma) N Eczema N Abuse/Domestic Violence N Depression/ depression Y Heart Disease N Pre-Eclampsia N Hypertension N Osteoporosis N Gynecological History Statement/Question Response Abnormal Pap [...] ICD10 Code Diagnosis IMO Codes Diagnosis Note [id number] JERRY LEVI MD [place] [address],[place] [address] 08/23/2025 16:39:37 08/24/2025 08:01:43 Gestational diabetes mellitus 89981753 O24.410 [id number] - well controlled with diet, did not start insulin- continue glucose monitoring - serial growth US Gestation period, 32 weeks 1936241 Z3A.32 6094563 - continue PNV [id number] MD Rubi KENT [address],[facility] [place] [address] 08/27/2025 14:57:39 08/27/2025 15:28:35 Gestational diabetes mellitus 88782718 O24.410 Z3A.32 25733803 - well controlled with diet, did not start insulin- continue glucose monitoring - serial growth [id number] MD Maria Del Carmen [place] [address],[place] [address] 08/27/2025 14:58:21 08/27/2025 16:49:27 Gestational diabetes mellitus class A1 35726059 O24.410 55384 - well controlled with diet, did not start insulin- continue glucose monitoring - serial growth US Gestation period, 32 weeks [id number] Z3A.32 [id number] - continue PNV [id number] JERRY LEVI MD [place] [address] [address] 09/18/2025 12:32:59 09/18/2025 13:07:52 Gestational diabetes mellitus 31453192 O24.410 O36.8130 Z3A.35 [id number] JERRY LEVI MD [place] [address] [address] 09/18/2025 12:33:26 09/18/2025 14:13:18 Gestational diabetes mellitus class A1 62699493 O24.410 45287 - well controlled with diet, did not start insulin- continue glucose monitoring - serial growth US Breech presentation [id number] - footling breech- discussed r/b of ECV vs PCS; desires ECV Gestation period, 35 weeks [id number] Health Concerns Section Related Observation LastModified by Organization Detai ls LastModified Time None Recorded Concern Status LastModified by Organization Details LastModified Time None Recorded Payers Encounter Date Sequence Insurance Name Policy Number Policy Fabian Covered Member ID Fabian Member ID Guarantor Name 09/18/2025 1 [facility] [id number] Oscar Elliott [id number] Oscar Elliott 09/18/2025 2 [place] [employer] Oscar Elliott [id number] Oscar Elliott Notes Date Note Type Note Provider Name and Address Organization Details Recorded Time 09/18/2025 text/html Generic HPI TemplateReported by Patient JERRY LEVI MD [address], [place], [address], [facility] 09/18/2025 14:04:38 OBGyn Episode Ob Episode Information Episode Created Date Number of Fetuses Patient Bloodtype Patient rh Status Prepregnancy Weight lbs Domestic Partner Domestic Partner Phone Father Name Lean Manufacturing Engineer Status 04/02/20 25 1 A Positive 174 OPEN Fetus Data First Name Last Name Admitted to NICU Weight (g) Sex Living Outcome Pediatric Complications Fetus ID Race Codes Race Delivery Type [id number] Problems Problem Notes Problem Name Start Date End Date Resolution Snomed Code Not e Past history of gestational diabetes mellitus 05/10/2025 [id number] Gestational diabetes mellitus class A1 08/27/2025 [id number] serial nadir wth US Breech presentation 09/18/2025 [id number] footling breech, desires ECV Johann Calculation Initial [...] Sound Latest Days Gestation 06/04/20 25 20 [email or web address] 04/02/2025 10/17/19 26 5 Pre- Flowsheet Flowsheet Date 04/02/2025 Hale Score Blood Edema Fundus Height Fundus Units Glucose Ketones Leukocytes Nitrite Labor Signs Protein Cervic Dilation Cervic Effacement Cervic Station neg none Type Weight in lbs Pre/Post Dialysis Refused Weight 171.891793869174 BP Diastolic BP Location Tested BP Systolic BP Type 76 L arm 110 sitting Fetus Heart Rate Present A Present Fetus Movement A No Comments Patient presents to [facility]. Hx of gestational diabetes in [...] Weight in lbs Pre/Post Dialysis Refused Weight 173.903256099768 BP Diastolic BP Location Tested BP Systolic [...] Type Weight in lbs Pre/Post Dialysis Refused 180.816513203222 BP Diastolic BP Location Tested BP Systolic [...] Weight in lbs Pre/Post Dialysis Refused Weight 184.980623132955 BP Diastolic BP Location Tested BP Systolic BP Type 67 L arm 101 sitting Fetus Heart Rate Present A 145 Fetus Movement A Yes Comments Doing well, baby active. No cramping. Had increased vaginal pressure and one episode of spotting on Tuesday, went to [facility] and workup was negative. Discussed GCT and labs for next visit. RTC 4 weeks. Flowsheet Date 07/29/2025 Hale Score Blood Edema Fundus Height Fundus Units Glucose Ketones Leukocytes Nitrite Labor Signs Protein Cervic Dilation Cervic Effacement Cervic Station Type Weight in lbs Pre/Post Dialysis Refused 192.811451343375 BP Diastolic BP Location Tested BP Systolic [...] Weight in lbs Pre/Post Dialysis Refused Weight 193.995068944065 BP Diastolic BP Location Tested BP Systolic BP Type 60 L arm 96 sitting Fetus Heart Rate Present A 146 Present Fetus Movement A Yes Comments patient did not attend diabe smiley education. Did not diamond picker insulin and supplies. She was counseled [...] Weight in lbs Pre/Post Dialysis Refused Weight 193.697506674049 BP Diastolic BP Location Tested BP Systolic [...] Weight in lbs Pre/Post Dialysis Refused Weight 193.810363740108 BP Diastolic BP Location Tested BP Systolic [...] having decr eased movement, was seen at [facility] last night and had reactive NST. US [...]
--- OUTSIDE RECORDS SUMMARY | 2025-09-19 23:55 | XMS_ITS | Continuity of Care Document ---
Author Organization [facility] [place] Address [address] [place] [address] Assessment No assessment recorded. Plan of Treatment [...] [facility] [address], [place], [address], 04/09/2025 23:26:44 04/09/20 25 04/09/2025 [UNIT Y] ANEUP LOIDY NIPT sex chromosome aneuploidy NOT DETECT ED normal Not Available [facility] [address], [place], [address], 04/09/2025 23:26:44 04/09/20 25 04/09/2025 [UNIT Y] ANEUP LOIDY NIPT monosomy X LOW RISK <1 in 10,000 normal Not Available [facility] [address], [place], [address], 04/09/2025 23:26:44 04/09/20 25 04/09/2025 [UNIT Y] ANEUP LOIDY NIPT trisomy 13 LOW RISK <1 in 10,000 normal Not Available [facility] [address], [place], [address], 04/09/2025 23:26:44 04/09/20 25 04/09/2025 [UNIT Y] ANEUP LOIDY NIPT trisomy 18 LOW RISK <1 in 10,000 normal Not Available [facility] [address], [place], [address], 04/09/2025 23:26:44 04/09/20 25 04/09/2025 [UNIT Y] ANEUP LOIDY NIPT trisomy 21 LOW RISK <1 in 10,000 normal Not Available [facility] [address], [place], [address], 04/09/2025 23:26:44 04/09/20 25 04/09/2025 [UNIT Y] ANEUP LOIDY NIPT sex FEMALE normal Not Available [facility] [address], [place], [address], 04/09/2025 23:26:44 04/09/20 25 04/09/2025 [UNIT Y] ANEUP LOIDY NIPT gestation SINGLE TON normal Not Available [facility] [address], [place], [address], 04/09/2025 23:26:44 04/09/20 25 04/09/2025 [UNIT Y] ANEUP LOIDY NIPT for detailed report, see pdf See PDF normal Not Available [facility] [address], [place], [address], 04/09/2025 23:26:44 04/15/20 25 04/15/2025 [UNIT Y] JOVANY ER SCREE N fraction 5.4% normal Not Available [facility] [address], [place], [address], 04/15/2025 23:58:47 04/15/20 25 04/15/2025 [UNIT Y] JOVANY Frey sickle cell disease/beta -thalassemia /hemoglobino pathies nipt result LOW RISK < 1 in 3200 normal Not Available [facility] [address], [place], [address], 04/15/2025 23:58:47 04/15/20 25 04/15/2025 [UNIT Y] JOVANY Frey sickle cell disease/beta -thalassemia /hemoglobino pathies carrier screen POSITI VE Sickle cell: c.20A> T (p.Glu 7Val) abnormal Not Available [facility] [address], [place], [address], 04/15/2025 23:58:47 04/15/20 25 04/15/2025 [UNIT Y] JOVANY Frey alpha-thalas semia carrier screen NEGATI VE normal Not Available [facility] [address], [place], [address], 04/15/2025 23:58:47 04/15/20 25 04/15/2025 [UNIT Y] JOVANY Frey cystic fibrosis carrier screen NEGATI VE normal Not Available [facility] [address], [place], [address], 04/15/2025 23:58:47 04/15/20 25 04/15/2025 [UNIT Y] JOVANY Frey spinal muscular atrophy carrier screen NEGATI VE 3 SMN1 copies , SNP presen t normal Not Available [facility] [address], [place], [address], 04/15/2025 23:58:47 04/15/20 25 04/15/2025 [UNIT Y] JOVANY Frey for detailed report, see pdf See PDF normal Not Available [facility] [address], [place], [address], 04/15/2025 23:58:47 04/02/2004/02/2025 HIV 1/2 ANTIG EN/AN TIBOD Y, REFLE X CONFI RMATI ON HIV antigen/anti body Nonrea ctive nonrea ctive HIV-1 antig en and HIV-1 /HIV- 2 antib odies were not detec nhan. No labor atory evide nce of HIV infec tion. Not Available [facility] (Lab) [address] [facility], [place], [address], 04/03/2025 12:34:58 04/02/2004/02/2025 HEPAT ITIS B SURFA CE ANTIG EN hepatitis B surface antigen Non-re active non-re active This assay was perfo rmed using [employer] ratio n reage nts and test kits. Value s obtai tunde with other assay metho ds or kits canno t be used inter baez eably . Not Available [facility] (Lab) [address] [facility], [place], [address], 04/03/2025 12:34:58 04/02/2004/02/2025 CBC W/DIF F WBC 10.3 10'3/ uL 3.5-10 .5 Not Available [facility] (Lab) [address] [facility], [place], [address], 04/03/2025 12:34:59 04/02/20 25 04/02/2025 CBC W/DIF F RBC 3.84 10'6/ uL (based on docume nted legal sex) 3.80-5 .20 Not Available [facility] (Lab) [address] [facility], [place], [address], 04/03/2025 12:34:59 04/02/20 25 04/02/2025 CBC W/DIF F HGB 11.8 g/dL (based on docume nted legal sex) 11.6-1 5.4 Not Available [facility] (Lab) [address] [facility], [place], [address], 04/03/2025 12:34:59 04/02/20 25 04/02/2025 CBC W/DIF F HCT 34.1 % (based on docume nted legal sex) 34.0-4 5.0 Not Available [facility] (Lab) [address] [facility], [place], [address], 04/03/2025 12:34:59 04/02/20 25 04/02/2025 CBC W/DIF F MCV 88.8 fL 80.0-9 9.0 Not Available [facility] (Lab) [address] [facility], [place], [address], 04/03/2025 12:34:59 04/02/20 25 04/02/2025 CBC W/DIF F MCH 30.7 pg 27.0-3 4.0 Not Available [facility] (Lab) [address] [facility], [place], [address], 04/03/2025 12:34:59 04/02/20 25 04/02/2025 CBC W/DIF F MCHC 34.6 g/dL 32.0-3 5.5 Not Available [facility] (Lab) [address] [facility], [place], [address], 04/03/2025 12:34:59 04/02/20 25 04/02/2025 CBC W/DIF F RDW 12.5 % 11.0-1 5.0 Not Available [facility] (Lab) [address] [facility], [place], [address], 04/03/2025 12:34:59 04/02/20 25 04/02/2025 CBC W/DIF F plt 267 10'3/ uL 150-40 0 Not Available [facility] (Lab) [address] [facility], [place], [address], 04/03/2025 12:34:59 04/02/20 25 04/02/2025 CBC W/DIF F MPV 10.2 fL 8.8-12 .1 Not Available [facility] (Lab) [address] [facility], [place], [address], 04/03/2025 12:34:59 04/02/20 25 04/02/2025 CBC W/DIF F NRBC's 0.0 % 0.0 Not Available [facility] (Lab) [address] [facility], [place], [address], 04/03/2025 12:34:59 04/02/20 25 04/02/2025 CBC W/DIF F absolute NRBCs 0.0 10'3/ uL no refere nce range establ ished Not Available [facility] (Lab) [address] [facility], [place], [address], 04/03/2025 12:34:59 04/02/20 25 04/02/2025 CBC W/DIF F neutrophils 73.5 % 34.0-7 3.0 high Not Available [facility] (Lab) [address] [facility], [place], [address], 04/03/2025 12:34:59 04/02/20 25 04/02/2025 CBC W/DIF F lymphocytes 18.6 % 15.0-5 0.0 Not Available [facility] (Lab) [address] [facility], [place], [address], 04/03/2025 12:34:59 04/02/20 25 04/02/2025 CBC W/DIF F monocytes 6.1 % 1.0-15 .0 Not Available [facility] (Lab) [address] [facility], [place], [address], 04/03/2025 12:34:59 04/02/2004/02/2025 CBC W/DIF F eosinophils 1.3 % 0.0-8. 0 Not Available [facility] (Lab) [address] [facility], [place], [address], 04/03/2025 12:34:59 04/02/20 25 04/02/2025 CBC W/DIF F basophils 0.2 % 0.0-2. 0 Not Available [facility] (Lab) [address], [place], [address], 04/03/2025 12:34:59 04/02/20 25 04/02/2025 CBC W/DIF [...] separ ately if prese nt. Not Available [facility] (Lab) [address], [place], [address], 04/03/2025 12:34:59 04/02/20 25 04/02/2025 CBC W/DIF F absolute neutrophils 7.6 10'3/ uL 1.5-8. 0 Not Available [facility] (Lab) [address], [place], [address], 04/03/2025 12:34:59 04/02/20 25 04/02/2025 CBC W/DIF F absolute lymphocytes 1.9 10'3/ uL 1.0-4. 0 Not Available [facility] (Lab) [address], [place], [address], 04/03/2025 12:34:59 04/02/20 25 04/02/2025 CBC W/DIF F absolute monocytes 0.6 10'3/ uL 0.2-1. 0 Not Available [facility] (Lab) [address], [place], [address], 04/03/2025 12:34:59 04/02/20 25 04/02/2025 CBC W/DIF F absolute eosinophils 0.1 10'3/ uL 0.0-0. 6 Not Available [facility] (Lab) [address], [place], [address], 04/03/2025 12:34:59 04/02/20 25 04/02/2025 CBC W/DIF F absolute basophils 0.0 10'3/ uL 0.0-0. 3 Not Available [facility] (Lab) [address], [place], [address], 04/03/2025 12:34:59 04/02/20 25 04/02/2025 CBC W/DIF [...] bhand book. nm.or g/gen derx Not Available [facility] (Lab) [address], [place], [address], 04/03/2025 12:34:59 04/02/20 25 04/02/2025 HEPAT ITIS C ANTIB CHER SCREE N, REFLE X TO CONFI RMATI ON hepatitis C antibody Non-re active non-re active Antib odies to HCV Not Detec nhan, does not exclu de the possi bilit y of expos ure to HCV. Not Available [facility] (Lab) [address], [place], [address], 04/03/2025 12:34:59 04/02/20 25 04/02/2025 RUBEL LA IGG ANTIB CHER, QUANT rubella antibodies, IgG Reacti ve reacti ve Not Available [facility] (Lab) [address] [place], [address], 04/03/2025 12:34:59 04/02/20 25 04/02/2025 RUBEL LA IGG ANTIB CHER, QUANT rubella antibodies, IgG quant 20.7 IU/mL >=10 Non-r eacti ve (Non- Immun e) <10 IU/mL React nicholas (Immu ne) > or = 10 IU/mL Not Available [facility] (Lab) [address] [facility], [place], [address], 04/03/2025 12:34:59 04/02/20 25 04/02/2025 TYPE/ RH/SC REEN ABO/Rh type A POS Not Available [facility] (Lab) [address] [facility], [place], [address], 04/03/2025 12:35:00 04/02/20 25 04/02/2025 TYPE/ RH/SC REEN antibody screen NEG Not Available [facility] (Lab) [address] [facility], [place], [address], 04/03/2025 12:35:00 04/02/20 25 04/02/2025 TYPE/ RH/SC REEN exp date 2024 23:59 Not Available [facility] (Lab) [address] [facility], [place], [address], 04/03/2025 12:35:00 04/02/20 25 04/02/2025 HEMOG LOBIN [...] >8.0% Actio n sugge sted Not Available [facility] (Lab) [address] [facility], [place], [address], 04/03/2025 12:35:00 04/02/20 25 04/02/2025 RPR SCREE N, REFLE X TITER /CONF IRMAT ION RPR qualitative Nonrea ctive nonrea ctive Not Available [facility] (Lab) [address] [facility], [place], [address], 04/03/2025 12:35:01 06/04/2006/04/2025 CT/GC AND TRICH OMONA S VAGIN DARÍO (RRNA ), URINE chlamydia trachomatis, PCR Negati ve negati ve Not Available [facility] (Lab) [address] [facility], [place], [address], 06/06/2025 00:50:21 06/04/2006/04/2025 CT/GC AND TRICH OMONA S VAGIN DARÍO (RRNA ), URINE neisseria gonorrhoeae, PCR Negati ve negati ve Not Available [facility] (Lab) [address] [facility], [place], [address], 06/06/2025 00:50:21 06/04/2006/04/2025 CT/GC AND TRICH OMONA S VAGIN DARÍO (RRNA ), URINE trichomonas vaginalis ribosomal RNA (rrna) Negati ve negati ve Not Available [facility] (Lab) [address] [facility], [place], [address], 06/06/2025 00:50:21 06/04/2006/04/2025 CULTU RE: URINE result report SEE RESULT S BELOW Test: Cultu re: Urine Speci men Sourc e: Urine - Clean Catch Speci men Type: Urine Speci men Date: 1121 Resul t Date: 2346 Resul t Statu s: Final resul t Abnor mal: No Resul ting Lab: [facility] [address] [facility] [address] Tel: CULTU RE ----- ----- ----- --- No growt h in 1 day (dete ction level of 10,00 0 colon ies / ml.) Not Available [facility] (Lab) [address] [facility], [place], [address], 06/06/2025 00:50:22 04/02/20 25 04/02/2025 US, obste tric, nucha l trans lucen cy No observ ation record ed. [facility] [address], [place], [address], 04/02/2025 18:12:46 04/02/20 25 04/02/2025 US, obste tric, nucha l trans lucen cy No observ ation record ed. [email or web address] Ren[facility] [address], [place], [address], 04/03/2025 09:42:47 06/04/20 25 06/04/2025 US, obste tric, 2nd or 3rd trime ster No observ ation record ed. [facility] [address], [place], [address], 06/04/2025 12:59:14 06/04/20 25 06/04/2025 US, obste tric, 2nd or 3rd trime ster No observ ation record ed. [email or web address] [facility] [address], [place], [address], 06/05/2025 15:57:49 06/29/20 25 06/29/2025 US, obste tric, limit ed No observ ation record ed. [address], [address], 07/03/2025 15:41:17 06/29/20 25 06/29/2025 US, obste tric, limit ed No observ ation record ed. [address], [address], 07/03/2025 15:40:37 07/30/20 25 07/30/2025 non-s tress test No observ ation record ed. [address], [address], 07/31/2025 15:49:44 08/27/20 25 08/27/2025 US, obste tric, follo w-up No observ ation record ed. [email or web address] [place] [address], [place], [address], 08/27/2025 18:12:06 08/27/20 25 08/27/2025 US, obste tric, follo w-up No observ ation record ed. ARIEL [facility] [address], [place], [address], 09/06/2025 13:26:38 09/12/2009/12/2025 non-s tress test No observ ation record ed. [address] [facility], [place], [address], 09/17/2025 10:35:29 09/18/2009/17/2025 imagi ng/di agnos tic resul t No observ ation record ed. [address] [place] [address], [place], [address], 09/18/2025 09:59:20 09/18/20 25 09/18/2025 US, monae tric, follo w-up No observ ation record ed. [email or web address] [place] [address], [place], [address], 09/18/2025 13:44:01 09/18/20 25 09/18/2025 US, risa kee, bioph ysica l profi le No observ ation record ed. [email or web address] [place] [address], [place], [address], 09/18/2025 13:44:13 09/18/20 25 09/18/2025 US, obste tric, follo w-up No observ ation record ed. [email or web address] Renée [address], [place], [address], 09/18/2025 13:07:33 Result Notes None recorded. Problems Name Problem SNOMED Code Status Onset Date Resolution Date Notes Provider Name and Address Organization Details Recorded Time Attentio n deficit hyperact ivity disorder 466539222 Completed No meds Aleena [facility]iketr[facility]amichelle [facility] 12:17:26 Acute depressi on 346472190 Completed To start zoloft 25mg Aleena Michelelaine yessica [facility] 12:17:26 Alpha-fe toprotei n above referenc e range 352704584 Completed [facility] 01/21 - No evidence of NTD from [facility] u/s, but incomple te. [facility] U/S 02/14/21. NSTs & serial growth @ 32 wks - Getting at [facility] Aleena [facility]cklever [facility] 12:17:26 Pruritic urticari al papules and plaques of pregnanc y 81972972 Completed steroid cream Aleena Jccolletteheikeleaine juan [facility] 12:17:26 Pregnanc y 19915282 Completed 202006/25/2021 SOLUCERO Shoemaker [facility] 5 17:55:10 Pregnanc y 51743714 Active 2024 SOOzzy Shoemaker [facility] 5 17:55:10 Past pregnanc y history of gestatio nal diabetes mellitus 414831600 Active 2024 JERRY LEVI MD [address], [place], [address], [place] [facility] 5 11:07:10 Gestatio nal diabetes mellitus class A1 78662033 Active 2024 serial growth JERRY LEVI MD [address], [place], [address], [facility] 5 16:38:45 Breech presenta tion 3124403 Active 2024 footling breech, desires ECV JERRY LEVI MD [address], [place], [address], [facility] 5 14:03:22 Problem Notes None recorded. Procedures Surgical History Date Name Laterality Status Provider Name and Address Organization Details Recorded Time 3 Dilation and Curettage completed Tiff Ramesh [facility] 03/07/2025 17:49:40 0 Date of Last Pap Smear completed Brianne Sampson [facility] 04/15/2021 10:16:56 0 Dilation and Curettage completed Adriana Orozco [facility] 02/11/2021 19:34:56 Imaging Results None recorded. Procedure Notes None recorded. Medical Equipment None Reported. Allergies Allergen ID Allergen Name Allergen Category Reaction Reaction Severity Criticality Documentation Date Start Date Code Code System Note Provider Name and Address Organization Details Recorded Time 46264 latex environme nt,medica tion swelling Not available high 08/16/20252021 99590 91 RxNorm React ion: Not Available ariel [...] No t Available Vitals Date Recorded Body weight Body mass index (BMI) Body height Systolic And Diastolic Provider Name and Address Organization Details Last Updated DateTime 07/29/2025 88938.735 04 g 30.1 kg/m2 170.18 cm 104/70 mm[Hg] Yanira Islas [facility] 07/29/2025 09:39:52 Social History Question Answer Notes LastModified by Organizat ion Details LastModified Time Tobacco Smoking Status Never Smoker Brianne Sampson juan carlos, [facility] 11/24/2020 18:33:42 If You Are , What Was Your Level Of Alcohol Consumption Prior To ? None [email or web address] Information not available 01/14/2021 Are You Blind Or Do You Have Difficulty Seeing? No [email or web address] Information n ot available 01/14/2021 What Is Your Level Of Caffeine Consumption? Occasional [email or web address] Information not available 01/14/2021 In The 14 Days Before Symptom Onset, Have You Had Close Contact With A Laboratory-confirm ed COVID-19 While That Case Was Ill? No [email or web address] Information n ot available 01/14/2021 In The 14 Days Before Symptom Onset, Have You Had Close Contact With A Person Who Is Under Investigation For COVID-19 While That Person Was Ill? No Information not available 01/14/2021 Have You Been To An Area Known To Be High Risk For COVID-19? No [email or web address] Information not available 01/14/2021 Are You Deaf Or Do You Have Serious Difficulty Hearing? No [email or web address] Information not available 01/14/2021 What Type Of Diet Are You Following? REGULAR Information n ot available 01/14/2021 Have You Ever Been Counseled For Unhealthy Alcohol Use? No [email or web address] Information not available 01/14/2021 Do You Use Your Seat Belt Or Car Seat Routinely? Yes [email or web address] Information not available 01/14/2021 Do You Have Smoke And Carbon Monoxide Detectors In Your Home? Yes [email or web address] Information not available 01/14/2021 Do You Use Sunscreen Routinely? Yes [email or web address] Information not available 01/14/2021 Has Tobacco Cessation Counseling Been Provided? No [email or web address] Information not available 01/14/2021 Sex: Unknown Functional Status Question Answer Note LastModified by Organizat ion Details LastModified Time Do you use any illicit or recreational drugs? No Information not available 01/14/2021 Do you or have you ever used any other forms of tobacco or nicotine? No [email or web address] Information not available 01/14/2021 What is your level of alcohol consumption? Occasional [email or web address] Information not available 01/14/2021 Are you able to walk independently without assistance or assistive devices? YESWOREST [email or web address] Information not available 01/14/2021 What is your exercise level? Occasional [email or web address] Information not available 01/14/2021 Mental Status Question Answer Note LastModified by Organization D etails LastModified Time Do you feel stressed (tense, restless, nervous, or anxious, or unable to sleep at night)? [id number] [email or web address] Information not available 01/14/2021 Family History Relationship Description Onset Age of this Age Resolved Age Notes LastModified by Organization Details LastModified Time Father No current problems or disability [email or web address] Not available 11/24 18:33:35 Mother No current problems or disability [email or web address] Not available 11/24 18:33:35 Medical History Condition [...] ICD10 Code Diagnosis IMO Codes Diagnosis Note [id number] JERRY LEVI MD [facility] [address],[facility] [place] [address] 07/01/2025 15:34:11 07/01/2025 16:25:11 screening 048180607 Z36.89 Gestation period, 24 weeks 587571317 Z3A.24 0408289 - continue PNV Past pregn tangela history of gestational diabetes mellitus 296987612 Z86.32 738712 - GCT at 28 weeks [id number] JERRY LEVI MD [place] [address],[facility] [place] [address] 07/29/2025 09:19:43 07/29/2025 10:06:04 Past history of gestational diabetes mellitus 048837009 O09.299 Z86.32 2932498 - GCT today Gestation period, 28 weeks 22889839 Z3A.28 9913210 - continue PNV Health Concerns Section Related Observation LastModified by Organization Detai ls LastModified Time None Recorded Concern Status LastModified by Organization Details LastModified Time None Recorded Payers Encounter Date Sequence Insurance Name Policy Number Policy Fabian Covered Member ID Fabian Member ID Guarantor Name 07/29/2025 1 [facility] (MEDICAID HMO) [id number] Oscar Elliott [id number] Oscar Elliott Notes Date Note Type Note Provider Name and Address Organization Details Recorded Time 07/29/2025 text/html Generic HPI TemplateReported by Patient JERRY LEVI MD [address], [place], [address], [facility] 07/29/2025 10:02:40 OBGyn Episode Ob Episode Information Episode Created Date Number of Fetuses Patient Bloodtype Patient rh Status Prepregnancy Weight lbs Domestic Partner Domestic Partner Phone Father Name Sales And Service Consultant Status 04/02/20 25 1 A Positive 174 OPEN Fetus Data First Name Last Name Admitted to NICU Weight (g) Sex Living Outcome Pediatric Complications Fetus ID Race Codes Race Delivery Type [id number] Problems Problem Notes Problem Name Start Date End Date Resolution Snomed Code Not e Past history of gestational diabetes mellitus 05/10/2025 527073837 Gestational diabetes mellitus class A1 08/27/2025 63335967 serial nadir wth US Breech presentation 09/18/2025 5332859 footling breech, desires ECV Johann Calculation Initial [...] Sound Latest Days Gestation 06/04/20 25 20 [email or web address] 04/02/2025 10/17/19 26 5 Pre-bushra Flowsheet Flowsheet Date 04/02/2025 Hale Score Blood Edema Fundus Height Fundus Units Glucose Ketones Leukocytes Nitrite Labor Signs Protein Cervic Dilation Cervic Effacement Cervic Station neg none Type Weight in lbs Pre/Post Dialysis Refused Weight 171.049089448818 BP Diastolic BP Location Tested BP Systolic BP Type 76 L arm 110 sitting Fetus Heart Rate Present A Present Fetus Movement A No Comments Patient presents to [facility]. Hx of gestational diabetes [...] Weight in lbs Pre/Post Dialysis Refused Weight 173.201255937858 BP Diastolic BP Location Tested BP Systolic [...] Type Weight in lbs Pre/Post Dialysis Refused 180.250792721217 BP Diastolic BP Location Tested BP Systolic [...] Weight in lbs Pre/Post Dialysis Refused Weight 184.910180423105 BP Diastolic BP Location Tested BP Systolic BP Type 67 L arm 101 sitting Fetus Heart Rate Present A 145 Fetus Movement A Yes Comments Doing well, baby active. No cramping. Had increased vaginal pressure and one episode of spotting on Tuesday, went to [place] and workup was negative. Discussed GCT and labs for next visit. RTC 4 weeks. Flowsheet Date 07/29/2025 Hale Score Blood Edema Fundus Height Fundus Units Glucose Ketones Leukocytes Nitrite Labor Signs Protein Cervic Dilation Cervic Effacement Cervic Station Type Weight in lbs Pre/Post Dialysis Refused 192.758343339991 BP Diastolic BP Location Tested BP Systolic [...] Weight in lbs Pre/Post Dialysis Refused Weight 193.964909506042 BP Diastolic BP Location Tested BP Systolic BP Type 60 L arm 96 sitting Fetus Heart Rate Present A 146 Present Fetus Movement A Yes Comments patient did not attend diabe smiley education. 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 She was counseled [...] Weight in lbs Pre/Post Dialysis Refused Weight 193.143760945754 BP Diastolic BP Location Tested BP Systolic [...] Weight in lbs Pre/Post Dialysis Refused Weight 193.802604362015 BP Diastolic BP Location Tested BP Systolic [...] having decr eased movement, was seen at [place] last night and had reactive NST. [place] [...]
--- OUTSIDE RECORDS SUMMARY | 2025-09-19 23:55 | XMS_ITS | Continuity of Care Document ---
Author Organization [facility] Address [address] [place] [address] Assessment No assessment recorded. Plan of Treatment Reminders Order Date Submit Date Provider Last Modified By Organization Details Last Modified Time Details Appointments OB ROUTINE 2024 01:30P M JERRY LEVI MD Not available Not available Not available SURG MISC 2024 01:30P M JERRY LEVI MD Not available Not available Not available Lab None recorded. Referral None recorded. Procedures None recorded. Surgeries external cephalic version (SURG) 2024 025 [id number] [facility], [address], [place], [address], 09/18/2025 15:05:16 Imaging None recorded. Medication Orders None recorded. Patient TargetsNo targets recorded. Patient InstructionsNo instructions recorded. Reason for Referral None Reported. Results Created Date Observation Date Name Description Value Unit Range Abnormal Flag Note LastModifiedBy Organization Detail LastModifiedTime 04/09/2004/09/2025 [UNIT Y] ANEUP LOIDY NIPT fraction 8.7% normal Not Available Charly wise [address], [place], [address], 04/09/2025 23:26:44 04/09/20 25 04/09/2025 [UNIT Y] ANEUP LOIDY NIPT sex chromosome aneuploidy NOT DETECT ED normal Not Available Jonah contreras [address], [place], [address], 04/09/2025 23:26:44 04/09/20 25 04/09/2025 [UNIT Y] ANEUP LOIDY NIPT monosomy X LOW RISK <1 in 10,000 normal Not Available [facility] [address], [place], [address], 04/09/2025 23:26:44 04/09/20 25 04/09/2025 [UNIT Y] ANEUP LOIDY NIPT trisomy 13 LOW RISK <1 in 10,000 normal Not Available [facility] [address], [place], [address], 04/09/2025 23:26:44 04/09/20 25 04/09/2025 [UNIT Y] ANEUP LOIDY NIPT trisomy 18 LOW RISK <1 in 10,000 normal Not Available [employer] [address], [place], [address], 04/09/2025 23:26:44 04/09/20 25 04/09/2025 [UNIT Y] ANEUP LOIDY NIPT trisomy 21 LOW RISK <1 in 10,000 normal Not Available [facility] [address], [place], [address], 04/09/2025 23:26:44 04/09/20 25 04/09/2025 [UNIT Y] ANEUP LOIDY NIPT sex FEMALE normal Not Available [facility] [address], [place], [address], 04/09/2025 23:26:44 04/09/20 25 04/09/2025 [UNIT Y] ANEUP LOIDY NIPT gestation SINGLE TON normal Not Available [facility] [address], [place], [address], 04/09/2025 23:26:44 04/09/20 25 04/09/2025 [UNIT Y] ANEUP LOIDY NIPT for detailed report, see pdf See PDF normal Not Available [facility] [address], [place], [address], 04/09/2025 23:26:44 04/15/20 25 04/15/2025 [UNIT Y] JOVANY Frey fraction 5.4% normal Not Available Billrebecca castroe [address], [place], [address], 04/15/2025 23:58:47 04/15/20 25 04/15/2025 [UNIT Y] JOVANY Frey sickle cell disease/beta -thalassemia /hemoglobino pathies nipt result LOW RISK < 1 in 3200 normal Not Available [employer] [address], [place], [address], 04/15/2025 23:58:47 04/15/20 25 04/15/2025 [UNIT Y] JOVANY Frey sickle cell disease/beta -thalassemia /hemoglobino pathies carrier screen POSITI VE Sickle cell: c.20A> T (p.Glu 7Val) abnormal Not Available [facility] [address], [place], [address], 04/15/2025 23:58:47 04/15/20 25 04/15/2025 [UNIT Y] JOVANY Frey alpha-thalas semia carrier screen NEGATI VE normal Not Available [facility] [address], [place], [address], 04/15/2025 23:58:47 04/15/20 25 04/15/2025 [UNIT Y] JOVANY Frey cystic fibrosis carrier screen NEGATI VE normal Not Available [facility] [address], [place], [address], 04/15/2025 23:58:47 04/15/20 25 04/15/2025 [UNIT Y] JOVANY Frey spinal muscular atrophy carrier screen NEGATI VE 3 SMN1 copies , SNP presen t normal Not Available [facility] [address], [place], [address], 04/15/2025 23:58:47 04/15/20 25 04/15/2025 [UNIT Y] JOVANY Frey for detailed report, see pdf See PDF normal Not Available [facility] [address], [place], [address], 04/15/2025 23:58:47 04/02/20 25 04/02/2025 HIV 1/2 ANTIG EN/AN TIBOD Y, REFLE X CONFI RMATI ON HIV antigen/anti body Nonrea ctive nonrea ctive HIV-1 antig en and HIV-1 /HIV- 2 antib odies were not detec nhan. No labor atory evide nce of HIV infec tion. Not Available [facility] (Lab) [address], [place], [address], 04/03/2025 12:34:58 04/02/20 25 04/02/2025 HEPAT ITIS B SURFA CE ANTIG EN hepatitis B surface antigen Non-re active non-re active This assay was perfo rmed using [employer] ratio n reage nts and test kits. Value s obtai tunde with other assay metho ds or kits canno t be used inter baez eably . Not Available [facility] (Lab) [address], [place], [address], 04/03/2025 12:34:58 04/02/20 25 04/02/2025 CBC W/DIF F WBC 10.3 10'3/ uL 3.5-10 .5 Not Available [facility] (Lab) [address], [place], [address], 04/03/2025 12:34:59 04/02/20 25 04/02/2025 CBC W/DIF F RBC 3.84 10'6/ uL (based on docume nted legal sex) 3.80-5 .20 Not Available [facility] (Lab) [address] [place], [address], 04/03/2025 12:34:59 04/02/20 25 04/02/2025 CBC W/DIF F HGB 11.8 g/dL (based on docume nted legal sex) 11.6-1 5.4 Not Available [facility] (Lab) [address], [place], [address], 04/03/2025 12:34:59 04/02/20 25 04/02/2025 CBC W/DIF F HCT 34.1 % (based on docume nted legal sex) 34.0-4 5.0 Not Available [facility] (Lab) [address], [place], [address], 04/03/2025 12:34:59 04/02/20 25 04/02/2025 CBC W/DIF F MCV 88.8 fL 80.0-9 9.0 Not Available [facility] (Lab) [address], [place], [address], 04/03/2025 12:34:59 04/02/20 25 04/02/2025 CBC W/DIF F MCH 30.7 pg 27.0-3 4.0 Not Available [facility] (Lab) [address], [place], [address], 04/03/2025 12:34:59 04/02/20 25 04/02/2025 CBC W/DIF F MCHC 34.6 g/dL 32.0-3 5.5 Not Available [facility] (Lab) [address], [place], [address], 04/03/2025 12:34:59 04/02/20 25 04/02/2025 CBC W/DIF F RDW 12.5 % 11.0-1 5.0 Not Available [facility] (Lab) [address], [place], [address], 04/03/2025 12:34:59 04/02/20 25 04/02/2025 CBC W/DIF F plt 267 10'3/ uL 150-40 0 Not Available [facility] (Lab) [address], [place], [address], 04/03/2025 12:34:59 04/02/20 25 04/02/2025 CBC W/DIF F MPV 10.2 fL 8.8-12 .1 Not Available [facility] (Lab) [address], [place], [address], 04/03/2025 12:34:59 04/02/20 25 04/02/2025 CBC W/DIF F NRBC's 0.0 % 0.0 Not Available [facility] (Lab) [address], [place], [address], 04/03/2025 12:34:59 04/02/20 25 04/02/2025 CBC W/DIF F absolute NRBCs 0.0 10'3/ uL no refere nce range establ ished Not Available [facility] (Lab) [address], [place], [address], 04/03/2025 12:34:59 04/02/20 25 04/02/2025 CBC W/DIF F neutrophils 73.5 % 34.0-7 3.0 high Not Available [facility] (Lab) [address], [place], [address], 04/03/2025 12:34:59 04/02/20 25 04/02/2025 CBC W/DIF F lymphocytes 18.6 % 15.0-5 0.0 Not Available [facility] (Lab) [address], [place], [address], 04/03/2025 12:34:59 04/02/20 25 04/02/2025 CBC W/DIF F monocytes 6.1 % 1.0-15 .0 Not Available [facility] (Lab) [address], [place], [address], 04/03/2025 12:34:59 04/02/20 25 04/02/2025 CBC W/DIF F eosinophils 1.3 % 0.0-8. 0 Not Available [facility] (Lab) [address], [place], [address], 04/03/2025 12:34:59 04/02/20 25 04/02/2025 CBC W/DIF F basophils 0.2 % 0.0-2. 0 Not Available [facility] (Lab) [address], [place], [address], 04/03/2025 12:34:59 04/02/20 25 04/02/2025 CBC W/DIF [...] separ ately if prese nt. Not Available [facility] (Lab) [address], [place], [address], 04/03/2025 12:34:59 04/02/20 25 04/02/2025 CBC W/DIF F absolute neutrophils 7.6 10'3/ uL 1.5-8. 0 Not Available [facility] (Lab) [address], [place], [address], 04/03/2025 12:34:59 04/02/20 25 04/02/2025 CBC W/DIF F absolute lymphocytes 1.9 10'3/ uL 1.0-4. 0 Not Available [facility] (Lab) [address], [place], [address], 04/03/2025 12:34:59 04/02/20 25 04/02/2025 CBC W/DIF F absolute monocytes 0.6 10'3/ uL 0.2-1. 0 Not Available [facility] (Lab) [address], [place], [address], 04/03/2025 12:34:59 04/02/20 25 04/02/2025 CBC W/DIF F absolute eosinophils 0.1 10'3/ uL 0.0-0. 6 Not Available [facility] (Lab) [address], [place], [address], 04/03/2025 12:34:59 04/02/20 25 04/02/2025 CBC W/DIF F absolute basophils 0.0 10'3/ uL 0.0-0. 3 Not Available [facility] (Lab) [address], [place], [address], 04/03/2025 12:34:59 04/02/20 25 04/02/2025 CBC W/DIF F absolute immature granulocytes 0.0 10'3/ uL 0.00-0 .10 Refer ence range s for nonbi nary/ inter sex or unspe cifie d gende r patie nts have not been estab lishe d. Pleas e refer to the [facility] for range s estab lishe d for cisge nder patie nts and evalu ate in the clini fady rajan xt of the indiv idual patie nt: https ://la bhand book. nm.or g/gen derx Not Available [facility] (Lab) [address], [place], [address], 04/03/2025 12:34:59 04/02/20 25 04/02/2025 HEPAT ITIS C ANTIB CHER SCREE N, REFLE X TO CONFI RMATI ON hepatitis C antibody Non-re active non-re active Antib odies to HCV Not Detec nhan, does not exclu de the possi bilit y of expos ure to HCV. Not Available [facility] (Lab) [address], [place], [address], 04/03/2025 12:34:59 04/02/20 25 04/02/2025 RUBEL LA IGG ANTIB CHER, QUANT rubella antibodies, IgG Reacti ve reacti ve Not Available [facility] (Lab) [address], [place], [address], 04/03/2025 12:34:59 04/02/20 25 04/02/2025 RUBEL LA IGG ANTIB CHER, QUANT rubella antibodies, IgG quant 20.7 IU/mL >=10 Non-r eacti ve (Non- Immun e) <10 IU/mL React nicholas (Immu ne) > or = 10 IU/mL Not Available [facility] (Lab) [address], [place], [address], 04/03/2025 12:34:59 04/02/20 25 04/02/2025 TYPE/ RH/SC REEN ABO/Rh type A POS Not Available [facility] (Lab) [address], [place], [address], 04/03/2025 12:35:00 04/02/20 25 04/02/2025 TYPE/ RH/SC REEN antibody screen NEG Not Available [facility] (Lab) [address], [place], [address], 04/03/2025 12:35:00 04/02/20 25 04/02/2025 TYPE/ RH/SC REEN exp date 2024 23:59 Not Available [facility] (Lab) [address], [place], [address], 04/03/2025 12:35:00 04/02/20 25 04/02/2025 HEMOG LOBIN A1C hemoglobin A1C 4.5 % 4.0-5. 6 The Ameri can [employer]abe smiley [employer] iatio n recom mends that a prima ry goal of thera py nissa d be a HBA1C of < 7% and that physi cians shoul d reeva luate the treat ment regim en in patie nts with HBA1C value s consi stent ly > 8%. <5.7% Jerica l 5.7 - 6.4% Incre ased risk for diabe smiley >=6.5 % Diagn ostic of diabe smiley <7.0% Goal of thera py >8.0% Actio n sugge sted Not Available [facility] (Lab) [address], [place], [address], 04/03/2025 12:35:00 04/02/2004/02/2025 RPR SCREE N, REFLE X TITER /CONF IRMAT ION RPR qualitative Nonrea ctive nonrea ctive Not Available [facility] (Lab) [address], [place], [address], 04/03/2025 12:35:01 06/04/20 25 06/04/2025 CT/GC AND TRICH OMONA S VAGIN DARÍO (RRNA ), URINE chlamydia trachomatis, PCR Negati ve negati ve Not Available [facility] (Lab) [address], [place], [address], 06/06/2025 00:50:21 06/04/2006/04/2025 CT/GC AND TRICH OMONA S VAGIN DARÍO (RRNA ), URINE neisseria gonorrhoeae, PCR Negati ve negati ve Not Available [facility] (Lab) [address], [place], [address], 06/06/2025 00:50:21 06/04/2006/04/2025 CT/GC AND TRICH OMONA S VAGIN DARÍO (RRNA ), URINE trichomonas vaginalis ribosomal RNA (rrna) Negati ve negati ve Not Available [facility] (Lab) [address] [place], [address], 06/06/2025 00:50:21 06/04/2006/04/2025 CULTU RE: URINE result report SEE RESULT S BELOW Test: Cultu re: Urine Speci men Sourc e: Urine - Clean Catch Speci men Type: Urine Speci men Date: 1121 Resul t Date: 2346 Resul t Statu s: Final resul t Abnor mal: No Resul ting Lab: [facility] [address] [facility] [address] Tel: [phone] CULTU RE ----- ----- ----- --- No growt h in 1 day (dete ction level of 10,00 0 colon ies / ml.) Not Available [facility] (Lab) [address], [place], [address], 06/06/2025 00:50:22 04/02/20 25 04/02/2025 US, obste tric, nucha l trans lucen cy No observ ation record ed. [facility] [address], [place], [address], 04/02/2025 18:12:46 04/02/20 25 04/02/2025 US, obste tric, nucha l trans lucen cy No observ ation record ed. [email or web address] Renée [address], [place], [address], 04/03/2025 09:42:47 06/04/20 25 06/04/2025 US, obste tric, 2nd or 3rd trime ster No observ ation record ed. [facility] [address], [place], [address], 06/04/2025 12:59:14 06/04/20 25 06/04/2025 US, obste tric, 2nd or 3rd trime ster No observ ation record ed. [email or web address] Renée [address], [place], [address], 06/05/2025 15:57:49 06/29/20 25 06/29/2025 US, obste tric, limit ed No observ ation record ed. [address] [place] [address], [address], 07/03/2025 15:41:17 06/29/20 25 06/29/2025 US, obste tric, limit ed No observ ation record ed. [place] [id number] [facility] [address], [place], [address], 07/03/2025 15:40:37 07/30/2007/30/2025 non-s tress test No observ ation record ed. [address] [facility] [address], [place], [address], 07/31/2025 15:49:44 08/27/20 25 08/27/2025 US, obste tric, follo w-up No observ ation record ed. [facility] [address], [place], [address], 08/27/2025 18:12:06 08/27/2008/27/2025 US, obste tric, follo w-up No observ ation record ed. ARIEL Chinchilla [address], [place], [address], 09/06/2025 13:26:38 09/12/2009/12/2025 non-s tress test No observ ation record ed. [address], [place], [address], 09/17/2025 10:35:29 09/18/2009/17/2025 imagi ng/di agnos tic resul t No observ ation record ed. [address], [place], [address], 09/18/2025 09:59:20 09/18/2009/18/2025 US, obste tric, follo w-up No observ ation record ed. [email or web address] [facility] [address], [place], [address], 09/18/2025 13:44:01 09/18/20 25 09/18/2025 US, risa kee, bioph ysica l profi le No observ ation record ed. [email or web address] [facility] [address], [place], [address], 09/18/2025 13:44:13 09/18/20 25 09/18/2025 US, obste tric, follo w-up No observ ation record ed. [email or web address] Renée [address], [place], [address], 09/18/2025 13:07:33 Result Notes None recorded. Problems Name Problem SNOMED Code Status Onset Date Resolution Date Notes Provider Name and Address Organization Details Recorded Time Attentio n deficit hyperact ivity disorder 742940010 Completed No meds Aleena rangel, [facility] 12:17:26 Acute depressi on 390234547 Completed To start zoloft 25mg Aleena juan [facility] 12:17:26 Alpha-fe toprotei n above referenc e range 405209986 Completed [facility] 01/21 - No evidence of NTD from [facility] u/s, but incomple te. [facility] U/S 02/14/21. NSTs & serial growth @ 32 wks - [facility]26 Pruritic urticari al papules and plaques of pregnanc y 76524471 Completed steroid cream Aleena rangel [facility] 12:17:26 Pregnanc y 67468026 Completed 202006/25/2021 SO Shoemaker [facility], [facility] 5 17:55:10 Pregnanc y 97581899 Active 2024 SO Shoemaker [facility] 5 17:55:10 Past pregnanc y history of gestatio nal diabetes mellitus 760900421 Active 2024 JERRY LEVI MD [address], [place], [address], [facility] 5 11:07:10 Gestatio nal diabetes mellitus class A1 74923289 Active 2024 serial growth JERRY LEVI MD [address], [place], [address], [facility] 5 16:38:45 Breech presenta tion 9953493 Active 2024 footling breech, desires ECV JERRY LEVI MD [address], [place], [address], [facility] 5 14:03:22 Problem Notes None recorded. Procedures Surgical History Date Name Laterality Status Provider Name and Address Organization Details Recorded Time 3 Dilation and Curettage completed Tiff Ramesh [facility] 03/07/2025 17:49:40 0 Date of Last Pap Smear completed Brianne Sampson [facility] 04/15/2021 10:16:56 0 Dilation and Curettage completed Adriana Orozco [facility] 02/11/2021 19:34:56 Imaging Results None recorded. Procedure Notes None recorded. Medical Equipment None Reported. Allergies Allergen ID Allergen Name Allergen Category Reaction Reaction Severity Criticality Documentation Date Start Date Code Code System Note Provider Name and Address Organization Details Recorded Time 75576 latex environme nt,medica tion swelling Not available high 08/16/20252021 62051 91 RxNorm React ion: Not Available ariel [...] Updated DateTime 09/18/2025 170.18 cm LUCINA BALLARD [facility] 09/18/2025 12:59:12 Social History Question Answer Notes LastModified by Organizat ion Details LastModified Time Tobacco Smoking Status Never Smoker Brianne Sampson juan carlos, [facility] 11/24/2020 18:33:42 If You Are , What Was Your Level Of Alcohol Consumption Prior To ? None [email or web address] Information not available 01/14/2021 Are You Blind Or Do You Have Difficulty Seeing? No Information n ot available 01/14/2021 What Is Your Level Of Caffeine Consumption? Occasional [email or web address] Information not available 01/14/2021 In The 14 Days Before Symptom Onset, Have You Had Close Contact With A Laboratory-confirm ed COVID-19 While That Case Was Ill? No [email or web address] Information n ot available 01/14/2021 In The 14 Days Before Symptom Onset, Have You Had Close Contact With A Person Who Is Under Investigation For COVID-19 While That Person Was Ill? No [email or web address] Information not available 01/14/2021 Have You Been To An Area Known To Be High Risk For COVID-19? No [email or web address] Information not available 01/14/2021 Are You Deaf Or Do You Have Serious Difficulty Hearing? No [email or web address] Information not available 01/14/2021 What Type Of Diet Are You Following? REGULAR [email or web address] Information n ot available 01/14/2021 Have You Ever Been Counseled For Unhealthy Alcohol Use? No [email or web address] Information not available 01/14/2021 Do You Use Your Seat Belt Or Car Seat Routinely? Yes [email or web address] Information not available 01/14/2021 Do You Have Smoke And Carbon Monoxide Detectors In Your Home? Yes [email or web address] Information not available 01/14/2021 Do You Use Sunscreen Routinely? Yes [email or web address] Information not available 01/14/2021 Has Tobacco Cessation Counseling Been Provided? No Information not available 01/14/2021 Sex: Unknown Functional Status Question Answer Note LastModified by Organizat ion Details LastModified Time Do you use any illicit or recreational drugs? No [email or web address] Information not available 01/14/2021 Do you or have you ever used any other forms of tobacco or nicotine? No [email or web address] Information not available 01/14/2021 What is your level of alcohol consumption? Occasional [email or web address] Information not available 01/14/2021 Are you able to walk independently without assistance or assistive devices? YESWOREST [email or web address] Information not available 01/14/2021 What is your exercise level? Occasional [email or web address] Information not available 01/14/2021 Mental Status Question Answer Note LastModified by Organization D etails LastModified Time Do you feel stressed (tense, restless, nervous, or anxious, or unable to sleep at night)? [id number] [email or web address] Information not available 01/14/2021 Family History Relationship Description Onset Age of this Age Resolved Age Notes LastModified by Organization Details LastModified Time Father No current problems or disability [email or web address] Not available 11/24 18:33:35 Mother No current problems or disability [email or web address] Not available 11/24 18:33:35 Medical History Condition [...] ICD10 Code Diagnosis IMO Codes Diagnosis Note [id number] JERRY LEVI MD [facility] [address] [address] 08/23/2025 16:39:37 08/24/2025 08:01:43 Gestational diabetes mellitus 40141385 O24.410 59001214 - well controlled with diet, did not start insulin- continue glucose monitoring - serial growth US Gestation period, 32 weeks 5086289 Z3A.32 6853800 - continue PNV [id number] JERRY LEVI MD [place] [address],[place] [address] 08/27/2025 14:57:39 08/27/2025 15:28:35 Gestational diabetes mellitus 19613278 O24.410 Z3A.32 91755432 - well controlled with diet, did not start insulin- continue glucose monitoring - serial growth [id number] JERRY LEVI MD [place] [address],[place] [address] 08/27/2025 14:58:21 08/27/2025 16:49:27 Gestational diabetes mellitus class A1 07894142 O24.410 32163 - well controlled with diet, did not start insulin- continue glucose monitoring - serial growth US Gestation period, 32 weeks 1327409 Z3A.32 7769917 - continue PNV [id number] JERRY LEVI MD [place] [address],[place] [address] 09/18/2025 12:32:59 09/18/2025 13:07:52 Gestational diabetes mellitus 69353647 O24.410 O36.8130 Z3A.35 17888437 [id number] JERRY LEVI MD [place] [address] [address] 09/18/2025 12:33:26 09/18/2025 14:13:18 Gestational diabetes mellitus class A1 26983822 O24.410 83942 - well controlled with diet, did not start insulin- continue glucose monitoring - serial growth US Breech presentation 6096 002 O32.1XX0 31304313 - footling breech- discussed r/b of ECV vs PCS; desires ECV Gestation period, 35 weeks 79278046 Z3A.35 0343906 Health Concerns Section Related Observation LastModified by Organization Detai ls LastModified Time None Recorded Concern Status LastModified by Organization Details LastModified Time None Recorded Payers Encounter Date Sequence Insurance Name Policy Number Policy Fabian Covered Member ID Fabian Member ID Guarantor Name 09/18/2025 1 [facility] [id number] Chalyn E Everage [id number] Chalyn R Everage 09/18/2025 2 [place] [employer] Chalyn R Everage [id number] Chalyn R Everage Notes Date Note Type Note Provider Name and Address Organization Details Recorded Time 09/18/2025 text/html Generic HPI TemplateReported by Patient JERRY LEIV MD [address], [place], [address], [facility] 09/18/2025 14:04:38 OBGyn Episode Ob Episode Information Episode Created Date Number of Fetuses Patient Bloodtype Patient rh Status Prepregnancy Weight lbs Domestic Partner Domestic Partner Phone Father Name Armature Tester Status 04/02/20 25 1 A Positive 174 OPEN Fetus Data First Name Last Name Admitted to NICU Weight (g) Sex Living Outcome Pediatric Complications Fetus ID Race Codes Race Delivery Type [id number] Problems Problem Notes Problem Name Start Date End Date Resolution Snomed Code Not e Past history of gestational diabetes mellitus 05/10/2025 [id number] Gestational diabetes mellitus class A1 08/27/2025 [id number] serial nadir wth US Breech presentation 09/18/2025 [id number] footling breech, desires ECV Johann Calculation Initial [...] Sound Latest Days Gestation 06/04/20 25 20 [email or web address] 04/02/2025 10/17/19 26 5 Pre- Flowsheet Flowsheet Date 04/02/2025 Hale Score Blood Edema Fundus Height Fundus Units Glucose Ketones Leukocytes Nitrite Labor Signs Protein Cervic Dilation Cervic Effacement Cervic Station neg none Type Weight in lbs Pre/Post Dialysis Refused Weight 171.287917393903 BP Diastolic BP Location Tested BP Systolic BP Type 76 L arm 110 sitting Fetus Heart Rate Present A Present Fetus Movement A No Comments Patient presents to [facility] care. Hx of gestational diabetes [...] Weight in lbs Pre/Post Dialysis Refused Weight 173.151160613646 BP Diastolic BP Location Tested BP Systolic [...] Type Weight in lbs Pre/Post Dialysis Refused 180.590496586443 BP Diastolic BP Location Tested BP Systolic [...] Weight in lbs Pre/Post Dialysis Refused Weight 184.052261808646 BP Diastolic BP Location Tested BP Systolic BP Type 67 L arm 101 sitting Fetus Heart Rate Present A 145 Fetus Movement A Yes Comments Doing well, baby active. No cramping. Had increased vaginal pressure and one episode of spotting on Tuesday, went to [place] and workup was negative. Discussed GCT and labs for next visit. RTC 4 weeks. Flowsheet Date 07/29/2025 Hale Score Blood Edema Fundus Height Fundus Units Glucose Ketones Leukocytes Nitrite Labor Signs Protein Cervic Dilation Cervic Effacement Cervic Station Type Weight in lbs Pre/Post Dialysis Refused 192.437342823634 BP Diastolic BP Location Tested BP Systolic [...] Weight in lbs Pre/Post Dialysis Refused Weight 193.684734565303 BP Diastolic BP Location Tested BP Systolic BP Type 60 L arm 96 sitting Fetus Heart Rate Present A 146 Present Fetus Movement A Yes Comments patient did not attend diabe smiley education. 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 She was counseled [...] Weight in lbs Pre/Post Dialysis Refused Weight 193.133984841696 BP Diastolic BP Location Tested BP Systolic [...] Weight in lbs Pre/Post Dialysis Refused Weight 193.643542683691 BP Diastolic BP Location Tested BP Systolic [...] footling breech presentation (changed from transverse), BPP 05/10. EFW 30%. Discussed footling breech presentation and [...]
--- OUTSIDE RECORDS SUMMARY | 2025-09-19 23:55 | XMS_ITS | Clinical Summary ---
Author Organization [facility] Address [address] [place] [address] Phone Care Team Providers Care Reel Slitter Name Role Phone PutnamSoledad APRN, CNM Primary Care Provider Allergies No known [...] : Muscle Spasm 15 Tablet 10/03/2024 Active Social History Tobacco Use Types Packs/Day Years [...] Comments Blood Pressure 112/64 10/03/2024 8:33 PM [facility] Pulse 80 10/03/2024 8:33 PM [employer] Temperature 36.6 C (97.9 F) 10/03/2024 8:33 PM [facility] [employer]NIT[facility] Respiratory Rate 18 10/03/2024 8:33 PM [employer] KNITTER Oxygen Saturation 100% 10/03/2024 8:33 PM [employer] KNITTER Inhaled Oxygen Concentration - - Weight 73 kg (161 lb) 10/03/2024 5:32 PM [employer]ICAL E[employer] KNITTER Height 160 cm (5' 3) 10/03/2024 5:32 PM [employer] KNITTER Body Mass Index 28.52 10/03/2024 5:32 PM [employer] KNITTER Plan of Treatment Health Maintenance Due Date Last Done Comments Pap Smear 2017 Influenza Immunization (#1) 2025 SARS-COV-2 Immunization (2024- season) 2025 Respiratory Syncytial Virus (RSV) Immunization (Adult) (1 - 1-dose 75+ series) 2071 Hepatitis B Immunization Completed 997, 1996, 1996 Meningococcal Immunization (ACWY) Aged Out 06/16/2009 No longer eligible based on patient's age to complete this topic Varicella Immunization Completed 06/16/2009, 1997 Human Papillomavirus (HPV) Immunization Completed 05/14/2011, 06/16/2009, 06/19/2007 DTaP/Tdap/Td Immunization Discontinued 2022, [...] Procedure Name Priority Date/Time Associated Diagnosis Comments HEPATITIS C ANTIBODY STAT 01/20/2024 1:26 PM CDT from Last 3 Months or Most Recently Relevant to Health Maintenance Results * Hepatitis C Antibody (01/20/2024 1:26 PM CDT) hepatitis C antibody 0.11 <1 S/CO 01/20/2024 10:45 PM CDT [facility] Comment: Signal/Cutoff ratio < 0.79 is Nondetected Signal/Cutoff ratio 0.80-0.99 is Grayzone Signal/Cutoff ratio > 0.99 is Detected Supplemental assays are recommended if signal/cutoff ratio is >/=1.00. Signal/cutoff ratio result >/= 5.00 is 97% predictive of positivity for recombinant immunoblot assay (RIBA) and will be reported to the [place] Department [facility] Public [facility] as required. Blood Venipuncture / Unknown 01/20/2024 1:26 PM CDT 01/20/2024 1:39 PM CDT us Nazanin Oconnell PAC CHEMISTRY ORDERABLES Final R esult [facility] [address] [place] [address], [place] from Last 3 Months or Most Recently Relevant to Health Maintenance Insurance [facility] Care Teams Reel Slitter Relationship Specialty Start Date End Date Soledad Smith APRN, MICHELL [address] [place], [place] [id number] PCP - General Certified Nurse Substance Abuse Therapist 07/07/22
--- OUTSIDE RECORDS SUMMARY | 2025-09-19 23:55 | XMS_ITS | Continuity of Care Document ---
Author Organization [facility] Address [address] [place] [address] Assessment Encounter Date Assessment Date Assessment LastModified by Organization Details LastModified Time 08/16/2025 08/16/2025 Patient is ___weeks . Discussed plan. [email or web address] Not available 08/16/2025 16:19:09 Plan of Treatment Reminders Order Date Submit [...] Not Available Charly wise [address], [place], [address], 04/09/2025 23:26:44 04/09/20 25 04/09/2025 [UNIT Y] ANEUP LOIDY NIPT sex chromosome aneuploidy NOT DETECT ED normal Not Available Jonah contreras [address], [place], [address], 04/09/2025 23:26:44 04/09/20 25 04/09/2025 [UNIT Y] ANEUP LOIDY NIPT monosomy X LOW RISK <1 in 10,000 normal Not Available [facility] [address], [place], [address], 04/09/2025 23:26:44 04/09/20 25 04/09/2025 [UNIT Y] ANEUP LOIDY NIPT trisomy 13 LOW RISK <1 in 10,000 normal Not Available [facility] [address], [place], [address], 04/09/2025 23:26:44 04/09/20 25 04/09/2025 [UNIT Y] ANEUP LOIDY NIPT trisomy 18 LOW RISK <1 in 10,000 normal Not Available [facility] [address], [place], [address], 04/09/2025 23:26:44 04/09/20 25 04/09/2025 [UNIT Y] ANEUP LOIDY NIPT trisomy 21 LOW RISK <1 in 10,000 normal Not Available [facility] [address], [place], [address], 04/09/2025 23:26:44 04/09/20 25 04/09/2025 [UNIT Y] ANEUP LOIDY NIPT sex FEMALE normal Not Available [facility] [address], [place], [address], 04/09/2025 23:26:44 04/09/20 25 04/09/2025 [UNIT Y] ANEUP LOIDY NIPT gestation SINGLE TON normal Not Available [facility] [address], [place], [address], 04/09/2025 23:26:44 04/09/20 25 04/09/2025 [UNIT Y] ANEUP LOIDY NIPT for detailed report, see pdf See PDF normal Not Available [facility] [address], [place], [address], 04/09/2025 23:26:44 04/15/20 25 04/15/2025 [UNIT Y] JOVANY Frey fraction 5.4% normal Not Available [facility]arly wise [address], [place], [address], 04/15/2025 23:58:47 04/15/20 25 04/15/2025 [UNIT Y] JOVANY Frey sickle cell disease/beta -thalassemia /hemoglobino pathies nipt result LOW RISK < 1 in 3200 normal Not Available [facility] [address], [place], [address], 04/15/2025 23:58:47 04/15/20 25 04/15/2025 [UNIT Y] JOVANY Frey sickle cell disease/beta -thalassemia /hemoglobino pathies carrier screen POSITI VE Sickle cell: c.20A> T (p.Glu 7Val) abnormal Not Available [facility] [address], [place], [address], 04/15/2025 23:58:47 04/15/20 25 04/15/2025 [UNIT Y] JOVANY Frey alpha-thalas semia carrier screen NEGATI VE normal Not Available [facility] [address], [place], [address], 04/15/2025 23:58:47 04/15/20 25 04/15/2025 [UNIT Y] JOVANY Frey cystic fibrosis carrier screen NEGATI VE normal Not Available [facility] [address], [place], [address], 04/15/2025 23:58:47 04/15/20 25 04/15/2025 [UNIT Y] JOVANY Frey spinal muscular atrophy carrier screen NEGATI VE 3 SMN1 copies , SNP presen t normal Not Available [facility] [address], [place], [address], 04/15/2025 23:58:47 04/15/20 25 04/15/2025 [UNIT Y] JOVANY Frey for detailed report, see pdf See PDF normal Not Available [facility] [address], [place], [address], 04/15/2025 23:58:47 04/02/20 25 04/02/2025 HIV 1/2 ANTIG EN/AN TIBOD Y, REFLE X CONFI RMATI ON HIV antigen/anti body Nonrea ctive nonrea ctive HIV-1 antig en and HIV-1 /HIV- 2 antib odies were not detec nhan. No labor atory evide nce of HIV infec tion. Not Available [facility] (Lab) [address], [place], [address], 04/03/2025 12:34:58 04/02/20 25 04/02/2025 HEPAT ITIS B SURFA CE ANTIG EN hepatitis B surface antigen Non-re active non-re active This assay was perfo rmed using [employer] ratio n reage nts and test kits. Value s obtai tunde with other assay metho ds or kits canno t be used inter baez eably . Not Available [facility] (Lab) [address], [place], [address], 04/03/2025 12:34:58 04/02/20 25 04/02/2025 CBC W/DIF F WBC 10.3 10'3/ uL 3.5-10 .5 Not Available [facility] (Lab) [address], [place], [address], 04/03/2025 12:34:59 04/02/20 25 04/02/2025 CBC W/DIF F RBC 3.84 10'6/ uL (based on docume nted legal sex) 3.80-5 .20 Not Available [facility] (Lab) [address], [place], [address], 04/03/2025 12:34:59 04/02/20 25 04/02/2025 CBC W/DIF F HGB 11.8 g/dL (based on docume nted legal sex) 11.6-1 5.4 Not Available [facility] (Lab) [address], [place], [address], 04/03/2025 12:34:59 04/02/20 25 04/02/2025 CBC W/DIF F HCT 34.1 % (based on docume nted legal sex) 34.0-4 5.0 Not Available [facility] (Lab) [address], [place], [address], 04/03/2025 12:34:59 04/02/20 25 04/02/2025 CBC W/DIF F MCV 88.8 fL 80.0-9 9.0 Not Available [facility] (Lab) [address], [place], [address], 04/03/2025 12:34:59 04/02/20 25 04/02/2025 CBC W/DIF F MCH 30.7 pg 27.0-3 4.0 Not Available [facility] (Lab) [address], [place], [address], 04/03/2025 12:34:59 04/02/20 25 04/02/2025 CBC W/DIF F MCHC 34.6 g/dL 32.0-3 5.5 Not Available [facility] (Lab) [address], [place], [address], 04/03/2025 12:34:59 04/02/20 25 04/02/2025 CBC W/DIF F RDW 12.5 % 11.0-1 5.0 Not Available [facility] (Lab) [address], [place], [address], 04/03/2025 12:34:59 04/02/20 25 04/02/2025 CBC W/DIF F plt 267 10'3/ uL 150-40 0 Not Available [facility] (Lab) [address], [place], [address], 04/03/2025 12:34:59 04/02/20 25 04/02/2025 CBC W/DIF F MPV 10.2 fL 8.8-12 .1 Not Available [facility] (Lab) [address], [place], [address], 04/03/2025 12:34:59 04/02/20 25 04/02/2025 CBC W/DIF F NRBC's 0.0 % 0.0 Not Available [facility] (Lab) [address], [place], [address], 04/03/2025 12:34:59 04/02/20 25 04/02/2025 CBC W/DIF F absolute NRBCs 0.0 10'3/ uL no refere nce range establ ished Not Available [facility] (Lab) [address], [place], [address], 04/03/2025 12:34:59 04/02/20 25 04/02/2025 CBC W/DIF F neutrophils 73.5 % 34.0-7 3.0 high Not Available [facility] (Lab) [address], [place], [address], 04/03/2025 12:34:59 04/02/20 25 04/02/2025 CBC W/DIF F lymphocytes 18.6 % 15.0-5 0.0 Not Available [facility] (Lab) [address], [place], [address], 04/03/2025 12:34:59 04/02/20 25 04/02/2025 CBC W/DIF F monocytes 6.1 % 1.0-15 .0 Not Available [facility] (Lab) [address], [place], [address], 04/03/2025 12:34:59 04/02/20 25 04/02/2025 CBC W/DIF F eosinophils 1.3 % 0.0-8. 0 Not Available [facility] (Lab) [address], [place], [address], 04/03/2025 12:34:59 04/02/20 25 04/02/2025 CBC W/DIF F basophils 0.2 % 0.0-2. 0 Not Available [facility] (Lab) [address], [place], [address], 04/03/2025 12:34:59 04/02/20 25 04/02/2025 CBC W/DIF [...] separ ately if prese nt. Not Available [facility] (Lab) [address], [place], [address], 04/03/2025 12:34:59 04/02/20 25 04/02/2025 CBC W/DIF F absolute neutrophils 7.6 10'3/ uL 1.5-8. 0 Not Available [facility] (Lab) [address], [place], [address], 04/03/2025 12:34:59 04/02/20 25 04/02/2025 CBC W/DIF F absolute lymphocytes 1.9 10'3/ uL 1.0-4. 0 Not Available [facility] (Lab) [address], [place], [address], 04/03/2025 12:34:59 04/02/20 25 04/02/2025 CBC W/DIF F absolute monocytes 0.6 10'3/ uL 0.2-1. 0 Not Available [facility] (Lab) [address], [place], [address], 04/03/2025 12:34:59 04/02/20 25 04/02/2025 CBC W/DIF F absolute eosinophils 0.1 10'3/ uL 0.0-0. 6 Not Available [facility] (Lab) [address], [place], [address], 04/03/2025 12:34:59 04/02/20 25 04/02/2025 CBC W/DIF F absolute basophils 0.0 10'3/ uL 0.0-0. 3 Not Available [facility] (Lab) [address], [place], [address], 04/03/2025 12:34:59 04/02/20 25 04/02/2025 CBC W/DIF [...] bhand book. nm.or g/gen derx Not Available [facility] (Lab) [address], [place], [address], 04/03/2025 12:34:59 04/02/20 25 04/02/2025 HEPAT ITIS C ANTIB CHER SCREE N, REFLE X TO CONFI RMATI ON hepatitis C antibody Non-re active non-re active Antib odies to HCV Not Detec nhan, does not exclu de the possi bilit y of expos ure to HCV. Not Available [facility] (Lab) [address], [place], [address], 04/03/2025 12:34:59 04/02/2004/02/2025 RUBEL LA IGG ANTIB CHER, QUANT rubella antibodies, IgG Reacti ve reacti ve Not Available [facility] (Lab) [address], [place], [address], 04/03/2025 12:34:59 07/01/20 25 04/02/2025 RUBEL LA IGG ANTIB CHER, QUANT rubella antibodies, IgG quant 20.7 IU/mL >=10 Non-r eacti ve (Non- Immun e) <10 IU/mL React nicholas (Immu ne) > or = 10 IU/mL Not Available [facility] (Lab) [address] , [place], [address], 04/03/2025 12:34:59 04/02/20 25 04/02/2025 TYPE/ RH/SC REEN ABO/Rh type A POS Not Available [facility] (Lab) [address], [place], [address], 04/03/2025 12:35:00 04/02/20 25 04/02/2025 TYPE/ RH/SC REEN antibody screen NEG Not Available [facility] (Lab) [address], [place], [address], 04/03/2025 12:35:00 04/02/20 25 04/02/2025 TYPE/ RH/SC REEN exp date 2024 23:59 Not Available [facility] (Lab) [address], [place], [address], 04/03/2025 12:35:00 04/02/20 25 04/02/2025 HEMOG LOBIN [...] >8.0% Actio n sugge sted Not Available [facility] (Lab) [address], [place], [address], 04/03/2025 12:35:00 04/02/20 25 04/02/2025 RPR SCREE N, REFLE X TITER /CONF IRMAT ION RPR qualitative Nonrea ctive nonrea ctive Not Available [facility] (Lab) [address], [place], [address], 04/03/2025 12:35:01 06/04/20 25 06/04/2025 CT/GC AND TRICH OMONA S VAGIN DARÍO (RRNA ), URINE chlamydia trachomatis, PCR Negati ve negati ve Not Available [facility] (Lab) [address], [place], [address], 06/06/2025 00:50:21 06/04/20 25 06/04/2025 CT/GC AND TRICH OMONA S VAGIN DARÍO (RRNA ), URINE neisseria gonorrhoeae, PCR Negati ve negati ve Not Available [facility] (Lab) [address], [place], [address], 06/06/2025 00:50:21 06/04/2006/04/2025 CT/GC AND TRICH OMONA S VAGIN DARÍO (RRNA ), URINE trichomonas vaginalis ribosomal RNA (rrna) Negati ve negati ve Not Available [facility] (Lab) [address] [place], [address], 06/06/2025 00:50:21 06/04/2006/04/2025 CULTU RE: URINE result report SEE RESULT S BELOW Test: Cultu re: Urine Speci men Sourc e: Urine - Clean Catch Speci men Type: Urine Speci men Date: 1121 Resul t Date: 2346 Resul t Statu s: Final resul t Abnor mal: No Resul ting Lab: [facility] [address] [facility] [address] Tel: CULTU RE ----- ----- ----- --- No growt h in 1 day (dete ction level of 10,00 0 colon ies / ml.) Not Available [facility] (Lab) [address], [place], [address], 06/06/2025 00:50:22 04/02/20 25 04/02/2025 US, obste tric, nucha l trans lucen cy No observ ation record ed. [facility] [address], [place], [address], 04/02/2025 18:12:46 04/02/20 25 04/02/2025 US, obste tric, nucha l trans lucen cy No observ ation record ed. [email or web address] Renée [address], [place], [address], 04/03/2025 09:42:47 06/04/20 25 06/04/2025 US, obste tric, 2nd or 3rd trime ster No observ ation record ed. [facility] [address], [place], [address], 06/04/2025 12:59:14 06/04/20 25 06/04/2025 US, obste tric, 2nd or 3rd trime ster No observ ation record ed. Renée [address], [place], [address], 06/05/2025 15:57:49 06/29/20 25 06/29/2025 US, obste tric, limit ed No observ ation record ed. [address], [place], [address], 07/03/2025 15:41:17 06/29/20 25 06/29/2025 US, obste tric, limit ed No observ ation record ed. [address] [facility] [address], [place], [address], 07/03/2025 15:40:37 07/30/2007/30/2025 non-s tress test No observ ation record ed. [place] [id number] [facility] [address], [place], [address], 07/31/2025 15:49:44 08/27/2008/27/2025 US, obste tric, follo w-up No observ ation record ed. [email or web address] [address], [place], [address], 08/27/2025 18:12:06 08/27/2008/27/2025 US, obste tric, follo w-up No observ ation record ed. ARIEL Renée [address], [place], [address], 09/06/2025 13:26:38 09/12/2009/12/2025 non-s tress test No observ ation record ed. [address], [place], [address], 09/17/2025 10:35:29 09/18/2009/17/2025 imagi ng/di agnos tic resul t No observ ation record ed. [address], [place], [address], 09/18/2025 09:59:20 09/18/2009/18/2025 US, obste tric, follo w-up No observ ation record ed. [email or web address] [place] [address], [place], [address], 09/18/2025 13:44:01 09/18/20 25 09/18/2025 US, risa kee, bioph ysica l profi le No observ ation record ed. [email or web address] [place] [address], [place], [address], 09/18/2025 13:44:13 12/17/20 25 09/18/2025 US, obste tric, follo w-up No observ ation record ed. [email or web address] Renée [address], [place], [address], 09/18/2025 13:07:33 Result Notes None recorded. Problems Name Problem SNOMED Code Status Onset Date Resolution Date Notes Provider Name and Address Organization Details Recorded Time Attentio n deficit hyperact ivity disorder 073859711 Completed No meds Aleena rangel [facility] 12:17:26 Acute depressi on 921634904 Completed To start zoloft 25mg Aleena rangel [facility] 12:17:26 Alpha-fe toprotei n above referenc e range 235992209 Completed [facility] 01/21 - No evidence of NTD from [facility] u/s, but incomple te. [facility] U/S 02/14/21. NSTs & serial growth @ 32 wks - Getting at SS Aleena rangel [facility] 12:17:26 Pruritic urticari al papules and plaques of pregnanc y 54374040 Completed steroid cream Aleena rangel [facility] 12:17:26 Pregnanc y 70378352 Completed 202006/25/2021 SO rangel [facility] 5 17:55:10 Pregnanc y 63500814 Active 2024 SO rangel [facility] 5 17:55:10 Past pregnanc y history of gestatio nal diabetes mellitus 382077593 Active 2024 JERRY LEVI MD [address], [place], [address], [place] [facility] 5 11:07:10 Gestatio nal diabetes mellitus class A1 21130838 Active 2024 serial growth JERRY LEVI MD [address], [place], [address], [facility] 5 16:38:45 Breech presenta tion 2267734 Active 2024 footling breech, desires ECV JERRY LEVI MD [address], [place], [address], [facility] 5 14:03:22 Problem Notes None recorded. Procedures Surgical History Date Name Laterality Status Provider Name and Address Organization Details Recorded Time 3 Dilation and Curettage completed Tiff Ramesh [facility] 03/07/2025 17:49:40 0 Date of Last Pap Smear completed Brianne Sampson [facility] 04/15/2021 10:16:56 0 Dilation and Curettage completed Adriana Orozco [facility] 02/11/2021 19:34:56 Imaging Results None recorded. Procedure Notes None recorded. Medical Equipment None Reported. Allergies Allergen ID Allergen Name Allergen Category Reaction Reaction Severity Criticality Documentation Date Start Date Code Code System Note Provider Name and Address Organization Details Recorded Time 99916 latex environme nt,medica tion swelling Not available high 08/16/20252021 60301 91 RxNorm React ion: Not Available ariel [...] and Address Organization Details Last Updated DateTime 08/16/2025 170.18 cm 30.2 kg/m2 99983.33 g 96/60 mm[Hg] Dorothy Foxney [facility] 08/16/2025 16:19:35 Social History Question Answer Notes LastModified by Organizat ion Details LastModified Time Tobacco Smoking Status Never Smoker Brianne Sampson juan carlos, [facility] 11/24/2020 18:33:42 If You Are , What Was Your Level Of Alcohol Consumption Prior To ? None Information not available 01/14/2021 Are You Blind Or Do You Have Difficulty Seeing? No [email or web address] Information n ot available 01/14/2021 What Is Your Level Of Caffeine Consumption? Occasional [email or web address] Information not available 01/14/2021 In The 14 Days Before Symptom Onset, Have You Had Close Contact With A Laboratory-confirm ed COVID-19 While That Case Was Ill? No [email or web address] Information n ot available 01/14/2021 In The 14 Days Before Symptom Onset, Have You Had Close Contact With A Person Who Is Under Investigation For COVID-19 While That Person Was Ill? No [email or web address] Information not available 01/14/2021 Have You Been To An Area Known To Be High Risk For COVID-19? No [email or web address] Information not available 01/14/2021 Are You Deaf Or Do You Have Serious Difficulty Hearing? No [email or web address] Information not available 01/14/2021 What Type Of Diet Are You Following? REGULAR [email or web address] Information n ot available 01/14/2021 Have You Ever Been Counseled For Unhealthy Alcohol Use? No [email or web address] Information not available 01/14/2021 Do You Use Your Seat Belt Or Car Seat Routinely? Yes [email or web address] Information not available 01/14/2021 Do You Have Smoke And Carbon Monoxide Detectors In Your Home? Yes [email or web address] Information not available 01/14/2021 Do You Use Sunscreen Routinely? Yes [email or web address] Information not available 01/14/2021 Has Tobacco Cessation Counseling Been Provided? No [email or web address] Information not available 01/14/2021 Sex: Unknown Functional Status Question Answer Note LastModified by Organizat ion Details LastModified Time Do you use any illicit or recreational drugs? No [email or web address] Information not available 01/14/2021 Do you or have you ever used any other forms of tobacco or nicotine? No Information not available 01/14/2021 What is your level of alcohol consumption? Occasional Information not available 01/14/2021 Are you able to walk independently without assistance or assistive devices? YESWOREST [email or web address] Information not available 01/14/2021 What is your exercise level? Occasional [email or web address] Information not available 01/14/2021 Mental Status Question Answer Note LastModified by Organization D etails LastModified Time Do you feel stressed (tense, restless, nervous, or anxious, or unable to sleep at night)? [id number] [email or web address] Information not available 01/14/2021 Family History Relationship Description Onset Age of this Age Resolved Age Notes LastModified by Organization Details LastModified Time Father No current problems or disability [email or web address] Not available 11/24 18:33:35 Mother No current problems or disability Not available 11/24 18:33:35 Medical History Condition Response Allergies (Food, seasonal, environmental ) N Other N Breast Cancer N Drug/Latex Allergies/Reactions N Blood Transfusion N Dermatologic Disorders N Lung Disease N Defects or Inherited Disease N Breast Problem N Gestational Diabetes N Hematologic disorders N Anesthesia Complications N History of STI N Deep Vein Thrombosis N Polycystic ovary syndrome N Anxiety Disorder Y Autoimmune disease N Arthritis N Infertility N Polyps N Acid Reflux (GERD) N History of abnormal pap N Cancer N Stroke N Varicosities N Neurologic/Epilepsy N Endometriosis N High Cholesterol N Headaches N Fibromyalgia N Kidney Disease N Heart Problems N Kidney or Bladder Problems N Thyroid Problems N GI Problems N Eating Disorder [...] ICD10 Code Diagnosis IMO Codes Diagnosis Note [id number] JERRY LEVI MD [place] [address] [address] 07/29/2025 09:19:43 07/29/2025 10:06:04 Past history of gestational diabetes mellitus 807416768 O09.299 Z86.32 [id number] - GCT today Gestation period, 28 weeks 86542105 Z3A.28 [id number] - continue PNV [id number] Levy Garvin MD [place] [address] [address] 08/16/2025 15:48:14 08/18/2025 09:10:55 care status 692879447 Z34.83 [id number] Health Concerns Section Related Observation LastModified by Organization Detai ls LastModified Time None Recorded Concern Status LastModified by Organization Details LastModified Time None Recorded Payers Encounter Date Sequence Insurance Name Policy Number Policy Fabian Covered Member ID Fabian Member ID Guarantor Name 08/16/2025 1 [facility] (MEDICAID HMO) [id number] Oscar Elliott [id number] Oscar Elliott Notes Date Note Type Note Provider Name and Address Organization Details Recorded Time 08/16/2025 text/html Generic HPI TemplateReported by Patient Levy Garvin MD [address], [place], [address], [place] [facility] 08/16/2025 17:28:40 OBGyn Episode Ob Episode Information Episode Created Date Number of Fetuses Patient Bloodtype Patient rh Status Prepregnancy Weight lbs Domestic Partner Domestic Partner Phone Father Name Dietary Manager Status 04/02/20 25 1 A Positive 174 OPEN Fetus Data First Name Last Name Admitted to NICU Weight (g) Sex Living Outcome Pediatric Complications Fetus ID Race Codes Race Delivery Type [id number] Problems Problem Notes Problem Name Start Date End Date Resolution Snomed Code Not e Past history of gestational diabetes mellitus 05/10/2025 063469631 Gestational diabetes mellitus class A1 08/27/2025 17130910 serial nadir wth US Breech presentation 09/18/2025 [id number] footling breech, desires ECV Johann Calculation Initial [...] Sound Latest Days Gestation 06/04/20 25 20 [email or web address] 04/02/2025 10/17/19 26 5 Pre- Flowsheet Flowsheet Date 04/02/2025 Hale Score Blood Edema Fundus Height Fundus Units Glucose Ketones Leukocytes Nitrite Labor Signs Protein Cervic Dilation Cervic Effacement Cervic Station neg none Type Weight in lbs Pre/Post Dialysis Refused Weight 171.569738829811 BP Diastolic BP Location Tested BP Systolic BP Type 76 L arm 110 sitting Fetus Heart Rate Present A Present Fetus Movement A No Comments Patient presents to [facility] care. Hx of gestational diabetes in [...] Weight in lbs Pre/Post Dialysis Refused Weight 173.775843240554 BP Diastolic BP Location Tested BP Systolic [...] Type Weight in lbs Pre/Post Dialysis Refused 180.449440384502 BP Diastolic BP Location Tested BP Systolic [...] Weight in lbs Pre/Post Dialysis Refused Weight 184.058091633064 BP Diastolic BP Location Tested BP Systolic BP Type 67 L arm 101 sitting Fetus Heart Rate Present A 145 Fetus Movement A Yes Comments Doing well, baby active. No cramping. Had increased vaginal pressure and one episode of spotting on Tuesday, went to [facility] and workup was negative. Discussed GCT and labs for next visit. RTC 4 weeks. Flowsheet Date 07/29/2025 Hale Score Blood Edema Fundus Height Fundus Units Glucose Ketones Leukocytes Nitrite Labor Signs Protein Cervic Dilation Cervic Effacement Cervic Station Type Weight in lbs Pre/Post Dialysis Refused 192.476181299037 BP Diastolic BP Location Tested BP Systolic [...] Weight in lbs Pre/Post Dialysis Refused Weight 193.602644701697 BP Diastolic BP Location Tested BP Systolic BP Type 60 L arm 96 sitting Fetus Heart Rate Present A 146 Present Fetus Movement A Yes Comments patient did not attend diabe smiley education. Did not chicken picker insulin and supplies. She was counseled [...] Weight in lbs Pre/Post Dialysis Refused Weight [id number] BP Diastolic BP Location Tested BP Systolic [...] Weight in lbs Pre/Post Dialysis Refused Weight 193.895585011025 BP Diastolic BP Location Tested BP Systolic [...] having decr eased movement, was seen at [facility] last night and had reactive NST. US [...]
--- OUTSIDE RECORDS SUMMARY | 2025-09-19 23:55 | XMS_ITS | Clinical Summary ---
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 Gender Identity Not on file Sexual Orientation [...] 4:00 PM CDT Height 157.5 cm (5' 2) 03/23/2023 4:00 PM CDT Body Mass Index 25.61 03/23/2023 4:00 PM CDT Plan of Treatment Health Maintenance Due Date Last Done Comments Cervical Cancer Screening 1996 Depression Screening 1996 Hepatitis C Screening 1996 Varicella Vaccines (1 of 2 - 13+ 2-dose series) 2009 Hepatitis B Screening 2014 Regular Well Visit/Exam 18-64 2014 HPV Vaccines (1 - 3-dose SCD M series) 2023 Influenza Vaccine (#1) 2025 DTaP/Tdap/Td Vaccine (2 - Td or Tdap) 03/06/2033 03/06/2023 Pneumococcal vaccine <65 Aged Out No longer eligible based on patient's age to complete this topic Insurance [facility] Care Teams Records Management Manager Relationship Specialty Start Date End Date No, Physician PCP - General 12/21/21
--- OUTSIDE RECORDS SUMMARY | 2025-09-19 23:55 | XMS_ITS | Data Portability ---
Author Organization [facility] Address [address] [place] [address] [place] [address] Assessment No assessment recorded. Plan of Treatment [...] Surgeries external cephalic version (SURG) 2024 025 [email or web address] [facility], [address], [place], [address], 09/18/2025 15:05:16 Imaging US, obstetric , follow-up 2024 025 [email or web address] [address], [address], [place], [address], 09/18/2025 18:28:23 US, obstetric , biophysic al profile 2024 025 [email or web address] [address], [address], [place], [address], 09/18/2025 16:04:45 US, obstetric , follow-up 2024 025 [email or web address] [address], [address], [place], [address], 08/28/2025 16:32:31 Medication Orders None recorded. Patient TargetsNo targets recorded. Patient InstructionsNo instructions recorded. Reason for Referral None Reported. Results Created Date Observation Date Name Description Value Unit Range Abnormal Flag Note LastModifiedBy Organization Detail LastModifiedTime 07/30/2007/30/2025 non-s tress test No observ ation record ed. [address] [address], [place], [address], 07/31/2025 15:49:44 08/27/20 25 08/27/2025 US, obste tric, follo w-up No observ ation record ed. [facility] [address], [place], [address], 08/27/2025 18:12:06 08/27/20 25 08/27/2025 US, obste tric, follo w-up No observ ation record ed. ARIEL Chinchilla [address] [place] [address] 58, [place], [address], 09/06/2025 13:26:38 09/12/20 25 09/12/2025 non-s tress test No observ ation record ed. [address] [address], [place], [address], 09/17/2025 10:35:29 09/18/20 25 09/17/2025 imagi ng/di agnos tic resul t No observ ation record ed. [address] [address], [place], [address], 09/18/2025 09:59:20 09/18/20 25 09/18/2025 US, obste tric, follo w-up No observ ation record ed. [email or web address] [address], [place], [address], 09/18/2025 13:44:01 09/18/20 25 09/18/2025 US, risa kee, bioph ysica l profi le No observ ation record ed. [email or web address] [address], [place], [address], 09/18/2025 13:44:13 09/18/20 25 09/18/2025 US, obste tric, follo w-up No observ ation record ed. [email or web address]ée [address], [place], [address], 09/18/2025 13:07:33 Result Notes None recorded. Problems Name Problem SNOMED Code Status Onset Date Resolution Date Notes Provider Name and Address Organization Details Recorded Time Attentio n deficit hyperact ivity disorder 716303131 Completed [facility]s [facility] 12:17:26 Acute depressi on 099301293 Completed To start zoloft 25mg Aleena juan [facility] 12:17:26 Alpha-fe toprotei n above referenc e range 344921310 Completed [facility] 01/21 - No evidence of NTD from 1st u/s, but incomple te. Rpt U/S 02/14/21. NSTs & serial growth @ 32 wks - Getting at [facility] Aleena arngel [facility] 12:17:26 Pruritic urticari al papules and plaques of pregnanc y 50125428 Completed steroid cream Aleena juan [facility] 12:17:26 Pregnanc y 82865939 Completed 202006/25/2021 SO Shoemaker [facility] 17:55:10 Pregnanc y 61242786 Active 2024 SO Shoemaker [facility] 17:55:10 Past pregnanc y history of gestatio nal diabetes mellitus 559906786 Active 2024 JERRY LEVI MD [address], [place], [address], [facility] 5 11:07:10 Gestatio nal diabetes mellitus class A1 92742133 Active 2024 serial growth JERRY LEVI MD [address], [place], [address], [facility] 5 16:38:45 Breech presenta tion 4422751 Active 2024 footling breech, desires ECV JERRY LEVI MD [address], [place], [address], [facility] 5 14:03:22 Problem Notes None recorded. Procedures Surgical History Date Name Laterality Status Provider Name and Address Organization Details Recorded Time 3 Dilation and Curettage completed Tiff Ramesh [facility] 03/07/2025 17:49:40 0 Date of Last Pap Smear completed Brianne Sampson [facility] 04/15/2021 10:16:56 0 Dilation and Curettage completed Adriana Orozco [facility] 02/11/2021 19:34:56 Imaging Results None recorded. Procedure Notes None recorded. Medical Equipment None Reported. Allergies Allergen ID Allergen Name Allergen Category Reaction Reaction Severity Criticality Documentation Date Start Date Code Code System Note Provider Name and Address Organization Details Recorded Time 76033 latex environme nt,medica tion swelling Not available high 08/16/20252021 82717 91 RxNorm React ion: Not Available ariel [...] [facility] COVID-19 Test kit REFER TO LEEEmelia KIKI JOELEvangelista ONS INCLUDED IN PACKAGING 11/10 completed Not [...] Updated DateTime 08/23/2025 170.18 cm 30.2 kg/m2 58727.33 g 107/72 mm[Hg] Yanira [facility] 08/23/2025 16:51:53 Date Recorded Body height Body mass index (BMI) Body weight Systolic And Diastolic Provider Name and Address Organization Details Last Updated DateTime 08/27/2025 170.18 cm 30.2 kg/m2 95184.33 g 107/72 mm[Hg] Yanira [facility] 08/27/2025 15:40:28 Date Recorded Body height Provider Name an d Address Organization Details Last Updated DateTime 09/18/2025 170.18 cm LUCINA ELIO [facility] 09/18/2025 12:59:12 Social History Question Answer Notes LastModified by Organizat ion Details LastModified Time Tobacco Smoking Status Never Smoker Brianne rangel, [facility] 11/24/2020 18:33:42 If You Are , What Was Your Level Of Alcohol Consumption Prior To ? None [email or web address] Information not available 01/14/2021 Are You Blind Or Do You Have Difficulty Seeing? No [email or web address] Information n ot available 01/14/2021 What Is Your Level Of Caffeine Consumption? Occasional [email or web address] Information not available 01/14/2021 In The 14 Days Before Symptom Onset, Have You Had Close Contact With A Laboratory-confirm ed COVID-19 While That Case Was Ill? No [email or web address] Information n ot available 01/14/2021 In The 14 Days Before Symptom Onset, Have You Had Close Contact With A Person Who Is Under Investigation For COVID-19 While That Person Was Ill? No [email or web address] Information not available 01/14/2021 Have You Been To An Area Known To Be High Risk For COVID-19? No [email or web address] Information not available 01/14/2021 Are You Deaf Or Do You Have Serious Difficulty Hearing? No [email or web address] Information not available 01/14/2021 What Type Of Diet Are You Following? REGULAR [email or web address] Information n ot available 01/14/2021 Have You Ever Been Counseled For Unhealthy Alcohol Use? No [email or web address] Information not available 01/14/2021 Do You Use Your Seat Belt Or Car Seat Routinely? Yes [email or web address] Information not available 01/14/2021 Do You Have Smoke And Carbon Monoxide Detectors In Your Home? Yes [email or web address] Information not available 01/14/2021 Do You Use Sunscreen Routinely? Yes [email or web address] Information not available 01/14/2021 Has Tobacco Cessation Counseling Been Provided? No [email or web address] Information not available 01/14/2021 Sex: Unknown Functional Status Question Answer Note LastModified by Organizat ion Details LastModified Time Do you use any illicit or recreational drugs? No [email or web address] Information not available 01/14/2021 Do you or have you ever used any other forms of tobacco or nicotine? No Information not available 01/14/2021 What is your level of alcohol consumption? Occasional [email or web address] Information not available 01/14/2021 Are you able to walk independently without assistance or assistive devices? YESWOREST [email or web address] Information not available 01/14/2021 What is your exercise level? Occasional [email or web address] Information not available 01/14/2021 Mental Status Question Answer Note LastModified by Organization D etails LastModified Time Do you feel stressed (tense, restless, nervous, or anxious, or unable to sleep at night)? [id number] [email or web address] Information not available 01/14/2021 Family History Relationship Description Onset Age of this Age Resolved Age Notes LastModified by Organization Details LastModified Time Father No current problems or disability [email or web address] Not available 11/24 18:33:35 Mother No current problems or disability [email or web address] Not available 11/24 18:33:35 Medical History Condition [...] ICD10 Code Diagnosis IMO Codes Diagnosis Note [id number] Levy Garvin MD [place] [address] [address] 11/24/2020 17:22:34 11/24/2020 17:57:39 Uterine size for dates discrepancy 399388677 O26.849 15952 Ree Kolb CNM [place] [address],[place] [address] 11/24/2020 17:24:49 11/26/2020 15:25:32 test positive 870638669 Z32.01 Risk factors addressed: Tobacco Cessation, Safe Sexual Practices, environmen chetna, work hazards, travel restrictio ns, seat belt use.Eat a health well balanced diet, avoid alcohol, tobacco, and street drugs. Engage in daily low impact exercise, avoid temperatur e extremes, and cat, rodent, and bird feces.Avoi d travel to areas where zika virus is a concern.Pt desires NIPT/CF/SM A. Handouts given and discussed with patient. ildbirth classes recommende d.New OB sheet given. If previous , counseling .Pt verbalizes that she understand s the importance of above instructio ns.All questions were answered. Patient reminded to have annual well woman examinatio n and address preventati healthcare . [id number] Levy Garvin MD [place] [address],[place] [address] 12/15/2020 13:40:19 12/15/2020 15:34:43 Routine care 364562625 Z34.90 Depressive disorder 3548 9007 F32.9 37118 Levy Garvin MD [place] [address] [place] [address] 12/15/2020 13:40:40 12/15/2020 15:08:50 screening 414888719 Z36.82 38100 Soledad Smith [facility] [address] [place] [address] 01/14/2021 11:16:29 01/14/2021 12:44:23 Routine care 633552460 Z34.92 92886 Soledad Smith [facility] [address] [place] [address] 02/11/2021 17:52:11 02/12/2021 16:27:59 Routine care 981897452 Z34.92 75639 Ree Kolb [facility] [address] [place] [address] 03/11/2021 09:33:15 03/11/2021 22:11:19 Pain in pelvis 90819849 R10.2 88583 Alba Cordero MD [place] [address],[place] [address] 04/07/2021 10:34:32 04/07/2021 11:10:57 Routine care 510747153 Z34.83 Alpha-feto protein above reference range 762229475 R77.2 87813 Levy Garivn MD [place] [address],[place] [address] 04/14/2021 10:15:14 04/14/2021 11:53:31 Reduced movement 860026008 O36.8199 19996 Levy Garvin MD [place] [address],[place] [address] 04/14/2021 11:39:14 04/14/2021 12:38:44 Abnormal heart rate 718017574 O36.8330 Z3A.29 87788 Alba Cordero MD [place] [address],[place] [address] 04/24/2021 10:20:26 04/24/2021 14:57:11 Routine care 922760348 Z34.83 Reduced fe chetna movement 495713342 O36.8199 33729 MD Rubi Degroot [address],[place] [address] 04/24/2021 10:52:20 04/24/2021 11:35:39 Reduced movement 779067240 O36.8199 11768 Soledad Smith [facility] [address],[place] [address] 05/06/2021 12:00:09 05/06/2021 13:23:29 Routine care 182211124 Z34.92 58141 MD Rubi Degroot [address],[place] [address] 06/03/2021 14:04:40 06/03/2021 14:45:21 Anxiety in 5561978266 9109 F41.9 Routine an tenatal care 161160977 Z34.83 Reduced fe chetna movement 870422662 O36.8199 23112 Levy Garvin MD [place] [address],[place] [address] 06/03/2021 14:46:13 01/05/2022 15:36:52 83869 MD Rubi Harley [address],[place] [address] 06/11/2021 09:47:16 06/11/2021 12:12:31 Alpha-fetoprotein above reference range 092864492 R77.2 48026 Levy Garvin MD [place] [address],[place] [address] 06/11/2021 09:46:29 06/11/2021 10:42:57 Abnormal finding on screening of mother 287353253 O28.0 Z3A.37 86114 Levy Garvin MD [place] [address],[place] [address] 06/11/2021 09:47:40 06/11/2021 12:33:50 Localized eruption of skin 345981935 R21 70451 Levy Garvin MD [place] [address],[place] [address] 06/30/2021 13:50:29 06/30/2021 15:05:29 Mixed anxiety and depressive disorder 224312249 F41.8 this patient is a 25-year-ol d female with anxiety and depression . She presents reporting sadness and crying. She has difficulty with sleep. She is eating poorly. She is often not eating. She has some agitation. She has episodes of intense anxiety and excessive worry. She is functionin g well. She is able to take care of her baby. She denies any suicidal ideation or any plan to hurt herself or anyone else. We spent over 15 minutes face-to-fa ce and spent a total of 30 minutes working on her case. Talked about medication . She was given precaution s on the medication . She is asked to fill the Prozac and start taking it and to follow-up in 3 weeks. [id number] Levy Garvin MD [place] [address],[place] [address] 11/10/2024 12:07:07 11/12/2024 11:46:28 Incomplete miscarriage 385615078 O03.4 29-year-ol d female presents for vaginal bleeding. She had recent positive test. She has been seen in the emergency department for miscarriag e. She either has a completed or incomplete miscarriag e. Her test remains positive. Recent HCGs were trending down. Ultrasound the emergency department showed possible intrauteri ne gestationa l sac, but still products conception within the uterus. We agreed to repeat ultrasound and evaluate for remaining or retained products conception . We discussed treatment options. She continues to bleed. She will return in a coupe A couple of days. I spent more than 20 minutes on the patient's care in total. [id number] Levy Garvin MD [place] [address],[place] [address] 11/14/2024 12:00:58 11/14/2024 12:53:23 Threatened miscarriage 76439159 O20.0 Z3A.01 [id number] Levy Garvin MD [place] [address],[place] [address] 11/14/2024 16:01:15 11/15/2024 09:41:24 Missed miscarriage 28145849 O02.1 patient is a 29-year-ol d female presents for follow-up after completed a be. She had some heavy bleeding and cramping over the weekend. She had an ultrasound today. The endometriu m appears normal. There were no retained products conception . She has stopped bleeding. We talked about contracept ion. She declined. She will return for repeat test. She denies any nausea, vomiting, fever, chills. [id number] MD Rubi Harley [address],[place] [address] 03/07/2025 16:18:13 03/07/2025 16:49:39 [id number] Levy Garvin MD [place] [address],[place] [address] 03/07/2025 16:20:18 03/11/2025 09:49:20 Amenorrhea 32437355 N91.2 70025 this patient is an 29-year-ol d female with amenorrhea . She has a positive test and ultrasound shows a viable intrauteri ne . We talked about early care. Talked about precaution s in that included comments about diet, exercise, over-the-c ounter medication s.. We talked about vaccines. Talked about genetic screening. Talked about her ultrasound today and your ultrasound at 12 weeks. She will begin routine care. We spent 20 minutes face-to-fa ce. More than 50% was counseling . [id number] MD Rubi KENT [address],[place] [address] 04/02/2025 17:09:31 04/03/2025 09:40:06 screening 313140886 Z36.82 Z3A.11 534872 528958 MD Rubi KENT [address],[place] [address] 04/02/2025 17:10:48 04/03/2025 05:02:59 screening 456611915 Z36.89 Genetic in vestigation procedure 30708950 Z31.430 Gestation period, 11 weeks 04743898 Z3A.11 9006737 070154 MD Rubi KENT [address],[place] [address] 05/10/2025 10:16:22 05/10/2025 11:15:13 care status 412491199 Z34.82 32162884 - continue PNV [id number] MD Rubi KENT [address] [place] [address] 06/04/2025 10:26:08 06/04/2025 11:42:29 screening for malformation 418842362 Z36.3 Z3A.20 4219457583 606402 MD Rubi KENT [address],[place] [address] 06/04/2025 10:26:42 06/04/2025 12:18:10 care status 595079006 Z34.82 29595357 - continue PNV Heartburn 01222273 R12 63963 Gestation period, 20 weeks 39830194 Z3A.20 2514936 - continue PNV [id number] JERRY LEVI MD [place] [address],[place] [address] 07/01/2025 15:34:11 07/01/2025 16:25:11 screening 461500929 Z36.89 Gestation period, 24 weeks 231558701 Z3A.24 4601602 - continue PNV Past pregn tangela history of gestational diabetes mellitus 810752342 Z86.32 800445 - GCT at 28 weeks [id number] JERRY LEVI MD [place] [address],[place] [address] 07/29/2025 09:19:43 07/29/2025 10:06:04 Past history of gestational diabetes mellitus 304538394 O09.299 Z86.32 6475764 - GCT today Gestation period, 28 weeks 34841788 Z3A.28 5742643 - continue PNV [id number] Levy Garvin MD [place] [address],[place] [address] 08/16/2025 15:48:14 08/18/2025 09:10:55 care status 755908389 Z34.83 68572331 [id number] JERRY LEVI MD [place] [address],[place] [address] 08/23/2025 16:39:37 08/24/2025 08:01:43 Gestational diabetes mellitus 83541709 O24.410 54739892 - well controlled with diet, did not start insulin- continue glucose monitoring - serial growth US Gestation period, 32 weeks 6169841 Z3A.32 6344816 - continue PNV 504804 JERRY LEVI MD [place] [address],[place] [address] 08/27/2025 14:57:39 08/27/2025 15:28:35 Gestational diabetes mellitus 40530532 O24.410 Z3A.32 41757507 - well controlled with diet, did not start insulin- continue glucose monitoring - serial growth 875330 JERRY LEVI MD [place] [address],[place] [address] 08/27/2025 14:58:21 08/27/2025 16:49:27 Gestational diabetes mellitus class A1 91971926 O24.410 06511 - well controlled with diet, did not start insulin- continue glucose monitoring - serial growth US Gestation period, 32 weeks 2493547 Z3A.32 2312511 - continue PNV [id number] JERRY LEVI MD [place] [address],[place] [address] 09/18/2025 12:32:59 09/18/2025 13:07:52 Gestational diabetes mellitus 60513162 O24.410 O36.8130 Z3A.35 75035221 [id number] JERRY LEVI MD [place] [address],[place] [address] 09/18/2025 12:33:26 09/18/2025 14:13:18 Gestational diabetes mellitus class A1 45942962 O24.410 22771 - well controlled with diet, did not start insulin- continue glucose monitoring - serial growth US Breech presentation 6096 002 O32.1XX0 58304647 - footling breech- discussed r/b of ECV vs PCS; desires ECV Gestation period, 35 weeks 27137187 Z3A.35 8428693 Health Concerns Section Related Observation LastModified by Organization Detai ls LastModified Time None Recorded Concern Status LastModified by Organization Details LastModified Time None Recorded Advance Directives Directive None Recorded Payers Insurance Date Sequence Insurance Name Policy Number Policy Fabian Covered Member ID Fabian Member ID Guarantor Name 05/07/2025 1 *SELF PAY* Ch eleni R Everage 08/15/2025 1 [facility] [id number] Chalyn R Everage [id number] Danielyn R Everage 09/09/2025 1 [facility] [id number] Chalyn E Everage [id number] Chalyn R Everage 2025 2 [place] Oscar R Everage [id number] Oscar R Everage 08/15/2025 1 [place] [facility] Chalyn R Everage [id number] Chalyn R Everage 11/24/2020 1 *SELF PAY* Ch eleni R Everage 08/15/[address] [facility] (MEDICAID HMO) [id number] Chalyn R Everage [id number] Chalyn R Everage 09/09/[address] [facility] (MEDICAID HMO) [id number] Chalyn R Everage [id number] Chalyn R Everage 08/15/[address] [facility] (MEDICAID HMO) [id number] 003 Chalyn R Everage [id number] Chalyn R Everage Notes Date Note Type Note Provider Name and Address Organization Details Recorded Time 08/23/2025 text/html Generic HPI TemplateReported by Patient JERRY LEVI MD [address], [place], [address], [facility] 08/23/2025 17:11:32 08/27/2025 text/html Generic HPI TemplateReported by Patient JERRY LEVI MD [address], [place], [address], [facility] 08/27/2025 16:39:12 09/18/2025 text/html Generic HPI TemplateReported by Patient JERRY LEVI MD [address], [place], [address], [facility] 09/18/2025 14:04:38 OBGyn Episode Ob Episode Information Episode Created Date Number of Fetuses Patient Bloodtype Patient rh Status Prepregnancy Weight lbs Domestic Partner Domestic Partner Phone Father Name Real Estate Agent Status 12/16/19 21 1 A Positive 136 CLOSED Fetus Data First Name Last Name Admitted to NICU Weight (g) Sex Living Outcome Pediatric Complications Fetus ID Race Codes [facility] 1 F true Full Term Gastric Aspirate 8 ccs 8446 Vaginal Delivery Problems Problem Notes Sister with DiGeorge Syndrom e, and TOF, - MFM consult - NL NIPT & NL microdeletionsPt gave verbal consent for CF/SMA in office on 12/15/2020. Lizabeth and mom were also in the lab when pt consented to this as pt originally declined on consent form. [email or web address] until end of 05/2021. Weekly NST/BPP start 05/05/21 at [place] [facility]. Next appt 06/02/21 NST/ pt coming here for all testing declines COVID vaccine Problem Name Start Date End Date Resolution Snomed Code Not e Pruritic urticarial papules and plaques of MEDICATION 21444574 steroid cream Alpha-fetoprotein above reference range 959976798 [facility] 01/21 - N o evidence of NTD from [facility] u/s, but incomplete. Rpt U/S 02/14/21. NSTs & serial growth @ 32 wks - Getting at [facility] Attention deficit hyperactivity disorder 867434142 No me ds Acute depression MEDICATION 476233946 To start zoloft 25mg Johann Calculation Initial Johann Date Initial Exam Date Initial Exam Provider Initial Ultrasound Date Last Menstrual Period Date Ultra Sound Weeks Gestation 06/29/2021 12/15/2020 11/24/2020 09/07/2020 9 Eighteen To Twenty Week Johann Update Ultra Sound Date Fundal Height At Umbil Quickening Date Ultra Sound Latest Weeks Gestation Final Johann Confirmed By Final Johann Confirmed Date Final Johann Date Ultra Sound Latest Days Gestation 0 [email or web address] 12/15/2020 06/29/20 21 0 Pre- Flowsheet Flowsheet Date 12/15/2020 Hale Score Blood Edema Fundus Height Fundus Units Glucose Ketones Leukocytes Nitrite Labor Signs Protein Cervic Dilation Cervic Effacement Cervic Station Type Weight in lbs Pre/Post Dialysis Refused BP Diastolic BP Location Tested BP Systolic BP Type Fetus Heart Rate Present Fetus Movement Comments Flowsheet Date 12/15/2020 Hale Score Blood Edema Fundus Height Fundus Units Glucose Ketones Leukocytes Nitrite Labor Signs Protein Cervic Dilation Cervic Effacement Cervic Station 12 Type Weight in lbs Pre/Post Dialysis Refused Weight 132.016237144030 BP Diastolic BP Location Tested BP Systolic BP Type 65 R arm 102 sitting Fetus Heart Rate Present A 164 Fetus Movement Comments this patient is a 25-year-ol d 2 para 0010 at 12 weeks gestation. Patient has a history of depression and anxiety and possible bipolar disorder. She is experiencing any symptoms of depression at this time. She has sadness and crying, poor concentration, feeling overwhelmed, we agreed to treat with 25 mg of Zoloft. I feel low-dose will be safe given that she may have some go. patient has a sister with DiGeorge syndrome and tetralogy of Fallot. She will need MFM consult and level 2 ultrasound. Patient will follow-up in 4 weeks. To begin routine care. Flowsheet Date 01/14/2021 Hale Score Blood Edema Fundus Height Fundus Units Glucose Ketones Leukocytes Nitrite Labor Signs Protein Cervic Dilation Cervic Effacement Cervic Station neg none trace Type Weight in lbs Pre/Post Dialysis Refused Weight 128.007310175193 BP Diastolic BP Location Tested BP Systolic BP Type 54 99 Fetus Heart Rate Present A 158 Fetus Movement A No Comments stopped zoloft passed out declines another medication for now, would like to monitor, no bleeding or cramping, precautions reviewed f/u anatomy scan Flowsheet Date 02/11/2021 Hale Score Blood Edema Fundus Height Fundus Units Glucose Ketones Leukocytes Nitrite Labor Signs Protein Cervic Dilation Cervic Effacement Cervic Station neg none trace Type Weight in lbs Pre/Post Dialysis Refused Weight 130.601796799417 BP Diastolic BP Location Tested BP Systolic BP Type 66 105 Fetus Heart Rate Present A 160 Fetus Movement A Yes Comments PATIENT STATES THAT HAVING B ACK PAIN, PAIN, DISCHARGE, AND PRESSURE, doing well, pressure in labia, no sign of infection, precautions reviewed, has [facility] US next week f/u 4 weeks, consider ordering maternity support belt at that time Flowsheet Date 03/11/2021 Hale Score Blood Edema Fundus Height Fundus Units Glucose Ketones Leukocytes Nitrite Labor Signs Protein Cervic Dilation Cervic Effacement Cervic Station none 24 trace Type Weight in lbs Pre/Post Dialysis Refused Weight 134.521677534500 BP Diastolic BP Location Tested BP Systolic BP Type 65 102 Fetus Heart Rate Present A 146 Fetus Movement A Yes Comments Doing well. Measure for mate rnity belt. Plan 1 hour gtt at next visit. Flowsheet Date 04/07/2021 Hale Score Blood Edema Fundus Height Fundus Units Glucose Ketones Leukocytes Nitrite Labor Signs Protein Cervic Dilation Cervic Effacement Cervic Station neg trace 29 trace Type Weight in lbs Pre/Post Dialysis Refused Weight 133.243514625342 BP Diastolic BP Location Tested BP Systolic BP Type 65 109 Fetus Heart Rate Present A 155 Fetus Movement A Yes Comments N/V last 4-5 days. Didn't ke ep anything down yesterday except a plum. Trying to do GCT today. May need IV fluids in triage. Has not lost weight since last visit. Flowsheet Date 04/14/2021 Hale Score Blood Edema Fundus Height Fundus Units Glucose Ketones Leukocytes Nitrite Labor Signs Protein Cervic Dilation Cervic Effacement Cervic Station Type Weight in lbs Pre/Post Dialysis Refused BP Diastolic BP Location Tested BP Systolic BP Type Fetus Heart Rate Present Fetus Movement Comments Flowsheet Date 04/14/2021 Hale Score Blood Edema Fundus Height Fundus Units Glucose Ketones Leukocytes Nitrite Labor Signs Protein Cervic Dilation Cervic Effacement Cervic Station Type Weight in lbs Pre/Post Dialysis Refused BP Diastolic BP Location Tested BP Systolic BP Type 69 R arm 108 sitting Fetus Heart Rate Present Fetus Movement Comments Flowsheet Date 04/24/2021 Hale Score Blood Edema Fundus Height Fundus Units Glucose Ketones Leukocytes Nitrite Labor Signs Protein Cervic Dilation Cervic Effacement Cervic Station 31 trace Type Weight in lbs Pre/Post Dialysis Refused Weight 142.019652000012 BP Diastolic BP Location Tested BP Systolic BP Type 78 114 Fetus Heart Rate Present Fetus Movement A Decreased Comments Increased mucus / discharge- denies itching, odor, irritation. Denies watery fluid. Reassured. Decreased FM for several days and not passing her kick counts, but didn't tell us. Has not eaten today. After snack and water, NST 135 with 10x10s- reassuring for GA, she has felt some movement. Encouraged to eat/drink regularly. Flowsheet Date 04/24/2021 Hale Score Blood Edema Fundus Height Fundus Units Glucose Ketones Leukocytes Nitrite Labor Signs Protein Cervic Dilation Cervic Effacement Cervic Station Type Weight in lbs Pre/Post Dialysis Refused BP Diastolic BP Location Tested BP Systolic BP Type Fetus Heart Rate Present Fetus Movement Comments Flowsheet Date 05/06/2021 Hale Score Blood Edema Fundus Height Fundus Units Glucose Ketones Leukocytes Nitrite Labor Signs Protein Cervic Dilation Cervic Effacement Cervic Station neg trace 29 trace Type Weight in lbs Pre/Post Dialysis Refused Weight 145.0146755239 BP Diastolic BP Location Tested BP Systolic BP Type 62 100 Fetus Heart Rate Present A 154 Present Fetus Movement A Yes Comments patient is having contractio ns and swelling. doing well, weekly appt with [facility], call for preadmit precautions reviewed Flowsheet Date 06/03/2021 Hale Score Blood Edema Fundus Height Fundus Units Glucose Ketones Leukocytes Nitrite Labor Signs Protein Cervic Dilation Cervic Effacement Cervic Station neg trace 36 trace 1cm 20% Type Weight in lbs Pre/Post Dialysis Refused Weight 153.612954479520 BP Diastolic BP Location Tested BP Systolic BP Type 74 114 Fetus Heart Rate Present A 140 Fetus Movement A Decreased Comments Doing ok except anxiety gett ing pretty bad. Denies SI/HI. Declines medication, but wants to start . Precautions given. Decreased FM this week, nothing yet today, but also just got up and hasn't had anything to eat yet. Will do NST. Discussed and encouraged Tdap and COVID vaccines. Will do Tdap, declines COVID vaccine. GBS done and discussed. Flowsheet Date 06/03/2021 Hale Score Blood Edema Fundus Height Fundus Units Glucose Ketones Leukocytes Nitrite Labor Signs Protein Cervic Dilation Cervic Effacement Cervic Station Type Weight in lbs Pre/Post Dialysis Refused BP Diastolic BP Location Tested BP Systolic BP Type Fetus Heart Rate Present Fetus Movement Comments Flowsheet Date 06/11/2021 Hale Score Blood Edema Fundus Height Fundus Units Glucose Ketones Leukocytes Nitrite Labor Signs Protein Cervic Dilation Cervic Effacement Cervic Station Type Weight in lbs Pre/Post Dialysis Refused BP Diastolic BP Location Tested BP Systolic BP Type Fetus Heart Rate Present Fetus Movement Comments Flowsheet Date 06/11/2021 Hale Score Blood Edema Fundus Height Fundus Units Glucose Ketones Leukocytes Nitrite Labor Signs Protein Cervic Dilation Cervic Effacement Cervic Station Type Weight in lbs Pre/Post Dialysis Refused BP Diastolic BP Location Tested BP Systolic BP Type Fetus Heart Rate Present Fetus Movement Comments Flowsheet Date 06/11/2021 Hale Score Blood Edema Fundus Height Fundus Units Glucose Ketones Leukocytes Nitrite Labor Signs Protein Cervic Dilation Cervic Effacement Cervic Station 37 trace Type Weight in lbs Pre/Post Dialysis Refused Weight 157.357939778217 BP Diastolic BP Location Tested BP Systolic BP Type 77 R arm 140 sitting Fetus Heart Rate Present A 148 Fetus Movement A Yes Comments [place] pang in duce at 39 weeks Menstrual History Last Menstrual Date Menses Monthly On Bcp Conception Prior Menses Frequency Hcg Plus Date Menarche Onset Age 1209/07/2020 Genetic Screening And Infection History Question Response Note Mental Retardation/Autism false Patient's Age Will Be 35 Years Or Older At Estim ated Date of Delivery false Thalassemia (Sinhala, Montserratian, Mediterranean, Or Background): MCV < 80 false Neural Tube Defect (Meningomyelocele, Spina Bifi da, Or Anencephaly) false Congenital Heart Defect false Down Syndrome false Errol-Sachs (eg, Lutheran, Cajun, Albanian-Seneca) f alse Farida Disease false Sickle Cell Disease Or Trait () false Hemophilia Or Other Blood Disorders false Muscular Dystrophy false Cystic Fibrosis false [place]'s Chorea false Intellectual Disability/Autism false If Yes, Was Person Tested For Fragile X? false Other Inherited Genetic Or Chromosomal Disorder false Maternal Metabolic Disorder (eg, Type 1 Diabetes , PKU) false Patient Or Baby's Father Had A Child With Defects Not Listed Above false Recurrent Loss, Or A Stillbirth false Medications (including Suppl ements, Vitamins, Herbs, OTC Drugs), Illicit/Recreational Drugs, Alcohol false If Yes, Agent(s) And Strength/Dosage false Any Other Genetic History false Live With Someone With TB Or Exposed To TB false Patient Or Partner Has History Of Genital Herpes false Rash Or Viral Illness Since Last Menstrual Perio d false History Of STD, Gonorrhea, Chlamydia, HPV, Syphi lis false Other Infection History false History of HIV false History of Hepatitis false Prior GBS-infected child false Hemoglobinopathy Or Carrier false Other Structural Defect false Recent Travel History Outside of Country false Delivery Information Delivery Date Delivery Type Labor Anesthesia Weeks Gestation Incision Type Labor Labor Length Hrs Delivered By Post Complications Tubal Sterilization Discharge Date Comments [facility] idural 38.1 false ChinoRee verma CNM ABX for Prolonged ROM Ebl 241 ccs Discharge Information Feeding Method Contraceptive Method Maternal HG B and HCT Levels Ob Episode Information Episode Created Date Number of Fetuses Patient Bloodtype Patient rh Status Prepregnancy Weight lbs Domestic Partner Domestic Partner Phone Father Name Real Estate Agent Status 11/24/19 21 1 CLOSED Fetus Data First Name Last Name Admitted to NICU Weight (g) Sex Living Outcome Pediatric Complications Fetus ID Race Codes Race Delivery Type , Spontane ous [id number] Johann Calculation Initial Johann Date Initial Exam Date Initial Exam Provider Initial Ultrasound Date Last Menstrual Period Date Ultra Sound Weeks Gestation 0 Eighteen To Twenty Week Johann Update Ultra Sound Date Fundal Height At Umbil Quickening Date Ultra Sound Latest Weeks Gestation Final Johann Confirmed By Final Johann Confirmed Date Final Johann Date Ultra Sound Latest Days Gestation 0 0 Menstrual History Last Menstrual Date Menses Monthly On Bcp Conception Prior Menses Frequency Hcg Plus Date Menarche Onset Age Delivery Information Delivery Date Delivery Type Labor Anesthesia Weeks Gestation Incision Type Labor Labor Length Hrs Delivered By Post Complications Tubal Sterilization Discharge Date Comments 0 Discharge Information Feeding Method Contraceptive Method Maternal HG B and HCT Levels Ob Episode Information Episode Created Date Number of Fetuses Patient Bloodtype Patient rh Status Prepregnancy Weight lbs Domestic Partner Domestic Partner Phone Father Name Real Estate Agent Status 03/07/20 25 1 CLOSED Fetus Data First Name Last Name Admitted to NICU Weight (g) Sex Living Outcome Pediatric Complications Fetus ID Race Codes Race Delivery Type , [place]ontane ous [id number] Johann Calculation Initial Johann Date Initial Exam Date Initial Exam Provider Initial Ultrasound Date Last Menstrual Period Date Ultra Sound Weeks Gestation 0 Eighteen To Twenty Week Johann Update Ultra Sound Date Fundal Height At Umbil Quickening Date Ultra Sound Latest Weeks Gestation Final Johann Confirmed By Final Johann Confirmed Date Final Johann Date Ultra Sound Latest Days Gestation 0 0 Menstrual History Last Menstrual Date Menses Monthly On Bcp Conception Prior Menses Frequency Hcg Plus Date Menarche Onset Age Delivery Information Delivery Date Delivery Type Labor Anesthesia Weeks Gestation Incision Type Labor Labor Length Hrs Delivered By Post Complications Tubal Sterilization Discharge Date Comments 3 Discharge Information Feeding Method Contraceptive Method Maternal HG B and HCT Levels Ob Episode Information Episode Created Date Number of Fetuses Patient Bloodtype Patient rh Status Prepregnancy Weight lbs Domestic Partner Domestic Partner Phone Father Name Real Estate Agent Status 04/02/20 25 1 A Positive 174 OPEN Fetus Data First Name Last Name Admitted to NICU Weight (g) Sex Living Outcome Pediatric Complications Fetus ID Race Codes Race Delivery Type [id number] Problems Problem Notes Problem Name Start Date End Date Resolution Snomed Code Not e Past history of gestational diabetes mellitus 05/10/2025 [id number] Gestational diabetes mellitus class A1 08/27/2025 [id number] serial nadir wth US Breech presentation 09/18/2025 [id number] foot[place] breech, desires ECV Johann Calculation Initial Johann Date Initial Exam Date Initial Exam Provider Initial Ultrasound Date Last Menstrual Period Date Ultra Sound Weeks Gestation 10/17/2025 04/02/2025 04/02/202501/10/2025 11 Eighteen To Twenty Week Johann Update Ultra Sound Date Fundal Height At Umbil Quickening Date Ultra Sound Latest Weeks Gestation Final Johann Confirmed By Final Johann Confirmed Date Final Johann Date Ultra Sound Latest Days Gestation 06/04/20 25 20 [email or web address] 04/02/2025 10/17/19 26 5 Pre- Flowsheet Flowsheet Date 04/02/2025 Hale Score Blood Edema Fundus Height Fundus Units Glucose Ketones Leukocytes Nitrite Labor Signs Protein Cervic Dilation Cervic Effacement Cervic Station neg none Type Weight in lbs Pre/Post Dialysis Refused Weight 171.236582584411 BP Diastolic BP Location Tested BP Systolic BP Type 76 L arm 110 sitting Fetus Heart Rate Present A Present Fetus Movement A No Comments Patient presents to [facility] care. Hx of gestational diabetes in [...] Weight in lbs Pre/Post Dialysis Refused Weight 173.498682988325 BP Diastolic BP Location Tested BP Systolic [...] Type Weight in lbs Pre/Post Dialysis Refused 180.453313034220 BP Diastolic BP Location Tested BP Systolic [...] Weight in lbs Pre/Post Dialysis Refused Weight 184.604789548223 BP Diastolic BP Location Tested BP Systolic BP Type 67 L arm 101 sitting Fetus Heart Rate Present A 145 Fetus Movement A Yes Comments Doing well, baby active. No cramping. Had increased vaginal pressure and one episode of spotting on Tuesday, went to [place] and workup was negative. Discussed GCT and labs for next visit. RTC 4 weeks. Flowsheet Date 07/29/2025 Hale Score Blood Edema Fundus Height Fundus Units Glucose Ketones Leukocytes Nitrite Labor Signs Protein Cervic Dilation Cervic Effacement Cervic Station Type Weight in lbs Pre/Post Dialysis Refused 192.240658772294 BP Diastolic BP Location Tested BP Systolic [...] Weight in lbs Pre/Post Dialysis Refused Weight 193.672449651063 BP Diastolic BP Location Tested BP Systolic BP Type 60 L arm 96 sitting Fetus Heart Rate Present A 146 Present Fetus Movement A Yes Comments patient did not attend diabe smiley education. Did not cook pickled meat insulin and supplies. She was counseled today [...] Weight in lbs Pre/Post Dialysis Refused Weight 193.364593911078 BP Diastolic BP Location Tested BP Systolic [...] Weight in lbs Pre/Post Dialysis Refused Weight 193.416487232910 BP Diastolic BP Location Tested BP Systolic [...] Method Maternal HG B and HCT Levels Ob Episode Information Episode Created Date Number of Fetuses Patient Bloodtype Patient rh Status Prepregnancy Weight lbs Domestic Partner Domestic Partner Phone Father Name Real Estate Agent Status 11/14/19 25 1 CLOSED Fetus Data First Name Last Name Admitted to NICU Weight (g) Sex Living Outcome Pediatric Complications Fetus ID Race Codes Race Delivery Type , [place]ontane ous [id number] Johann Calculation Initial Johann Date Initial Exam Date Initial Exam Provider Initial Ultrasound Date Last Menstrual Period Date Ultra Sound Weeks Gestation 0 Eighteen To Twenty Week Johann Update Ultra Sound Date Fundal Height At Umbil Quickening Date Ultra Sound Latest Weeks Gestation Final Johann Confirmed By Final Johann Confirmed Date Final Johann Date Ultra Sound Latest Days Gestation 0 0 Menstrual History Last Menstrual Date Menses Monthly On Bcp Conception Prior Menses Frequency Hcg Plus Date Menarche Onset Age Delivery Information Delivery Date Delivery Type Labor Anesthesia Weeks Gestation Incision Type Labor Labor Length Hrs Delivered By Post Complications Tubal Sterilization Discharge Date Comments 5 Discharge Information Feeding Method Contraceptive Method Maternal HG B and HCT Levels
--- OUTSIDE RECORDS SUMMARY | 2025-09-19 23:55 | XMS_ITS | Continuity of Care Document ---
Author Organization [facility] [place] Address [address] [place] [address] Assessment No assessment recorded. Plan of Treatment [...] [facility] [address], [place], [address], 04/09/2025 23:26:44 04/09/20 25 04/09/2025 [UNIT Y] ANEUP LOIDY NIPT sex chromosome aneuploidy NOT DETECT ED normal Not Available [facility] [address], [place], [address], 04/09/2025 23:26:44 04/09/20 25 04/09/2025 [UNIT Y] ANEUP LOIDY NIPT monosomy X LOW RISK <1 in 10,000 normal Not Available [facility] [address], [place], [address], 04/09/2025 23:26:44 04/09/20 25 04/09/2025 [UNIT Y] ANEUP LOIDY NIPT trisomy 13 LOW RISK <1 in 10,000 normal Not Available [facility] [address], [place], [address], 04/09/2025 23:26:44 04/09/20 25 04/09/2025 [UNIT Y] ANEUP LOIDY NIPT trisomy 18 LOW RISK <1 in 10,000 normal Not Available [facility] [address], [place], [address], 04/09/2025 23:26:44 04/09/20 25 04/09/2025 [UNIT Y] ANEUP LOIDY NIPT trisomy 21 LOW RISK <1 in 10,000 normal Not Available [facility] [address], [place], [address], 04/09/2025 23:26:44 04/09/20 25 04/09/2025 [UNIT Y] ANEUP LOIDY NIPT sex FEMALE normal Not Available [facility] [address], [place], [address], 04/09/2025 23:26:44 04/09/20 25 04/09/2025 [UNIT Y] ANEUP LOIDY NIPT gestation SINGLE TON normal Not Available [facility] [address], [place], [address], 04/09/2025 23:26:44 04/09/20 25 04/09/2025 [UNIT Y] ANEUP LOIDY NIPT for detailed report, see pdf See PDF normal Not Available [facility] [address], [place], [address], 04/09/2025 23:26:44 04/15/20 25 04/15/2025 [UNIT Y] JOVANY ER SCREE N fraction 5.4% normal Not Available [facility] [address], [place], [address], 04/15/2025 23:58:47 04/15/20 25 04/15/2025 [UNIT Y] JOVANY Frey sickle cell disease/beta -thalassemia /hemoglobino pathies nipt result LOW RISK < 1 in 3200 normal Not Available [facility] [address], [place], [address], 04/15/2025 23:58:47 04/15/20 25 04/15/2025 [UNIT Y] JOVANY Frey sickle cell disease/beta -thalassemia /hemoglobino pathies carrier screen POSITI VE Sickle cell: c.20A> T (p.Glu 7Val) abnormal Not Available [facility] [address], [place], [address], 04/15/2025 23:58:47 04/15/20 25 04/15/2025 [UNIT Y] JOVANY Frey alpha-thalas semia carrier screen NEGATI VE normal Not Available [facility] [address], [place], [address], 04/15/2025 23:58:47 04/15/20 25 04/15/2025 [UNIT Y] JOVANY Frey cystic fibrosis carrier screen NEGATI VE normal Not Available [facility] [address], [place], [address], 04/15/2025 23:58:47 04/15/20 25 04/15/2025 [UNIT Y] JOVANY Frey spinal muscular atrophy carrier screen NEGATI VE 3 SMN1 copies , SNP presen t normal Not Available [facility] [address], [place], [address], 04/15/2025 23:58:47 04/15/20 25 04/15/2025 [UNIT Y] JOVANY Frey for detailed report, see pdf See PDF normal Not Available [facility] [address], [place], [address], 04/15/2025 23:58:47 04/02/2004/02/2025 HIV 1/2 ANTIG EN/AN TIBOD Y, REFLE X CONFI RMATI ON HIV antigen/anti body Nonrea ctive nonrea ctive HIV-1 antig en and HIV-1 /HIV- 2 antib odies were not detec nhan. No labor atory evide nce of HIV infec tion. Not Available [facility] (Lab) [address], [place], [address], 04/03/2025 12:34:58 04/02/2004/02/2025 HEPAT ITIS B SURFA CE ANTIG EN hepatitis B surface antigen Non-re active non-re active This assay was perfo rmed using [employer] ratio n reage nts and test kits. Value s obtai tunde with other assay metho ds or kits canno t be used inter baez eably . Not Available [facility] (Lab) [address], [place], [address], 04/03/2025 12:34:58 04/02/2004/02/2025 CBC W/DIF F WBC 10.3 10'3/ uL 3.5-10 .5 Not Available [facility] (Lab) [address], [place], [address], 04/03/2025 12:34:59 04/02/20 25 04/02/2025 CBC W/DIF F RBC 3.84 10'6/ uL (based on docume nted legal sex) 3.80-5 .20 Not Available [facility] (Lab) [address], [place], [address], 04/03/2025 12:34:59 04/02/20 25 04/02/2025 CBC W/DIF F HGB 11.8 g/dL (based on docume nted legal sex) 11.6-1 5.4 Not Available [facility] (Lab) [address], [place], [address], 04/03/2025 12:34:59 04/02/20 25 04/02/2025 CBC W/DIF F HCT 34.1 % (based on docume nted legal sex) 34.0-4 5.0 Not Available [facility] (Lab) [address], [place], [address], 04/03/2025 12:34:59 04/02/20 25 04/02/2025 CBC W/DIF F MCV 88.8 fL 80.0-9 9.0 Not Available [facility] (Lab) [address], [place], [address], 04/03/2025 12:34:59 04/02/20 25 04/02/2025 CBC W/DIF F MCH 30.7 pg 27.0-3 4.0 Not Available [facility] (Lab) [address], [place], [address], 04/03/2025 12:34:59 04/02/20 25 04/02/2025 CBC W/DIF F MCHC 34.6 g/dL 32.0-3 5.5 Not Available [facility] (Lab) [address], [place], [address], 04/03/2025 12:34:59 04/02/20 25 04/02/2025 CBC W/DIF F RDW 12.5 % 11.0-1 5.0 Not Available [facility] (Lab) [address], [place], [address], 04/03/2025 12:34:59 04/02/20 25 04/02/2025 CBC W/DIF F plt 267 10'3/ uL 150-40 0 Not Available [facility] (Lab) [address], [place], [address], 04/03/2025 12:34:59 04/02/20 25 04/02/2025 CBC W/DIF F MPV 10.2 fL 8.8-12 .1 Not Available [facility] (Lab) [address], [place], [address], 04/03/2025 12:34:59 04/02/20 25 04/02/2025 CBC W/DIF F NRBC's 0.0 % 0.0 Not Available [facility] (Lab) [address], [place], [address], 04/03/2025 12:34:59 04/02/20 25 04/02/2025 CBC W/DIF F absolute NRBCs 0.0 10'3/ uL no refere nce range establ ished Not Available [facility] (Lab) [address], [place], [address], 04/03/2025 12:34:59 04/02/20 25 04/02/2025 CBC W/DIF F neutrophils 73.5 % 34.0-7 3.0 high Not Available [facility] (Lab) [address], [place], [address], 04/03/2025 12:34:59 04/02/20 25 04/02/2025 CBC W/DIF F lymphocytes 18.6 % 15.0-5 0.0 Not Available [facility] (Lab) [address], [place], [address], 04/03/2025 12:34:59 04/02/20 25 04/02/2025 CBC W/DIF F monocytes 6.1 % 1.0-15 .0 Not Available [facility] (Lab) [address], [place], [address], 04/03/2025 12:34:59 04/02/2004/02/2025 CBC W/DIF F eosinophils 1.3 % 0.0-8. 0 Not Available [facility] (Lab) [address], [place], [address], 04/03/2025 12:34:59 04/02/20 25 04/02/2025 CBC W/DIF F basophils 0.2 % 0.0-2. 0 Not Available [facility] (Lab) [address], [place], [address], 04/03/2025 12:34:59 04/02/20 25 04/02/2025 CBC W/DIF [...] separ ately if prese nt. Not Available [facility] (Lab) [address], [place], [address], 04/03/2025 12:34:59 04/02/20 25 04/02/2025 CBC W/DIF F absolute neutrophils 7.6 10'3/ uL 1.5-8. 0 Not Available [facility] (Lab) [address], [place], [address], 04/03/2025 12:34:59 04/02/20 25 04/02/2025 CBC W/DIF F absolute lymphocytes 1.9 10'3/ uL 1.0-4. 0 Not Available [facility] (Lab) [address], [place], [address], 04/03/2025 12:34:59 04/02/20 25 04/02/2025 CBC W/DIF F absolute monocytes 0.6 10'3/ uL 0.2-1. 0 Not Available [facility] (Lab) [address], [place], [address], 04/03/2025 12:34:59 04/02/20 25 04/02/2025 CBC W/DIF F absolute eosinophils 0.1 10'3/ uL 0.0-0. 6 Not Available [facility] (Lab) [address], [place], [address], 04/03/2025 12:34:59 04/02/20 25 04/02/2025 CBC W/DIF F absolute basophils 0.0 10'3/ uL 0.0-0. 3 Not Available [facility] (Lab) [address], [place], [address], 04/03/2025 12:34:59 04/02/20 25 04/02/2025 CBC W/DIF [...] bhand book. nm.or g/gen derx Not Available [facility] (Lab) [address], [place], [address], 04/03/2025 12:34:59 04/02/20 25 04/02/2025 HEPAT ITIS C ANTIB CHER SCREE N, REFLE X TO CONFI RMATI ON hepatitis C antibody Non-re active non-re active Antib odies to HCV Not Detec nhan, does not exclu de the possi bilit y of expos ure to HCV. Not Available [facility] (Lab) [address], [place], [address], 04/03/2025 12:34:59 04/02/20 25 04/02/2025 RUBEL LA IGG ANTIB CHER, QUANT rubella antibodies, IgG Reacti ve reacti ve Not Available [facility] (Lab) [address] [place], [address], 04/03/2025 12:34:59 04/02/20 25 04/02/2025 RUBEL LA IGG ANTIB CHER, QUANT rubella antibodies, IgG quant 20.7 IU/mL >=10 Non-r eacti ve (Non- Immun e) <10 IU/mL React nicholas (Immu ne) > or = 10 IU/mL Not Available [facility] (Lab) [address], [place], [address], 04/03/2025 12:34:59 04/02/20 25 04/02/2025 TYPE/ RH/SC REEN ABO/Rh type A POS Not Available [facility] (Lab) [address], [place], [address], 04/03/2025 12:35:00 04/02/20 25 04/02/2025 TYPE/ RH/SC REEN antibody screen NEG Not Available [facility] (Lab) [address], [place], [address], 04/03/2025 12:35:00 04/02/20 25 04/02/2025 TYPE/ RH/SC REEN exp date 2024 23:59 Not Available [facility] (Lab) [address], [place], [address], 04/03/2025 12:35:00 04/02/20 25 04/02/2025 HEMOG LOBIN [...] >8.0% Actio n sugge sted Not Available [facility] (Lab) [address], [place], [address], 04/03/2025 12:35:00 04/02/20 25 04/02/2025 RPR SCREE N, REFLE X TITER /CONF IRMAT ION RPR qualitative Nonrea ctive nonrea ctive Not Available [facility] (Lab) [address], [place], [address], 04/03/2025 12:35:01 06/04/2006/04/2025 CT/GC AND TRICH OMONA S VAGIN DARÍO (RRNA ), URINE chlamydia trachomatis, PCR Negati ve negati ve Not Available [facility] (Lab) [address], [place], [address], 06/06/2025 00:50:21 06/04/2006/04/2025 CT/GC AND TRICH OMONA S VAGIN DARÍO (RRNA ), URINE neisseria gonorrhoeae, PCR Negati ve negati ve Not Available [facility] (Lab) [address], [place], [address], 06/06/2025 00:50:21 06/04/2006/04/2025 CT/GC AND TRICH OMONA S VAGIN DARÍO (RRNA ), URINE trichomonas vaginalis ribosomal RNA (rrna) Negati ve negati ve Not Available [facility] (Lab) [address], [place], [address], 06/06/2025 00:50:21 06/04/2006/04/2025 CULTU RE: URINE result report SEE RESULT S BELOW Test: Cultu re: Urine Speci men Sourc e: Urine - Clean Catch Speci men Type: Urine Speci men Date: 1121 Resul t Date: 2346 Resul t Statu s: Final resul t Abnor mal: No Resul ting Lab: [facility] [address] [address] Tel: CULTU RE ----- ----- ----- --- No growt h in 1 day (dete ction level of 10,00 0 colon ies / ml.) Not Available [facility] (Lab) [address], [place], [address], 06/06/2025 00:50:22 04/02/20 25 04/02/2025 US, obste tric, nucha l trans lucen cy No observ ation record ed. [facility] [address], [place], [address], 04/02/2025 18:12:46 04/02/20 25 04/02/2025 US, obste tric, nucha l trans lucen cy No observ ation record ed. [email or web address] Renée [address], [place], [address], 04/03/2025 09:42:47 06/04/20 25 06/04/2025 US, obste tric, 2nd or 3rd trime ster No observ ation record ed. [facility] [address], [place], [address], 06/04/2025 12:59:14 06/04/20 25 06/04/2025 US, obste tric, 2nd or 3rd trime ster No observ ation record ed. Renée [address], [place], [address], 06/05/2025 15:57:49 06/29/20 25 06/29/2025 US, obste tric, limit ed No observ ation record ed. [address], [address], 07/03/2025 15:41:17 06/29/20 25 06/29/2025 US, obste tric, limit ed No observ ation record ed. [address], [address], 07/03/2025 15:40:37 07/30/20 25 07/30/2025 non-s tress test No observ ation record ed. [address], [address], 07/31/2025 15:49:44 08/27/20 25 08/27/2025 US, obste tric, follo w-up No observ ation record ed. [email or web address] [place] [address], [place], [address], 08/27/2025 18:12:06 08/27/20 25 08/27/2025 US, obste tric, follo w-up No observ ation record ed. ARIEL Renée [address], [place], [address], 09/06/2025 13:26:38 09/12/2009/12/2025 non-s tress test No observ ation record ed. [address] [facility], [place], [address], 09/17/2025 10:35:29 09/18/2009/17/2025 imagi ng/di agnos tic resul t No observ ation record ed. [address] [address], [place], [address], 09/18/2025 09:59:20 09/18/20 25 09/18/2025 US, monae tric, follo w-up No observ ation record ed. [email or web address] [place] [address], [place], [address], 09/18/2025 13:44:01 09/18/20 25 09/18/2025 US, risa kee, bioph ysica l profi le No observ ation record ed. [email or web address] [place] [address], [place], [address], 09/18/2025 13:44:13 09/18/20 25 09/18/2025 US, obste tric, follo w-up No observ ation record ed. [email or web address] Renée [address], [place], [address], 09/18/2025 13:07:33 Result Notes None recorded. Problems Name Problem SNOMED Code Status Onset Date Resolution Date Notes Provider Name and Address Organization Details Recorded Time Attentio n deficit hyperact ivity disorder 827222084 Completed No meds Aleena Jccolletteheiketrishamichelle rangelGUTHRIE [facility] 12:17:26 Acute depressi on 159786592 Completed To start zoloft 25mg Aleena Michelelaine yessica [facility] 12:17:26 Alpha-fe toprotei n above referenc e range 237398561 Completed [facility] 01/21 - No evidence of NTD from [facility] u/s, but incomple te. [facility] U/S 02/14/21. NSTs & serial growth @ 32 wks - Getting at [facility] Aleena Jcklever juan juan carlosGUTHRI[facility] 12:17:26 Pruritic urticari al papules and plaques of pregnanc y 66818831 Completed steroid cream Aleena Jccolletteheikeelaine juan [facility] 12:17:26 Pregnanc y 01903063 Completed 202006/25/[address] [facility] 5 17:55:10 Pregnanc y 17168340 Active [address] [facility] 5 17:55:10 Past pregnanc y history of gestatio nal diabetes mellitus 380036958 Active 2024 JERRY LEVI MD [address], [place], [address], [place] [facility] 5 11:07:10 Gestatio nal diabetes mellitus class A1 24609070 Active 2024 serial growth JERRY LEVI MD [address], [place], [address], [facility] 5 16:38:45 Breech presenta tion 4805365 Active 2024 footling breech, desires ECV JERRY LEVI MD [address], [place], [address], [facility] 5 14:03:22 Problem Notes None recorded. Procedures Surgical History Date Name Laterality Status Provider Name and Address Organization Details Recorded Time 3 Dilation and Curettage completed Tiff Ramesh [facility] 03/07/2025 17:49:40 0 Date of Last Pap Smear completed Brianne Sampson [facility] 04/15/2021 10:16:56 0 Dilation and Curettage completed Adriana Orozco [facility] 02/11/2021 19:34:56 Imaging Results None recorded. Procedure Notes None recorded. Medical Equipment None Reported. Allergies Allergen ID Allergen Name Allergen Category Reaction Reaction Severity Criticality Documentation Date Start Date Code Code System Note Provider Name and Address Organization Details Recorded Time 68997 latex environme nt,medica tion swelling Not available high 08/16/20252021 11933 91 RxNorm React ion: Not Available ariel [...] Updated DateTime 08/27/2025 170.18 cm 30.2 kg/m2 96340.33 g 107/72 mm[Hg] Yanira Islas [facility] 08/27/2025 15:40:28 Social History Question Answer Notes LastModified by Organizat ion Details LastModified Time Tobacco Smoking Status Never Smoker Brianne Sampson juan carlos, [facility] 11/24/2020 18:33:42 If You Are , What Was Your Level Of Alcohol Consumption Prior To ? None [email or web address] Information not available 01/14/2021 Are You Blind Or Do You Have Difficulty Seeing? No [email or web address] Information n ot available 01/14/2021 What Is Your Level Of Caffeine Consumption? Occasional Information not available 01/14/2021 In The 14 Days Before Symptom Onset, Have You Had Close Contact With A Laboratory-confirm ed COVID-19 While That Case Was Ill? No [email or web address] Information n ot available 01/14/2021 In The 14 Days Before Symptom Onset, Have You Had Close Contact With A Person Who Is Under Investigation For COVID-19 While That Person Was Ill? No [email or web address] Information not available 01/14/2021 Have You Been To An Area Known To Be High Risk For COVID-19? No [email or web address] Information not available 01/14/2021 Are You Deaf Or Do You Have Serious Difficulty Hearing? No [email or web address] Information not available 01/14/2021 What Type Of Diet Are You Following? REGULAR [email or web address] Information n ot available 01/14/2021 Have You Ever Been Counseled For Unhealthy Alcohol Use? No [email or web address] Information not available 01/14/2021 Do You Use Your Seat Belt Or Car Seat Routinely? Yes [email or web address] Information not available 01/14/2021 Do You Have Smoke And Carbon Monoxide Detectors In Your Home? Yes [email or web address] Information not available 01/14/2021 Do You Use Sunscreen Routinely? Yes [email or web address] Information not available 01/14/2021 Has Tobacco Cessation Counseling Been Provided? No [email or web address] Information not available 01/14/2021 Sex: Unknown Functional Status Question Answer Note LastModified by Organizat ion Details LastModified Time Do you use any illicit or recreational drugs? No [email or web address] Information not available 01/14/2021 Do you or have you ever used any other forms of tobacco or nicotine? No [email or web address] Information not available 01/14/2021 What is your level of alcohol consumption? Occasional [email or web address] Information not available 01/14/2021 Are you able to walk independently without assistance or assistive devices? YESWOREST [email or web address] Information not available 01/14/2021 What is your exercise level? Occasional Information not available 01/14/2021 Mental Status Question Answer Note LastModified by Organization D etails LastModified Time Do you feel stressed (tense, restless, nervous, or anxious, or unable to sleep at night)? [id number] [email or web address] Information not available 01/14/2021 Family History Relationship Description Onset Age of this Age Resolved Age Notes LastModified by Organization Details LastModified Time Father No current problems or disability [email or web address] Not available 11/24 18:33:35 Mother No current problems or disability [email or web address] Not available 11/24 18:33:35 Medical History Condition [...] ICD10 Code Diagnosis IMO Codes Diagnosis Note [id number] JERRY LEVI MD [place] [address] [address] 07/29/2025 09:19:43 07/29/2025 10:06:04 Past history of gestational diabetes mellitus 036288088 O09.299 Z86.32 9265851 - GCT today Gestation period, 28 weeks 92738376 Z3A.28 5931255 - continue PNV [id number] Levy Garvin MD [place] [address],[place] [address] 08/16/2025 15:48:14 08/18/2025 09:10:55 care status 018710422 Z34.83 [id number] [id number] JERRY LEVI MD [place] [address],[place] [address] 08/23/2025 16:39:37 08/24/2025 08:01:43 Gestational diabetes mellitus 19606076 O24.410 54195849 - well controlled with diet, did not start insulin- continue glucose monitoring - serial growth US Gestation period, 32 weeks 4729339 Z3A.32 8020913 - continue PNV [id number] MD Rubi KENT [address],[place] [address] 08/27/2025 14:57:39 08/27/2025 15:28:35 Gestational diabetes mellitus 34624334 O24.410 Z3A.32 37424190 - well controlled with diet, did not start insulin- continue glucose monitoring - serial growth [id number] JERRY LEVI MD [place] [address] [address] 08/27/2025 14:58:21 08/27/2025 16:49:27 Gestational diabetes mellitus class A1 80142814 O24.410 [address]5411 - well controlled with diet, did not start insulin- continue glucose monitoring - serial growth US Gestation period, 32 weeks 6222259 Z3A.32 0704969 - continue PNV Health Concerns Section Related Observation LastModified by Organization Detai ls LastModified Time None Recorded Concern Status LastModified by Organization Details LastModified Time None Recorded Payers Encounter Date Sequence Insurance Name Policy Number Policy Fabian Covered Member ID Fabian Member ID Guarantor Name 08/27/2025 1 [facility] (MEDICAID HMO) [id number] Oscar Elliott [id number] Oscar Elliott Notes Date Note Type Note Provider Name and Address Organization Details Recorded Time 08/27/2025 text/html Generic HPI TemplateReported by Patient JERRY LEVI MD [address], [place], [address], [facility] 08/27/2025 16:39:12 OBGyn Episode Ob Episode Information Episode Created Date Number of Fetuses Patient Bloodtype Patient rh Status Prepregnancy Weight lbs Domestic Partner Domestic Partner Phone Father Name Public Speaking Coach Status 04/02/20 1 A Positive 174 OPEN Fetus Data First Name Last Name Admitted to NICU Weight (g) Sex Living Outcome Pediatric Complications Fetus ID Race Codes Race Delivery Type [id number] Problems Problem Notes Problem Name Start Date End Date Resolution Snomed Code Not e Past history of gestational diabetes mellitus 05/10/2025 635246947 Gestational diabetes mellitus class A1 08/27/2025 81766340 serial nadir wth US Breech presentation 09/18/2025 5001655 footling breech, desires ECV Johann Calculation Initial [...] Sound Latest Days Gestation 06/04/20 25 20 [email or web address] 04/02/2025 10/17/19 26 5 Pre- Flowsheet Flowsheet Date 04/02/2025 Hale Score Blood Edema Fundus Height Fundus Units Glucose Ketones Leukocytes Nitrite Labor Signs Protein Cervic Dilation Cervic Effacement Cervic Station neg none Type Weight in lbs Pre/Post Dialysis Refused Weight 171.590270962440 BP Diastolic BP Location Tested BP Systolic BP Type 76 L arm 110 sitting Fetus Heart Rate Present A Present Fetus Movement A No Comments Patient presents to [facility] care. Hx of gestational diabetes in [...] Weight in lbs Pre/Post Dialysis Refused Weight 173.255070266258 BP Diastolic BP Location Tested BP Systolic [...] Type Weight in lbs Pre/Post Dialysis Refused 180.465907537704 BP Diastolic BP Location Tested BP Systolic [...] Weight in lbs Pre/Post Dialysis Refused Weight 184.978649200244 BP Diastolic BP Location Tested BP Systolic BP Type 67 L arm 101 sitting Fetus Heart Rate Present A 145 Fetus Movement A Yes Comments Doing well, baby active. No cramping. Had increased vaginal pressure and one episode of spotting on Tuesday, went to [place] and workup was negative. Discussed GCT and labs for next visit. RTC 4 weeks. Flowsheet Date 07/29/2025 Hale Score Blood Edema Fundus Height Fundus Units Glucose Ketones Leukocytes Nitrite Labor Signs Protein Cervic Dilation Cervic Effacement Cervic Station Type Weight in lbs Pre/Post Dialysis Refused 192.862731425814 BP Diastolic BP Location Tested BP Systolic [...] Weight in lbs Pre/Post Dialysis Refused Weight 193.635606437272 BP Diastolic BP Location Tested BP Systolic BP Type 60 L arm 96 sitting Fetus Heart Rate Present A 146 Present Fetus Movement A Yes Comments patient did not attend diabe smiley education. Did not hand picker insulin and supplies. She was counseled [...] Weight in lbs Pre/Post Dialysis Refused Weight 193.824144721915 BP Diastolic BP Location Tested BP Systolic [...] Weight in lbs Pre/Post Dialysis Refused Weight 193.509467323334 BP Diastolic BP Location Tested BP Systolic [...] having decr eased movement, was seen at [place] last night and had reactive NST. [place] [...]
--- OUTSIDE RECORDS SUMMARY | 2025-09-19 23:55 | XMS_ITS | Continuity of Care Document ---
Author Organization [facility] Ashley Address [address] [place] [address] [place] [address] Assessment No assessment recorded. Plan of Treatment [...] recorded . Surgeries None recorded . Imaging US, obstetri c, follow-u p 2024 025 [address], [address], [place], [address], 08/28/2025 16:32:31 Medication Orders None recorded . Patient TargetsNo targets recorded. Patient InstructionsNo instructions recorded. Reason for Referral None Reported. Results Created Date Observation Date Name Description Value Unit Range Abnormal Flag Note LastModifiedBy Organization Detail LastModifiedTime 04/09/2004/09/2025 [UNIT Y] ANEUP LOIDY NIPT fraction 8.7% normal Not Available Charly wise [address], [place], [address], 04/09/2025 23:26:44 04/09/20 25 04/09/2025 [UNIT Y] ANEUP LOIDY NIPT sex chromosome aneuploidy NOT DETECT ED normal Not Available Jonah contreras [address], [place], [address], 04/09/2025 23:26:44 04/09/20 25 04/09/2025 [UNIT Y] ANEUP LOIDY NIPT monosomy X LOW RISK <1 in 10,000 normal Not Available [facility] [address], [place], [address], 04/09/2025 23:26:44 04/09/20 25 04/09/2025 [UNIT Y] ANEUP LOIDY NIPT trisomy 13 LOW RISK <1 in 10,000 normal Not Available [facility] [address], [place], [address], 04/09/2025 23:26:44 04/09/20 25 04/09/2025 [UNIT Y] ANEUP LOIDY NIPT trisomy 18 LOW RISK <1 in 10,000 normal Not Available [facility] [address], [place], [address], 04/09/2025 23:26:44 04/09/20 25 04/09/2025 [UNIT Y] ANEUP LOIDY NIPT trisomy 21 LOW RISK <1 in 10,000 normal Not Available [facility] [address], [place], [address], 04/09/2025 23:26:44 04/09/20 25 04/09/2025 [UNIT Y] ANEUP LOIDY NIPT sex FEMALE normal Not Available [facility] [address], [place], [address], 04/09/2025 23:26:44 04/09/20 25 04/09/2025 [UNIT Y] ANEUP LOIDY NIPT gestation SINGLE TON normal Not Available [facility] [address], [place], [address], 04/09/2025 23:26:44 04/09/20 25 04/09/2025 [UNIT Y] ANEUP LOIDY NIPT for detailed report, see pdf See PDF normal Not Available [facility] [address], [place], [address], 04/09/2025 23:26:44 04/15/20 25 04/15/2025 [UNIT Y] JOVANY Frey fraction 5.4% normal Not Available Billrebecca castroe [address], [place], [address], 04/15/2025 23:58:47 04/15/20 25 04/15/2025 [UNIT Y] JOVANY Frey sickle cell disease/beta -thalassemia /hemoglobino pathies nipt result LOW RISK < 1 in 3200 normal Not Available [facility] [address], [place], [address], 04/15/2025 23:58:47 04/15/20 25 04/15/2025 [UNIT Y] JOVANY Frey sickle cell disease/beta -thalassemia /hemoglobino pathies carrier screen POSITI VE Sickle cell: c.20A> T (p.Glu 7Val) abnormal Not Available [facility] [address], [place], [address], 04/15/2025 23:58:47 04/15/20 25 04/15/2025 [UNIT Y] JOVAYN Frey alpha-thalas semia carrier screen NEGATI VE normal Not Available [facility] [address], [place], [address], 04/15/2025 23:58:47 04/15/20 25 04/15/2025 [UNIT Y] JOVANY Frey cystic fibrosis carrier screen NEGATI VE normal Not Available [facility] [address], [place], [address], 04/15/2025 23:58:47 04/15/20 25 04/15/2025 [UNIT Y] JOVANY Frey spinal muscular atrophy carrier screen NEGATI VE 3 SMN1 copies , SNP presen t normal Not Available [facility] [address], [place], [address], 04/15/2025 23:58:47 04/15/20 25 04/15/2025 [UNIT Y] JOVANY LOPEZ Shante for detailed report, see pdf See PDF normal Not Available [facility] [address], [place], [address], 04/15/2025 23:58:47 04/02/20 25 04/02/2025 HIV 1/2 ANTIG EN/AN TIBOD Y, REFLE X CONFI RMATI ON HIV antigen/anti body Nonrea ctive nonrea ctive HIV-1 antig en and HIV-1 /HIV- 2 antib odies were not detec nhan. No labor atory evide nce of HIV infec tion. Not Available [facility] (Lab) [address], [place], [address], 04/03/2025 12:34:58 04/02/20 25 04/02/2025 HEPAT ITIS B SURFA CE ANTIG EN hepatitis B surface antigen Non-re active non-re active This assay was perfo rmed using [employer] ratio n reage nts and test kits. Value s obtai tunde with other assay metho ds or kits canno t be used inter baez eably . Not Available [facility] (Lab) [address], [place], [address], 04/03/2025 12:34:58 04/02/20 25 04/02/2025 CBC W/DIF F WBC 10.3 10'3/ uL 3.5-10 .5 Not Available [facility] (Lab) [address], [place], [address], 04/03/2025 12:34:59 04/02/20 25 04/02/2025 CBC W/DIF F RBC 3.84 10'6/ uL (based on docume nted legal sex) 3.80-5 .20 Not Available [facility] (Lab) [address], [place], [address], 04/03/2025 12:34:59 04/02/20 25 04/02/2025 CBC W/DIF F HGB 11.8 g/dL (based on docume nted legal sex) 11.6-1 5.4 Not Available [facility] (Lab) [address], [place], [address], 04/03/2025 12:34:59 04/02/20 25 04/02/2025 CBC W/DIF F HCT 34.1 % (based on docume nted legal sex) 34.0-4 5.0 Not Available [facility] (Lab) [address], [place], [address], 04/03/2025 12:34:59 04/02/20 25 04/02/2025 CBC W/DIF F MCV 88.8 fL 80.0-9 9.0 Not Available [facility] (Lab) [address], [place], [address], 04/03/2025 12:34:59 04/02/20 25 04/02/2025 CBC W/DIF F MCH 30.7 pg 27.0-3 4.0 Not Available [facility] (Lab) [address], [place], [address], 04/03/2025 12:34:59 04/02/20 25 04/02/2025 CBC W/DIF F MCHC 34.6 g/dL 32.0-3 5.5 Not Available [facility] (Lab) [address], [place], [address], 04/03/2025 12:34:59 04/02/20 25 04/02/2025 CBC W/DIF F RDW 12.5 % 11.0-1 5.0 Not Available [facility] (Lab) [address], [place], [address], 04/03/2025 12:34:59 04/02/20 25 04/02/2025 CBC W/DIF F plt 267 10'3/ uL 150-40 0 Not Available [facility] (Lab) [address], [place], [address], 04/03/2025 12:34:59 04/02/20 25 04/02/2025 CBC W/DIF F MPV 10.2 fL 8.8-12 .1 Not Available [facility] (Lab) [address], [place], [address], 04/03/2025 12:34:59 04/02/20 25 04/02/2025 CBC W/DIF F NRBC's 0.0 % 0.0 Not Available [facility] (Lab) [address], [place], [address], 04/03/2025 12:34:59 04/02/20 25 04/02/2025 CBC W/DIF F absolute NRBCs 0.0 10'3/ uL no refere nce range establ ished Not Available [facility] (Lab) [address], [place], [address], 04/03/2025 12:34:59 04/02/20 25 04/02/2025 CBC W/DIF F neutrophils 73.5 % 34.0-7 3.0 high Not Available [facility] (Lab) [address], [place], [address], 04/03/2025 12:34:59 04/02/20 25 04/02/2025 CBC W/DIF F lymphocytes 18.6 % 15.0-5 0.0 Not Available [facility] (Lab) [address], [place], [address], 04/03/2025 12:34:59 04/02/20 25 04/02/2025 CBC W/DIF F monocytes 6.1 % 1.0-15 .0 Not Available [facility] (Lab) [address], [place], [address], 04/03/2025 12:34:59 04/02/20 25 04/02/2025 CBC W/DIF F eosinophils 1.3 % 0.0-8. 0 Not Available [facility] (Lab) [address], [place], [address], 04/03/2025 12:34:59 04/02/20 25 04/02/2025 CBC W/DIF F basophils 0.2 % 0.0-2. 0 Not Available [facility] (Lab) [address], [place], [address], 04/03/2025 12:34:59 04/02/2004/02/2025 CBC W/DIF F immature granulocytes 0.3 % no define d refere nce range Immat ure Granu locyt es (IG) repre sents autom ated enume ratio n of Metam yeloc ytes, Myelo cytes and Promy elocy smiley when IG is < 5%. Blast s are not inclu ded in IG and repor nhan separ ately if prese nt. Not Available [facility] (Lab) [address], [place], [address], 04/03/2025 12:34:59 04/02/20 25 04/02/2025 CBC W/DIF F absolute neutrophils 7.6 10'3/ uL 1.5-8. 0 Not Available [facility] (Lab) [address], [place], [address], 04/03/2025 12:34:59 04/02/2004/02/2025 CBC W/DIF F absolute lymphocytes 1.9 10'3/ uL 1.0-4. 0 Not Available [facility] (Lab) [address], [place], [address], 04/03/2025 12:34:59 04/02/20 25 04/02/2025 CBC W/DIF F absolute monocytes 0.6 10'3/ uL 0.2-1. 0 Not Available [facility] (Lab) [address], [place], [address], 04/03/2025 12:34:59 04/02/20 25 04/02/2025 CBC W/DIF F absolute eosinophils 0.1 10'3/ uL 0.0-0. 6 Not Available [facility] (Lab) [address], [place], [address], 04/03/2025 12:34:59 04/02/20 25 04/02/2025 CBC W/DIF F absolute basophils 0.0 10'3/ uL 0.0-0. 3 Not Available [facility] (Lab) [address], [place], [address], 04/03/2025 12:34:59 04/02/20 25 04/02/2025 CBC W/DIF F absolute immature granulocytes 0.0 10'3/ uL 0.00-0 .10 Refer ence range s for nonbi nary/ inter sex or unspe cifie d gende r patie nts have not been estab lishe d. Pleas e refer to the sammo wing table for range s estab lishe d for cisge nder patie nts and evalu ate in the clini fady rajan xt of the indiv idual patie nt: https ://la bhand book. nm.or g/gen derx Not Available [facility] (Lab) [address], [place], [address], 04/03/2025 12:34:59 04/02/20 25 04/02/2025 HEPAT ITIS C ANTIB CHER SCREE N, REFLE X TO CONFI RMATI ON hepatitis C antibody Non-re active non-re active Antib odies to HCV Not Detec nhan, does not exclu de the possi bilit y of expos ure to HCV. Not Available [facility] (Lab) [address], [place], [address], 04/03/2025 12:34:59 04/02/20 25 04/02/2025 RUBEL LA IGG ANTIB CHER, QUANT rubella antibodies, IgG Reacti ve reacti ve Not Available [facility] (Lab) [address], [place], [address], 04/03/2025 12:34:59 04/02/20 25 04/02/2025 RUBEL LA IGG ANTIB CHER, QUANT rubella antibodies, IgG quant 20.7 IU/mL >=10 Non-r eacti ve (Non- Immun e) <10 IU/mL React nicholas (Immu ne) > or = 10 IU/mL Not Available [facility] (Lab) [address], [place], [address], 04/03/2025 12:34:59 04/02/20 25 04/02/2025 TYPE/ RH/SC REEN ABO/Rh type A POS Not Available [facility] (Lab) [address], [place], [address], 04/03/2025 12:35:00 04/02/20 25 04/02/2025 TYPE/ RH/SC REEN antibody screen NEG Not Available [facility] (Lab) [address], [place], [address], 04/03/2025 12:35:00 04/02/20 25 04/02/2025 TYPE/ RH/SC REEN exp date 2024 23:59 Not Available [facility] (Lab) [address], [place], [address], 04/03/2025 12:35:00 04/02/20 25 04/02/2025 HEMOG LOBIN A1C hemoglobin A1C 4.5 % 4.0-5. 6 The Ameri can Diabe smiley [employer] iatio n recom mends that a prima ry goal of thera py nissa javier be a HBA1C of < 7% and that physi cians nissa d reeva luate the treat ment regim en in patie nts with HBA1C value s consi stent ly > 8%. <5.7% Jerica l 5.7 - 6.4% Incre ased risk for diabe smiley >=6.5 % Diagn ostic of diabe smiley <7.0% Goal of thera py >8.0% Actio n sugge sted Not Available [facility] (Lab) [address], [place], [address], 04/03/2025 12:35:00 04/02/2004/02/2025 RPR SCREE N, REFLE X TITER /CONF IRMAT ION RPR qualitative Nonrea ctive nonrea ctive Not Available [facility] (Lab) [address], [place], [address], 04/03/2025 12:35:01 06/04/2006/04/2025 CT/GC AND TRICH OMONA S VAGIN DARÍO (RRNA ), URINE chlamydia trachomatis, PCR Negati ve negati ve Not Available [facility] (Lab) [address], [place], [address], 06/06/2025 00:50:21 06/04/20 25 06/04/2025 CT/GC AND TRICH OMONA S VAGIN DARÍO (RRNA ), URINE neisseria gonorrhoeae, PCR Negati ve negati ve Not Available [facility] (Lab) [address], [place], [address], 06/06/2025 00:50:21 06/04/2006/04/2025 CT/GC AND TRICH OMONA S VAGIN DARÍO (RRNA ), URINE trichomonas vaginalis ribosomal RNA (rrna) Negati ve negati ve Not Available [facility] (Lab) [address], [place], [address], 06/06/2025 00:50:21 06/04/2006/04/2025 CULTU RE: URINE result report SEE RESULT S BELOW Test: Cultu re: Urine Speci men Sourc e: Urine - Clean Catch Speci men Type: Urine Speci men Date: 1121 Resul t Date: 2346 Resul t Statu s: Final resul t Abnor mal: No Resul ting Lab: [facility] [address] [facility] [id number] Tel: CULTU RE ----- ----- ----- --- No growt h in 1 day (dete ction level of 10,00 0 colon ies / ml.) Not Available [facility] (Lab) [address], [place], [address], 06/06/2025 00:50:22 04/02/20 25 04/02/2025 US, obste tric, nucha l trans lucen cy No observ ation record ed. [facility] [address], [place], [address], 04/02/2025 18:12:46 04/02/20 25 04/02/2025 US, obste tric, nucha l trans lucen cy No observ ation record ed. [email or web address] Renée [address], [place], [address], 04/03/2025 09:42:47 06/04/20 25 06/04/2025 US, obste tric, 2nd or 3rd trime ster No observ ation record ed. [facility] [address], [place], [address], 06/04/2025 12:59:14 06/04/20 25 06/04/2025 US, obste tric, 2nd or 3rd trime ster No observ ation record ed. [email or web address] Renée [address], [place], [address], 06/05/2025 15:57:49 06/29/20 25 06/29/2025 US, obste tric, limit ed No observ ation record ed. [address] [place] [address], [address], 07/03/2025 15:41:17 06/29/20 25 06/29/2025 US, obste tric, limit ed No observ ation record ed. [address], [address], 07/03/2025 15:40:37 07/30/2007/30/2025 non-s tress test No observ ation record ed. [place] [id number] [facility] [address], [place], [address], 07/31/2025 15:49:44 08/27/2008/27/2025 US, obste tric, follo w-up No observ ation record ed. [facility] [address], [place], [address], 08/27/2025 18:12:06 08/27/2008/27/2025 US, obste tric, follo w-up No observ ation record ed. ARIEL Chinchilla [address], [place], [address], 09/06/2025 13:26:38 09/12/2009/12/2025 non-s tress test No observ ation record ed. [address], [place], [address], 09/17/2025 10:35:29 09/18/2009/17/2025 imagi ng/di agnos tic resul t No observ ation record ed. [address] [address], [place], [address], 09/18/2025 09:59:20 09/18/2009/18/2025 US, obste tric, follo w-up No observ ation record ed. [email or web address] Ashley [address], [place], [address], 09/18/2025 13:44:01 09/18/20 25 09/18/2025 US, obstben tric, bioph ysica l profi le No observ ation record ed. [email or web address] Ashley [address], [place], [address], 09/18/2025 13:44:13 09/18/20 25 09/18/2025 US, obste tric, follo w-up No observ ation record ed. [email or web address] Renée [address], [place], [address], 09/18/2025 13:07:33 Result Notes None recorded. Problems Name Problem SNOMED Code Status Onset Date Resolution Date Notes Provider Name and Address Organization Details Recorded Time Attentio n deficit hyperact ivity disorder 555198897 Completed No meds Aleena rangel [facility] 12:17:26 Acute depressi on 531415019 Completed To start zoloft 25mg Aleena rangel [facility] 12:17:26 Alpha-fe toprotei n above referenc e range 664032946 Completed [facility] 01/21 - No evidence of NTD from 1st u/s, but incomple te. Rpt U/S 02/14/21. NSTs & serial growth @ 32 wks - Getting at [facility] Aleena rangel [facility] 12:17:26 Pruritic urticari al papules and plaques of pregnanc y 76156767 Completed steroid cream Aleena rangel [facility] 12:17:26 Pregnanc y 04710124 Completed 202006/25/2021 SO rangel [facility] 5 17:55:10 Pregnanc y 86095229 Active 2024 SO rangel [facility] 5 17:55:10 Past pregnanc y history of gestatio nal diabetes mellitus 889674188 Active 2024 JERRY LEVI MD [address], [place], [address], [facility] 5 11:07:10 Gestatio nal diabetes mellitus class A1 95469942 Active 2024 serial growth US JERRY LEVI MD [address], [place], [address], [facility] 5 16:38:45 Breech presenta tion 3840185 Active 2024 footling breech, desires ECV JERRY LEVI MD [address], [place], [address], [facility] 5 14:03:22 Problem Notes None recorded. Procedures Surgical History Date Name Laterality Status Provider Name and Address Organization Details Recorded Time 3 Dilation and Curettage completed Tiff Ramesh [facility] 03/07/2025 17:49:40 0 Date of Last Pap Smear completed Brianne Sampson [facility] 04/15/2021 10:16:56 0 Dilation and Curettage completed Adriana Orozco [facility] 02/11/2021 19:34:56 Imaging Results None recorded. Procedure Notes None recorded. Medical Equipment None Reported. Allergies Allergen ID Allergen Name Allergen Category Reaction Reaction Severity Criticality Documentation Date Start Date Code Code System Note Provider Name and Address Organization Details Recorded Time 43867 latex environme nt,medica tion swelling Not available high 08/16/20252021 18936 91 RxNorm React ion: Not Available ariel [...] Updated DateTime 08/27/2025 170.18 cm 30.2 kg/m2 01126.33 g 107/72 mm[Hg] Yanira Roshan [facility] 08/27/2025 15:40:28 Social History Question Answer Notes LastModified by Organizat ion Details LastModified Time Tobacco Smoking Status Never Smoker Brianne Sampson juan carlos, [facility] 11/24/2020 18:33:42 If You Are , What Was Your Level Of Alcohol Consumption Prior To ? None [email or web address] Information not available 01/14/2021 Are You Blind Or Do You Have Difficulty Seeing? No [email or web address] Information n ot available 01/14/2021 What Is Your Level Of Caffeine Consumption? Occasional [email or web address] Information not available 01/14/2021 In The 14 Days Before Symptom Onset, Have You Had Close Contact With A Laboratory-confirm ed COVID-19 While That Case Was Ill? No [email or web address] Information n ot available 01/14/2021 In The 14 Days Before Symptom Onset, Have You Had Close Contact With A Person Who Is Under Investigation For COVID-19 While That Person Was Ill? No [email or web address] Information not available 01/14/2021 Have You Been To An Area Known To Be High Risk For COVID-19? No [email or web address] Information not available 01/14/2021 Are You Deaf Or Do You Have Serious Difficulty Hearing? No [email or web address] Information not available 01/14/2021 What Type Of Diet Are You Following? REGULAR [email or web address] Information n ot available 01/14/2021 Have You Ever Been Counseled For Unhealthy Alcohol Use? No [email or web address] Information not available 01/14/2021 Do You Use Your Seat Belt Or Car Seat Routinely? Yes Information not available 01/14/2021 Do You Have Smoke And Carbon Monoxide Detectors In Your Home? Yes [email or web address] Information not available 01/14/2021 Do You Use Sunscreen Routinely? Yes [email or web address] Information not available 01/14/2021 Has Tobacco Cessation Counseling Been Provided? No [email or web address] Information not available 01/14/2021 Sex: Unknown Functional Status Question Answer Note LastModified by Organizat ion Details LastModified Time Do you use any illicit or recreational drugs? No [email or web address] Information not available 01/14/2021 Do you or have you ever used any other forms of tobacco or nicotine? No [email or web address] Information not available 01/14/2021 What is your level of alcohol consumption? Occasional Information not available 01/14/2021 Are you able to walk independently without assistance or assistive devices? [email or web address] Information not available 01/14/2021 What is your exercise level? Occasional [email or web address] Information not available 01/14/2021 Mental Status Question Answer Note LastModified by Organization D etails LastModified Time Do you feel stressed (tense, restless, nervous, or anxious, or unable to sleep at night)? [id number] [email or web address] Information not available 01/14/2021 Family History Relationship Description Onset Age of this Age Resolved Age Notes LastModified by Organization Details LastModified Time Father No current problems or disability Not available 11/24 18:33:35 Mother No current problems or disability [email or web address] Not available 11/24 18:33:35 Medical History Condition [...] ICD10 Code Diagnosis IMO Codes Diagnosis Note [id number] JERRY LEVI MD [facility] [address],[place] [address] 07/29/2025 09:19:43 07/29/2025 10:06:04 Past history of gestational diabetes mellitus 140713357 O09.299 Z86.32 6141378 - GCT today Gestation period, 28 weeks 75616776 Z3A.28 2007468 - continue PNV [id number] Levy Garvin MD Ashley [address],[place] [address] 08/16/2025 15:48:14 08/18/2025 09:10:55 care status 189654009 Z34.83 90038801 [id number] JERRY LEVI MD [facility] [address],[place] [address] 08/23/2025 16:39:37 08/24/2025 08:01:43 Gestational diabetes mellitus 25868441 O24.410 90752821 - well controlled with diet, did not start insulin- continue glucose monitoring - serial growth US Gestation period, 32 weeks 0271803 Z3A.32 5570471 - continue PNV [id number] JERRY LEVI MD [facility] [address] [address] 08/27/2025 14:57:39 08/27/2025 15:28:35 Gestational diabetes mellitus 69753415 O24.410 Z3A.32 97956245 - well controlled with diet, did not start insulin- continue glucose monitoring - serial growth [id number] JERRY LEVI MD [facility] [address] [address] 08/27/2025 14:58:21 08/27/2025 16:49:27 Gestational diabetes mellitus class A1 68508912 O24.410 34500 - well controlled with diet, did not start insulin- continue glucose monitoring - serial growth US Gestation period, 32 weeks 6835507 Z3A.32 6542667 - continue PNV Health Concerns Section Related Observation LastModified by Organization Detai ls LastModified Time None Recorded Concern Status LastModified by Organization Details LastModified Time None Recorded Payers Encounter Date Sequence Insurance Name Policy Number Policy Fabian Covered Member ID Fabian Member ID Guarantor Name 08/27/2025 1 [facility] (MEDICAID HMO) [id number] Oscar Elliott [id number] Oscar Elliott Notes Date Note Type Note Provider Name and Address Organization Details Recorded Time 08/27/2025 text/html Generic HPI TemplateReported by Patient JERRY LEVI MD [address], [place], [address], [facility] 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 Status 04/02/20 25 1 A Positive 174 OPEN Fetus Data First Name Last Name Admitted to NICU Weight (g) Sex Living Outcome Pediatric Complications Fetus ID Race Codes Race Delivery Type [id number] Problems Problem Notes Problem Name Start Date End Date Resolution Snomed Code Not e Past history of gestational diabetes mellitus 05/10/2025 970250550 Gestational diabetes mellitus class A1 08/27/2025 23315233 serial nadir wth US Breech presentation 09/18/2025 [id number] footling breech, desires ECV Johann Calculation Initial [...] Sound Latest Days Gestation 06/04/20 25 20 [email or web address] 04/02/2025 10/17/19 26 5 Pre-bushra Flowsheet Flowsheet Date 04/02/2025 Hale Score Blood Edema Fundus Height Fundus Units Glucose Ketones Leukocytes Nitrite Labor Signs Protein Cervic Dilation Cervic Effacement Cervic Station neg none Type Weight in lbs Pre/Post Dialysis Refused Weight 171.184043404126 BP Diastolic BP Location Tested BP Systolic BP Type 76 L arm 110 sitting Fetus Heart Rate Present A Present Fetus Movement A No Comments Patient presents to [facility] care. Hx of gestational diabetes in [...] Weight in lbs Pre/Post Dialysis Refused Weight [id number] BP Diastolic BP Location Tested BP Systolic [...] Type Weight in lbs Pre/Post Dialysis Refused 180.822986363670 BP Diastolic BP Location Tested BP Systolic [...] Weight in lbs Pre/Post Dialysis Refused Weight 184.474091377697 BP Diastolic BP Location Tested BP Systolic BP Type 67 L arm 101 sitting Fetus Heart Rate Present A 145 Fetus Movement A Yes Comments Doing well, baby active. No cramping. Had increased vaginal pressure and one episode of spotting on Tuesday, went to [place] and workup was negative. Discussed GCT and labs for next visit. RTC 4 weeks. Flowsheet Date 07/29/2025 Hale Score Blood Edema Fundus Height Fundus Units Glucose Ketones Leukocytes Nitrite Labor Signs Protein Cervic Dilation Cervic Effacement Cervic Station Type Weight in lbs Pre/Post Dialysis Refused 192.029497511479 BP Diastolic BP Location Tested BP Systolic [...] Weight in lbs Pre/Post Dialysis Refused Weight 193.835710099990 BP Diastolic BP Location Tested BP Systolic BP Type 60 L arm 96 sitting Fetus Heart Rate Present A 146 Present Fetus Movement A Yes Comments patient did not attend diabe smiley education. Did not tack picker insulin and supplies. She was counseled [...] Weight in lbs Pre/Post Dialysis Refused Weight 193.685178961289 BP Diastolic BP Location Tested BP Systolic [...] Weight in lbs Pre/Post Dialysis Refused Weight 193.810889167278 BP Diastolic BP Location Tested BP Systolic [...]
[2025-09-19 23:57] VITALS: PULSE 71; O2SAT 97
[2025-09-19 23:59] VITALS: TEMP 36.9
[2025-09-20 00:05] VITALS: BMI 35.3
--- NOTE | 2025-09-20 00:06 | OBADM ---
This patient, Oscar Elliott, admitted to the OB room Labor/Delivery/Recovery 119 for observation. Patient/family oriented to hospital policies and general routines including ID bracelet, bed and alarms, visiting hours, pain management, procedures, bathroom and other care routines, personal items, smoking policy, room service/diet, and visiting hours. Patient/Family are encouraged to report perceived risks to care and to ask questions if they do not understand what they are told or what they should do.
--- NOTE | 2025-10-13 22:04 | PM.OBTRLD ---
OB - Triage/Final Diagnosis Visit Information Comments/Additional reasons for admission: I have assessed the risk for this patient, Oscar Elliott, and determined that she would benefit from observation care. Final Diagnosis (1) Amniotic fluid leaking: Code(s): O42.90 - Premature rupture of membranes, unspecified as to length of time between rupture and onset of labor, unspecified weeks of gestation Status: Acute
== END 2025-09-20 00:23 | disposition home or self-care (01) ==
PROVIDERS: Admitting Provider Obstetrics & Gynecology; Visit Provider Obstetrics & Gynecology
DX: O42.90 Premature rupture of membranes, unspecified as to length of time between rupture and onset of labor, unspecified weeks of gestation (principal)
CPT/HCPCS: G0378; G0379

== ENCOUNTER 2025-09-27 23:46 | Observation (INO) | payer OTHER, MEDICAID, SELFPAY ==
[2025-09-27 23:59] VITALS: BP 130/73; PULSE 73
[2025-09-28] VITALS (20 sets, daily range): BP systolic 112–120; BP diastolic 58–97; PULSE 61–93; O2SAT 97–99; BMI 36.3
--- NOTE | 2025-09-28 00:14 | OBADM ---
This patient, Oscar Elliott, admitted to the OB room Labor/Delivery/Recovery 106 for observation. Patient/family oriented to hospital policies and general routines including ID bracelet, bed and alarms, visiting hours, pain management, procedures, bathroom and other care routines, personal items, smoking policy, room service/diet, and visiting hours. Patient/Family are encouraged to report perceived risks to care and to ask questions if they do not understand what they are told or what they should do.
== END 2025-09-28 02:05 | disposition home or self-care (01) ==
PROVIDERS: Admitting Provider Obstetrics & Gynecology; Visit Provider Obstetrics & Gynecology
DX: O47.1 False labor at or after 37 completed weeks of gestation (principal); Z3A.37 37 weeks gestation of pregnancy
CPT/HCPCS: G0378; G0379